=== PATIENT | female | born 1935 | race Caucasian/White ===

== ENCOUNTER 2017-09-19 18:16 | Emergency (ER) | payer BC ==
[~2017-09-19] VITALS: Ht 160 cm; Wt 62.3 kg
[~2017-09-19 18:16] MED LIST: BUPR-267 PO; ERGO500037 PO; LISI-461 PO; MAGNESIUM PO; PRX/40 PO; REPA0.5T PO; SIMV40TA2 PO; [UNRECOGNIZED DRUG - CODE] PO
[2017-09-19 18:19] VITALS: TEMP 36.3; Ht 160 cm; Wt 62.3 kg
[2017-09-19] MEDS ORDERED: ZCR40 PO (18:51)
[2017-09-19] MEDS ORDERED: METF500T5 PO (18:51)
[2017-09-19] MEDS ORDERED: SITA100T3 PO (18:51)
[2017-09-19] MEDS ORDERED: ASPI81TA28 PO (18:51)
[2017-09-19] MEDS ORDERED: TPRSR/25 PO (18:51)
[2017-09-19] MEDS ORDERED: PXL20 PO (18:51)
[2017-09-19] MEDS ORDERED: MULT-1092 PO (18:51)
[2017-09-19 18:52] LABS: BASO % 0.1 %; BASO ABS # 0.01 K/uL (0-0.2); COMPLETE YES; EOS % 1.1 %; HEMATOCRIT 44.5 % (37-47); IG% 0.1 %; MEAN CELL VOLUME 89.9 fL (80-100); MEAN CORPUSCULAR HEMOGLOBIN 30.1 pg (25-34); MEAN CORPUSCULAR HGB CONC 33.5 g/dl (32-36); MEAN PLATELET VOLUME 10.5 fL (7.4-10.4); MONO % 6.1 %; NEUT % 61.6 %; PLATELET COUNT 235 K/uL (130-400); RED BLOOD COUNT 4.95 M/uL (4.2-5.4); WHITE BLOOD COUNT 7.09 K/uL (4.8-10.8)
[2017-09-19 19:14] LABS: BUN/CREATININE RATIO 18.4 (10-20); CALCIUM 9.5 mg/dl (8.5-10.1); CREATININE 0.94 mg/dl (0.60-1.20); POTASSIUM 4.3 mmol/L (3.5-5.1)
--- NOTE | 2017-09-19 19:34 | DIAGNOSTIC IMAGING REPORT ---
CHEST ONE VIEW PORTABLE HISTORY: EVALUATE ALTERED MENTAL STATUS/WEAKNESS COMPARISON: Chest 10/03/2013. FINDINGS: The lungs are clear. Cardiac silhouette is normal in size. No pleural effusions. No pneumothorax. Mild elevation the right hemidiaphragm, unchanged. Calcified thoracic aorta is also unchanged. IMPRESSION: No significant change compared to the prior study. No acute process. Electronically signed by: Anthony Velazquez M.D. 09/19/2017 7:33 PM Dictated Date/Time: 09/19/2017 7:31 PM
[2017-09-19] MEDS ORDERED: NovoLIN-R INSULIN PER UNIT CHARGE SC STA (19:40)
[2017-09-19 20:36] LABS: URINE APPEARANCE CLEAR (CLEAR); URINE BILIRUBIN NEG (NEG); URINE COLOR YELLOW; URINE NITRITE NEG (NEG); URINE SPECIFIC GRAVITY 1.027 (1.000-1.030); UROBILINOGEN NEG (NEG); ZZUR CULT IF INDIC CLEAN CATCH NO
[2017-09-19 20:39] LABS: MANUAL MICROSCOPIC REQUIRED? NO; REVIEW REQ? NO
--- NOTE | 2017-09-19 21:20 | EMERGENCY ROOM VISIT NOTE ---
History Report prepared by Faustino: Hailee Taylor Under the Supervision of: Dr. Alex Lynch D.O. First contact with patient: 18:24 Chief Complaint: HYPERGLYCEMIA Stated Complaint: SUGAR HAS BEEN UP AND DOWN, TIRED History of Present Illness The patient is a 82 year old female who presents to the Emergency Room with complaints of constant fatigue beginning today. The patient states that she has diabetes and her blood sugar has been high throughout the day. She reports that her blood sugar was 235 at 1730 and it was 324 at 1600. The patient's daughter states that the patient sometimes takes her medication after eating instead of before. The patient denies any abdominal pain, chest pain, and shortness of breath. She notes that she takes metformin for her diabetes. Source of History: patient Onset: today Position: other (global) Quality: other (fatigue) Associated Symptoms: No chest pain, No SOB, No abdominal pain Note: The patient complains of hyperglycemia. Review of Systems See HPI for pertinent positives & negatives. A total of 10 systems reviewed and were otherwise negative. Past Medical & Surgical Medical Problems: (1) Depression (2) Diabetes (3) Hx of migraines Family History Cardiovascular disease Diabetes mellitus Social History Smoking Status: Never Smoker Drug Use: none Marital Status: Housing Status: lives alone Occupation Status: retired Current/Historical Medications Scheduled Aspirin (Aspirin Ec), 81 MG PO DAILY Metformin Hcl Er (Glucophage Er), 1,000 MG PO BIDM Metoprolol Succinate (Metoprolol Succinate ER), 25 MG PO DAILY Multiple Vitamins W/ Minerals (Centrum Silver 50+Women), 1 TAB PO DAILY Paroxetine (Paroxetine HCl), 30 MG PO DAILY Simvastatin (Simvastatin), 40 MG PO QPM Sitagliptin Phosphate (Januvia), 100 MG PO DAILY Allergies Coded Allergies: Amoxicillin (Verified Allergy, Unknown, UNKNOWN, 05/07/15) Physical Exam Vital Signs Date Time Temp Pulse Resp B/P (MAP) Pulse Ox O2 Delivery O2 Flow Rate FiO2 09/19/17 21:57 82 18 160/82 96 Room Air 09/19/17 20:59 79 18 94 Room Air 09/19/17 19:11 76 09/19/17 19:10 85 18 152/76 97 Room Air 09/19/17 18:19 36.3 108 19 179/92 97 Room Air Physical Exam CONSTITUTIONAL/VITAL SIGNS: Reviewed / noted above. GENERAL: Non-toxic in appearance. INTEGUMENTARY: Warm, dry, and [place]. HEAD: Normocephalic. EYES: without scleral icterus or trauma. ENT/OROPHARYNX: clear and moist. LYMPHADENOPATHY/NECK: Is supple without lymphadenopathy or meningismus. RESPIRATORY: Lungs clear and equal. CARDIOVASCULAR: Regular rate and rhythm. GI/ABDOMEN: Soft and nontender. No organomegaly or pulsatile mass. No rebound or guarding. Normal bowel sounds. EXTREMITIES: Warm and well perfused. BACK: No CVA tenderness. NEUROLOGICAL: Intact without focal deficits. PSYCHIATRIC: normal affect. MUSCULOSKELETAL: Normally developed with good muscle tone. Medical Decision & Procedures ER Provider Diagnostic Interpretation: X ray results and stated below per my interpretation and radiology interpretation. CHEST ONE VIEW PORTABLE FINDINGS: The lungs are clear. Cardiac silhouette is normal in size. No pleural effusions. No pneumothorax. Mild elevation the right hemidiaphragm, unchanged. Calcified thoracic aorta is also unchanged. IMPRESSION: No significant change compared to the prior study. No acute process. Electronically signed by: Anthony Velazquez M.D. 09/19/2017 7:33 PM Dictated Date/Time: 09/19/2017 7:31 PM Laboratory Results 09/19/17 18:35 Red Blood Count 4.95, Mean Corpuscular Volume 89.9, Mean Corpuscular Hemoglobin 30.1, Mean Corpuscular Hemoglobin Concent 33.5, Mean Platelet Volume 10.5, Neutrophils (%) (Auto) 61.6, Lymphocytes (%) (Auto) 31.0, Monocytes (%) (Auto) 6.1, Eosinophils (%) (Auto) 1.1, Basophils (%) (Auto) 0.1, Neutrophils # (Auto) 4.36, Lymphocytes # (Auto) 2.20, Monocytes # (Auto) 0.43, Eosinophils # (Auto) 0.08, Basophils # (Auto) 0.01 09/19/17 18:35 Test 09/19/17 18:35 09/19/17 20:30 09/19/17 20:35 White Blood Count 7.09 K/uL (4.8-10.8) Red Blood Count 4.95 M/uL (4.2-5.4) Hemoglobin 14.9 g/dL (12.0-16.0) Hematocrit 44.5 % (37-47) Mean Corpuscular Volume 89.9 fL (80-100) Mean Corpuscular Hemoglobin 30.1 pg (25-34) Mean Corpuscular Hemoglobin Concent 33.5 g/dl (32-36) Platelet Count 235 K/uL (130-400) Mean Platelet Volume 10.5 fL (7.4-10.4) Neutrophils (%) (Auto) 61.6 % Lymphocytes (%) (Auto) 31.0 % Monocytes (%) (Auto) 6.1 % Eosinophils (%) (Auto) 1.1 % Basophils (%) (Auto) 0.1 % Neutrophils # (Auto) 4.36 K/uL (1.4-6.5) Lymphocytes # (Auto) 2.20 K/uL (1.2-3.4) Monocytes # (Auto) 0.43 K/uL (0.11-0.59) Eosinophils # (Auto) 0.08 K/uL (0-0.5) Basophils # (Auto) 0.01 K/uL (0-0.2) RDW Standard Deviation 42.8 fL (36.4-46.3) RDW Coefficient of Variation 13.2 % (11.5-14.5) Immature Granulocyte % (Auto) 0.1 % Immature Granulocyte # (Auto) 0.01 K/uL (0.00-0.02) Anion Gap 8.0 mmol/L (3-11) Est Creatinine Clear Calc Drug Dose 36.8 ml/min Estimated GFR () 64.6 Estimated GFR (Non- 55.7 BUN/Creatinine Ratio 18.4 (10-20) Calcium Level 9.5 mg/dl (8.5-10.1) Urine Color YELLOW Urine Appearance CLEAR (CLEAR) Urine pH 5.0 (4.5-7.5) Urine Specific [place] 1.027 (1.000-1.030) Urine Protein NEG (NEG) Urine Glucose (UA) 3+ (NEG) Urine Ketones TRACE (NEG) Urine Occult Blood NEG (NEG) Urine Nitrite NEG (NEG) Urine Bilirubin NEG (NEG) Urine Urobilinogen NEG (NEG) Urine Leukocyte Esterase NEG (NEG) Urine WBC (Auto) 1-5 /hpf (0-5) Urine RBC (Auto) 0-4 /hpf (0-4) Urine Hyaline Casts (Auto) 1-5 /lpf (0-5) Urine Epithelial Cells (Auto) 10-20 /lpf (0-5) Urine Bacteria (Auto) NEG (NEG) Bedside Glucose 157 mg/dl (70-90) Laboratory results as stated above per my review. Medications Administered Medications (Trade) Dose Ordered Sig/Joaquin Route Start Time Stop Time Status Last Admin Dose Admin Insulin Human Regular (novoLIN-R U-100 PER UNIT) 3 units NOW STAT SC 09/19/17 19:40 09/19/17 19:41 DC 09/19/17 19:56 3 UNITS ECG Indication: other Rate (beats per minute): 79 Rhythm: sinus rhythm Findings: PAC, no acute ischemic change ED Course 1823: Previous medical records were reviewed. The patient was evaluated in room B9. A complete history and physical examination was performed. 1939: Insulin Human Regular 3 units SC. Medical Decision Differential includes acute coronary syndrome, myocardial infarction, CVA, TIA, anemia, infection, pneumonia, UTI, pyelonephritis, poor nutrition, dehydration, electrolyte disturbance,hypoglycemia. This is an 82-year-old female who presents to the ED with a chief complaint of blood sugars being up and down. The patient also reports fatigue and tiredness. She has no other complaints. Denies chest pains, shortness of breath or abdominal pains. No vomiting or diarrhea. No recent illness. No fevers. Her physical exam was normal. CBC is normal, chemistry panel was normal with exception of glucose of 242. EKG shows a sinus rhythm. The patient was given subcutaneous insulin 3 units. Urine did not show infection. The patient was told the results. She is felt to be stable for discharge. Medication Reconcilliation Current Medication List: was personally reviewed by me Blood Pressure Screening Patient's blood pressure: Elevated blood pressure Blood pressure disposition: Referred to PCP Impression Primary Impression: Hyperglycemia Scribe Attestation The scribe's documentation has been prepared under my direction and personally reviewed by me in its entirety. I confirm that the note above accurately reflects all work, treatment, procedures, and medical decision making performed by me. Departure Information Referrals Ronda Merrill (PCP) Patient Instructions My [facility] Additional Instructions Drink plenty of water. Talk to your doctor next week about your high blood sugars.
[2017-09-19 21:57] VITALS: BP 160/82; PULSE 82; O2SAT 96
== END 2017-09-19 21:59 | disposition home or self-care (01) ==
LOC: C.EDB 18:17
DX: E11.65 Type 2 diabetes mellitus with hyperglycemia (principal); F32.9 Major depressive disorder, single episode, unspecified; Z79.84 Long term (current) use of oral hypoglycemic drugs; Z79.82 Long term (current) use of aspirin

== ENCOUNTER 2019-09-29 04:02 | Inpatient (IN) ==
[2019-09-29] MEDS ORDERED: AMIODARONE IV BOLUS / DRIP IV STA (04:32)
[2019-09-29] MEDS ORDERED: AMIODARONE / D5W 150 MG/100 ML BAG IV STA (04:32)
[2019-09-29] MEDS ORDERED: ONDANSETRON INJ 2 MG/ML 2 ML VIAL ONE (04:38)
[2019-09-29 04:45] LABS: Basophils # (auto) 0.01 K/uL (0-0.2); Basophils % (auto) 0.1 %; Eosinophils # (auto) 0.03 K/uL (0-0.5); Eosinophils % (auto) 0.4 %; Hematocrit (blood only) 36.7 % (37-47); Hemoglobin 12.2 g/dL (12.0-16.0); Immature Granulocytes # (auto) 0.02 K/uL (0.00-0.02); Immature Granulocytes % (auto) 0.3 %; Lymphocytes # (auto) 1.79 K/uL (1.2-3.4); Lymphocytes % (auto) 25.6 %; Mean Corpuscular Hgb Conc 33.2 g/dL (32-36); Mean Corpuscular Volume 90.4 fL (80-100); Mean Platelet Volume 10.9 fL (7.4-10.4); Monocytes # (auto) 0.53 K/uL (0.11-0.59); Monocytes % (auto) 7.6 %; Platelet Count 211 K/uL (130-400); RDW Coefficient of Variation 13.7 % (11.5-14.5); RDW Standard Deviation 45.2 fL (36.4-46.3); Red Blood Count 4.06 M/uL (4.2-5.4); White Blood Count 6.98 K/uL (4.8-10.8)
[2019-09-29] MEDS ORDERED: AMIODARONE / D5W 360 MG/200 ML BAG IV SCH ×2 (04:45→10:33)
[2019-09-29 05:02] LABS: Albumin Level 3.5 gm/dl (3.4-5.0); BUN Creatinine Ratio 19.7 (10-20); Calcium 8.2 mg/dl (8.5-10.1); Creatinine Clr Calc Pharmacy 35.3 ml/min; Est GFR (African American) 53.8; Est GFR (Non-African American) 46.4; Potassium 3.8 mmol/L (3.5-5.1)
[2019-09-29 05:07] LABS: Albumin Globulin Ratio 1.1 (0.9-2); Bilirubin,Total 0.8 mg/dl (0.2-1); Globulin 3.2 gm/dl (2.5-4.0); Total Protein 6.7 gm/dl (6.4-8.2); Troponin I 1.99 ng/ml (0-0.045)
--- NOTE | 2019-09-29 06:43 | Emergency Department Note ---
Entered by Jose Campos acting as a scribe for Adelina Dang DO History of Present Illness General Chief complaint: Cardiac Assessment Stated complaint: SHOULDER PAIN Time Seen by Provider: 09/29/19 04:21 Source: patient and family History of Present Illness Provider complaint: arm pain Onset (ago): day(s) 5 Location: upper extremity and right Radiation: other (left arm and jaw) Pain Consistency: + intermittent Quality: + other (numbing) Associated symptoms: + denies other symptoms The patient is an 84 y/o female who presents to the emergency department for evaluation of intermittent right arm pain that began 5 days ago. The patients daughter states that the patient has been complaining of right sided arm pain in the middle of the arm since last Thursday after she raked some leaves. They note that the pain was managed by pain relievers but tonight has escalated with pain in both arms and the jaw. The daughter reports that the patient has also been more short of breath which is new for her. The patient states that the arm pain also makes her arms feel numb down into her fingertips. The patient denies any other symptoms. Home Medications Home Medications Medication Instructions Recorded Confirmed Type aspirin 81 mg PO DAILY 04/15/19 09/29/19 History escitalopram oxalate 20 mg PO DAILY 04/15/19 09/29/19 History esomeprazole magnesium 40 mg PO DAILY 04/15/19 09/29/19 History lisinopril 5 mg PO DAILY 04/15/19 09/29/19 History metformin 1,000 mg PO BID 04/15/19 09/29/19 History simvastatin 40 mg PO DAILY 04/15/19 09/29/19 History sitagliptin [Januvia] 100 mg PO DAILY 04/15/19 09/29/19 History cyanocobalamin (vitamin B-12) 1,000 mcg PO 3XWK 09/29/19 09/29/19 History [Vitamin B-12] Allergies Allergy/AdvReac Type Severity Reaction Status Date / Time amoxicillin Allergy Unknown UNKNOWN Verified 09/29/19 05:41 Past Med/Surg History Medical History Diabetes (Chronic) Social History Preferred Language: Albanian Feels Safe at Home: Yes Smoking Status: Never smoker Review of Systems See HPI for pertinent positives & negatives. and A total of 10 systems reviewed and were otherwise negative Physical Exam Vital Signs Vital Signs - 24 hr 09/29/19 04:06 09/29/19 04:17 09/29/19 04:19 Pulse Rate 160 H Pulse Rate from SpO2 Sensor Respiratory Rate 22 Respiratory Effort / Characteristics Non-Labored Spontaneous Respiratory Depth Normal Respiratory Pattern Regular Blood Pressure 117/83 Blood Pressure Mean 94 Blood Pressure Position Sitting Pulse Oximetry 97 88 L 88 L Oxygen Delivery Method Room Air Room Air Room Air Oxygen Flow Rate Sepsis Recent Fever Within 48 Hours No Sepsis Action Taken by Nursing No Action Required Pulse Oximetry Post Tiitration 95 09/29/19 04:22 09/29/19 04:30 09/29/19 04:34 Pulse Rate 155 H 159 H 158 H Pulse Rate from SpO2 Sensor 155 H 159 H 160 H Respiratory Rate 35 H Respiratory Effort / Characteristics Respiratory Depth Respiratory Pattern Blood Pressure 124/91 Blood Pressure Mean 96 Blood Pressure Position Pulse Oximetry 91 95 94 Oxygen Delivery Method Nasal Cannula Nasal Cannula Oxygen Flow Rate 2 3 3 Sepsis Recent Fever Within 48 Hours Sepsis Action Taken by Nursing Pulse Oximetry Post Tiitration 09/29/19 04:44 09/29/19 04:45 09/29/19 05:00 Pulse Rate 158 H 158 H 89 Pulse Rate from SpO2 Sensor 158 H 90 Respiratory Rate 24 32 H 19 Respiratory Effort / Characteristics Respiratory Depth Respiratory Pattern Blood Pressure 122/92 122/86 126/80 Blood Pressure Mean 99 97 101 Blood Pressure Position Pulse Oximetry 93 91 Oxygen Delivery Method Nasal Cannula Oxygen Flow Rate 3 3 4 Sepsis Recent Fever Within 48 Hours Sepsis Action Taken by Nursing Pulse Oximetry Post Tiitration 09/29/19 05:15 09/29/19 05:30 09/29/19 05:45 Pulse Rate 93 H 91 H 90 Pulse Rate from SpO2 Sensor 93 H 91 H 91 H Respiratory Rate 28 H 26 H 30 H Respiratory Effort / Characteristics Respiratory Depth Respiratory Pattern Blood Pressure 135/82 139/89 134/85 Blood Pressure Mean 102 113 108 Blood Pressure Position Pulse Oximetry 94 95 95 Oxygen Delivery Method Nasal Cannula Nasal Cannula Nasal Cannula Oxygen Flow Rate 3 3 3 Sepsis Recent Fever Within 48 Hours Sepsis Action Taken by Nursing Pulse Oximetry Post Tiitration 09/29/19 06:00 09/29/19 06:15 Pulse Rate 89 90 Pulse Rate from SpO2 Sensor 89 90 Respiratory Rate 28 H 33 H Respiratory Effort / Characteristics Respiratory Depth Respiratory Pattern Blood Pressure 134/77 133/82 Blood Pressure Mean 103 103 Blood Pressure Position Pulse Oximetry 97 96 Oxygen Delivery Method Nasal Cannula Nasal Cannula Oxygen Flow Rate 3 3 Sepsis Recent Fever Within 48 Hours Sepsis Action Taken by Nursing Pulse Oximetry Post Tiitration HEENT: Head - normocephalic and atraumatic. Pupils are equal, round, and reactiv e to light. Extraocular eye muscles are intact, and sclera are anicteric. Nose - moist nasal mucosa without discharge. Mouth - moist buccal mucosa. Oropharynx is nonerythematous and there is no tonsillar exudate or edema noted. Neck: Supple; no JVD, nuchal rigidity, cervical lymphadenopathy, or auscultated bruits. Heart: Tachycardic rate and rhythm. There is a normal S1 and S2 with no murmurs, clicks, or gallops appreciated. Lungs: Clear to auscultation bilaterally with no wheezes, rales, or rhonchi. Abdomen: Soft, completely nontender, nondistended, with good bowel sounds. There are no palpable pulsatile masses or hepatosplenomegaly. There is no guarding, rigidity, or rebound noted. Extremities: No evidence of cyanosis, clubbing, or edema. There are easily palpable peripheral pulses. Skin: pale, diaphoretic, and warm with good turgor and no rashes. Course Course 0424: Past medical records reviewed. The patient was evaluated in room B11. A complete history and physical exam was performed. An IV lock was initiated and labs were drawn as above. I ordered continuous cardiac monitoring which revealed ventricular tachycardia at a rate of 160. A twelve-lead EKG was obtained. A portable chest x-ray was performed. 0432: I ordered an amiodarone bolus with an IV amiodarone drip. 0438: I ordered Zofran 4 mg IV. 0446: The patient is being moved to B1. 0459: I checked on the patient. She appears much better and her heart rate is down in the 90s. She is no longer in ventricular tachycardia. She is in a normal sinus rhythm. Her twelve-lead EKG will be repeated. 0511: I discussed admission with the patient and family. The patient is currently feeling much better. 0515: I spoke with Dr. Vivian Alexander hospitalist. Who will evaluate for further management. Administered Medications Amiodarone HCl/Dextrose (Nexterone / D5w) 360 mg in 200 mls @ 33.333 mls/hr IV .Q6H BRISEIDA Stop: 09/29/19 10:44 Last Admin: 09/29/19 04:58 Dose: 1 mg/min, 33.3 mls/hr Documented by: [id number] Cosigned by: [id number] Discontinued Medications Amiodarone HCl (Cordarone Iv Bolus / Drip) 1 ea IV NOW STA; Protocol Stop: 09/29/19 04:33 Last Admin: 09/29/19 05:02 Dose: Not Given Documented by: [id number] Amiodarone HCl/Dextrose (Nexterone / D5w) 150 mg in 100 mls @ 600 mls/hr IV ONE STA Stop: 09/29/19 04:41 Last Infusion: 09/29/19 04:55 Dose: 0 mls/hr Documented by: [id number] Cosigned by: [id number] Admin: 09/29/19 04:44 Dose: 600 mls/hr Documented by: [id number] Cosigned by: [id number] Ondansetron HCl (Zofran) Confirm Administered Dose 4 mg .ROUTE .STK-MED ONE Stop: 09/29/19 04:39 Last Admin: 09/29/19 04:56 Dose: 4 mg Documented by: [id number] Critical Care Time Critical Care Time: Yes Total Critical Care Time: 75 I have personally spent 75 minutes of critical care time in the direct managem ent of this patient. This includes bedside care, interpretation of diagnostic studies, and testing, discussion with consultants, patient, and family members, and other required patient management activities. This 75 minutes is in excess of all separately billable procedures. Medical Decision Making Differential Diagnosis Differential diagnosis: STEMI, cardiac dysrhythmia, aortic dissection, NSTEMI Medical Records Attestation: I reviewed the patient's medical records. Home Medications Current Medication List: was personally reviewed by me Laboratory Data Attestation: I reviewed the patient's lab results. Result diagrams: 09/29/19 04:33 09/29/19 04:33 Lab Results 09/29/19 09/29/19 Range/Units 04:33 04:33 WBC 6.98 (4.8-10.8) K/uL RBC 4.06 L (4.2-5.4) M/uL Hgb 12.2 (12.0-16.0) g/dL Hct 36.7 L (37-47) % MCV 90.4 (80-100) fL MCH 30.0 (25-34) pg MCHC 33.2 (32-36) g/dL RDW Std Deviation 45.2 (36.4-46.3) fL RDW Coeff of Yohannes 13.7 (11.5-14.5) % Plt Count 211 (130-400) K/uL MPV 10.9 H (7.4-10.4) fL Immature Gran % (Auto) 0.3 % Neut % (Auto) 66.0 % Lymph % (Auto) 25.6 % Coal % (Auto) 7.6 % Eos % (Auto) 0.4 % Baso % (Auto) 0.1 % Immature Gran # (Auto) 0.02 (0.00-0.02) K/uL Neut # (Auto) 4.60 (1.4-6.5) K/uL Lymph # (Auto) 1.79 (1.2-3.4) K/uL [place] # (Auto) 0.53 (0.11-0.59) K/uL Eos # (Auto) 0.03 (0-0.5) K/uL Baso # (Auto) 0.01 (0-0.2) K/uL Sodium 137 (136-145) mmol/L Potassium 3.8 (3.5-5.1) mmol/L Chloride 104 (98-107) mmol/L Carbon Dioxide 24 (21-32) mmol/L Anion Gap 9.0 (3-11) BUN 21 H (7-18) mg/dl Creatinine 1.08 (0.6-1.2) mg/dl Est Cr Clr Drug Dosing 35.3 ml/min Est GFR ( Amer) 53.8 Est GFR (Non-Af Amer) 46.4 BUN/Creatinine Ratio 19.7 (10-20) Glucose 256 H (70-99) mg/dl Calcium 8.2 L (8.5-10.1) mg/dl Total Bilirubin 0.8 (0.2-1) mg/dl AST 82 H (15-37) U/L ALT 81 H (12-78) U/L Alkaline Phosphatase 75 (45-117) U/L Troponin I 1.990 H* (0-0.045) ng/ml Total Protein 6.7 (6.4-8.2) gm/dl Albumin 3.5 (3.4-5.0) gm/dl Globulin 3.2 (2.5-4.0) gm/dl Albumin/Globulin Ratio 1.1 (0.9-2) Lipase 89 (73-393) U/L Imaging Data Attestation: I personally reviewed and interpreted this imaging study as follows: My Impression: Portable chest x-ray showed no pulmonary pathology and normal mediastinum. Calcified aorta noted. ECG Data Attestation: I personally reviewed and interpreted this ECG as follows: Indication: + back/shoulder pain Rate (beats per minute): 157 Rhythm: + v-tach ECG ST segments: + ST elevation (V4/V5) Comparison ECG Date: from (09/19/17) Additional Comments: repeat EKG at 0457 Normal sinus at 87 bpm Occasional PVC noted RBBB ST depression in V4, V5, A and AVL Blood Pressure Blood Pressure Findings: Elevated blood pressure Blood Pressure Disposition: further management by hospitalist MIKAL Calderón The patient is an 84 y/o female who presents to the emergency department for evaluation of intermittent right arm pain that began 5 days ago. The patient awoke this morning with increased shortness of breath, bilateral upper arm pain and jaw pain. On physical exam, the patient is pale and appears tachypneic. EKG is concerning for ventricular tachycardia. Initially, she was hemodynamically stable. The patient had 2 large-bore IV locks initiated and she was placed on the code cart with defibrillation pads in place. The patient was started on IV amiodarone bolus and then a drip. The patient's heart rate came back down to normal and she went back into normal sinus rhythm after bolus of amiodarone. She will be maintained on an amiodarone drip and admitted to the ICU. Patient had an elevated troponin on laboratory testing. Repeat EKG showed normal sinus rhythm with some ST segment depression but no obvious ST segment elevation. Her arm pain and jaw pain has subsided. Impression & Plan Ventricular tachycardia, Non-ST elevation CA (NSTEMI) Discharge Plan Visit Data Chief Complaint: Cardiac Assessment Stated Complaint: SHOULDER PAIN ED Provider: Adelina Dang Discharge Problem: Ventricular tachycardia, Non-ST elevation CA (NSTEMI) Patient Disposition: Being Evaluated by Hospitalist Discharge Instructions Interventions: ED Discharge Assessment Last Done: 09/29/19 06:25 Forms Stand Alone Forms: My [facility] Prescriptions Prescriptions: No Action simvastatin 40 mg tablet 40 mg PO DAILY RF: 0 esomeprazole magnesium 40 mg capsule,delayed release(DR/EC) 40 mg PO DAILY RF: 0 lisinopril 5 mg tablet 5 mg PO DAILY RF: 0 metformin 500 mg tablet extended release 24 hr 1,000 mg PO BID RF: 0 escitalopram oxalate 20 mg tablet 20 mg PO DAILY RF: 0 Januvia 100 mg tablet 100 mg PO DAILY RF: 0 aspirin 81 mg Tablet,Delayed Release (Dr/Ec) 81 mg PO DAILY RF: 0 cyanocobalamin (vitamin B-12) [Vitamin B-12] 1,000 mcg Tablet Extended Release 1,000 mcg PO 3XWK RF: 0 Referrals Referrals: Teena Barrera, DO [Primary Care Provider] - The scribe's documentation has been prepared under my direction and personally reviewed by me in its entirety. I confirm that the note above accurately reflects all work, treatment, procedures, and medical decision making performed by me.
[2019-09-29] MEDS ORDERED: SODIUM CHLORIDE 0.9% 1000ML 1,000 ML IV SCH (07:10)
[2019-09-29] MEDS ORDERED: ASPIRIN 81 MG CHEW PO STA (07:10)
[2019-09-29] MEDS ORDERED: Heparin IV Standard *NO* Bolus IV SCH (07:10)
[2019-09-29] MEDS ORDERED: ICU PROTOCOL FOR HYPERGLYCEMIA PRN (07:10)
[2019-09-29] MEDS ORDERED: GLUCOSE 40% GEL 15 GM TUBE PO PRN (07:15)
[2019-09-29] MEDS ORDERED: GLUCAGON FOR INJ 1 MG VIAL IM PRN (07:15)
[2019-09-29] MEDS ORDERED: DEXTROSE 50% 50 ML SYRINGE IV PRN (07:15)
[2019-09-29] MEDS ORDERED: GLUCOSE 10 TABS/TUBE PO PRN (07:15)
[2019-09-29] MEDS ORDERED: CARBOHYDRATES FOR HYPOGLYCEMIA PO PRN (07:15)
--- NOTE | 2019-09-29 07:15 | XRay Report ---
XR chest 1V portable CLINICAL HISTORY: 84 years-old Female presenting with Chest Pain, nausea. TECHNIQUE: Portable upright AP view of the chest was obtained. COMPARISON: 09/19/2017. FINDINGS: Atherosclerosis of the aortic arch. Cardiac silhouette enlarged. Bibasilar opacity. This is new from prior. Persistent elevation of the right hemidiaphragm. Small right pleural effusion also suspected. No pneumothorax. Osteopenia. Upper abdomen normal. IMPRESSION: 1. Right basilar infiltrate compatible with pneumonia. Underlying lesion not excluded. This should b e followed to resolution. 2. Associated small right pleural effusion. 3. Cardiomegaly. No significant evidence of congestive change. The report will be called/faxed according to standard departmental protocol. ACT 112: Negative or not required by law. Electronically signed by: Lavon Rosen M.D. 09/29/2019 7:14 AM
[2019-09-29] MEDS ORDERED: POTASSIUM CHLORIDE 20 MEQ TABCR PO STA (07:23)
--- NOTE | 2019-09-29 08:36 | Critical Care Consultation ---
Date of Consultation September 29, 2019 Assessment & Plan (1) Depression: Reason Critically Ill: Ms Pritchett is an 84 year old woman who presented with chest pain and was thought to be in SVT Neuro: Neurologically intact, awake alert and oriented x4 Cardiovascular: Patient with what looks to be SVT rather than ventricular tachycardia We will continue our amiodarone IV course and metoprolol 12.5 mg TID Rate now sinus and 80's to 90's Bedside US showing what appears to be marked wall motion abnormality but will defer to official read No history of known heart disease or previous caths but has had these "shoulder pain" episodes in the past when she's working outside Dr. Palmer of cardiology consulted waiting on echo read for possible further workup. Respiratory: Patient is breathing comfortably on nasal cannula currently She has some evidence of consolidation and a small pleural effusion on the right side per bedside echo Will get procalcitonin and start on doxycycline for now as patient has a penicil woody allergy GI Abdomen exams normally apart from some mild Tenderness to palpation epigastric region NPO pending echo results and possible need for cath ID: B lines appreciated on bedside ultrasound indicative of consolidation, possible pneumonia Treating with doxycycline for possible pneumonia as patient has penicillin allergy Heme: On heparin drip currently, will continue until cardiology makes decision about ACS workup Will potentially transition to lovenox DVT PPx: heparin drip F/E/N: NPO pending decision for cath just stopped maintenance fluids will either resume or start diet Dispo: Continue to stay in ICU until decision made for possible catheterization. (2) Diabetes: (3) Non-ST elevation MO (NSTEMI): (4) Near syncope: Supervising Physician Co-Signing Physician Notes Dr. Fuentes was the resident-physician during care of patient. I separately evaluated patient for newman portions of the history and the exam. I was present during the critical portion of medical decision making, and I discussed the case with the resident. I generally agree with the findings and plan except for any additions/exceptions noted. Patient seen and examined at bedside. Feeling better in the ICU. Denies any palpitations. No dizziness. No shortness of breath. Patient never had such episode in the past. She has a history of dyslipidemia and hypertension. She might not be compliant with her hypertension medication as per the daughter. Positive runny nose and tearing from the eyes couple of days prior. Dry cough. No fever or chills. No dysuria, no diarrhea. Denies any weight gain or weight loss. Based on the EKG there is discordance in the lateral leads which goes against ventricular tachycardia it was most likely SVT versus A. fib. Patient is on amiodarone right now. We will start the patient on metoprolol 12.5 mg every 6 hours with holding parameters. On the repeat EKG is sinus rhythm with right bundle branch block, and left anterior fascicular block, there is ST depression appreciated in the lateral leads V4, V5, V6. Elevated troponin. We will trend troponin. Continue with ACS protocol. Patient is already on statin, aspirin, lisinopril. Will start her on Plavix 75 mg. Follow-up influenza a and B Official echo has been ordered. Cardiology has been consulted. Will follow recommendation Strict in and out. BiPAP nightly and PRN shortness of breath. I have personally spent 60 minutes of critical care time in the direct management of this patient. This is a life/limb threatening event. This inc ludes time spent evaluating patient, direct bedside care, chart review, placing orders, interpretation of diagnostic studies, discussion with consultants, patient, and/or family members regarding treatment decisions, as well as other required patient management activities. This time is exclusive of all separately billable procedures, and teaching time and separate from and in addition to any other critical care service time. History of Present Illness Reason for Consultation: Patient with wide complex tachycardia on admission Requesting Physician: Vivian Attending Physician: Rand Johnston MD History of Present Illness Ms. Jacob Pritchett is an 84 year old woman with a past medical history of HTN, HLD, GERD, DM II who presented to emergency department for bilateral shoulder/arm pain. She had been having pain in her arms off and on for several days about five different episodes. Last night her pain was the worst and moved across both shoulders and into her back and was associated with shortness of breath and diaphoresis. Episode started around 11:30 Daughter was called and saw her at home around 2:30 am this morning. Her daughter decided she needed to come into the emergency department. On presentation to the ED she was notably tachycardic in a wide complex tachycardia which was suspicious for V tach. Patients blood pressure remained stable throughout. Labwork was notable for an elevated troponin of 1.9 and elevated AST and ALT both into the 80's. Patient was started on an amiodarone drip, returned to a sinus rhythm with evidence of RBBB and bifascicular block but rate improved from about 150 bpm down to 80 bpm and patient was transferred down to the ICU. Patient with no history of these episodes before, no history of cardiac catheterization, no history of MO, no history of CVA. Multiple children of hers do have CAD and her father in his forties from heart disease. Allergies Allergy/AdvReac Type Severity Reaction Status Date / Time amoxicillin Allergy Unknown UNKNOWN Verified 09/29/19 05:41 Home Medications Home Medications Medication Instructions Recorded Confirmed Type aspirin 81 mg PO DAILY 04/15/19 09/29/19 History escitalopram oxalate 20 mg PO DAILY 04/15/19 09/29/19 History esomeprazole magnesium 40 mg PO DAILY 04/15/19 09/29/19 History lisinopril 5 mg PO DAILY 04/15/19 09/29/19 History metformin 1,000 mg PO BID 04/15/19 09/29/19 History simvastatin 40 mg PO DAILY 04/15/19 09/29/19 History sitagliptin [Januvia] 100 mg PO DAILY 04/15/19 09/29/19 History cyanocobalamin (vitamin B-12) 1,000 mcg PO 3XWK 09/29/19 09/29/19 History [Vitamin B-12] Patient History Medical History Diabetes (Chronic) Social History Preferred Language: Armenian Communication Ability: Effective 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 Respiratory: + cough (Starting this morning) and + dyspnea (Starting this morning.) Gastrointestinal: + nausea; no abdominal pain and no vomiting Genitourinary: no problem reported Physical Exam Physical Exam: COnstitutional: Well appearing 84 year old woman appearing younger than stated age resting comfortably in bed in no apparent distress with nasal cannula in place Eyes: EOMMI bilaterally, no scleral icterus Respiratory: Chest expansion symmetric, no accessory muscle use, lungs clear to auscultation no rales or crackles good air entry globally Cardiovascular: Regular rate regular rhythm, loud systolic ejection murmur, no lower limb edema, pulses strong. GI: Abdomen soft, mildly tender epigastric region Skin: Warm dry no rashes Results & Data Vital Signs (Past 12 Hours) Vital Signs Temp Pulse Pulse Resp BP BP Pulse Ox 09/29/19 06:47 36.3 C L 96 H 16 173/76 H 98 09/29/19 06:15 90 33 H 133/82 96 09/29/19 06:00 89 28 H 134/77 97 09/29/19 05:45 90 30 H 134/85 95 09/29/19 05:30 91 H 26 H 139/89 95 09/29/19 05:15 93 H 28 H 135/82 94 09/29/19 05:00 89 19 126/80 91 09/29/19 04:45 158 H 32 H 122/86 93 09/29/19 04:44 158 H 24 122/92 09/29/19 04:34 158 H 124/91 94 09/29/19 04:30 159 H 95 09/29/19 04:22 155 H 35 H 91 09/29/19 04:19 88 L 09/29/19 04:17 88 L 09/29/19 04:06 160 H 22 117/83 97 09/29/19 04:33 09/29/19 04:33 Resident Activity Tracking Resident Involvement: Resident Care Provided Care Provided: Adult Hospital Medicine
[2019-09-29 08:48] LABS: INR 1.1 (0.9-1.1); Partial Thromboplastin Ratio 0.9; Partial Thromboplastin Time 24.9 Seconds (21.0-31.0); Prothrombin Time 11.2 Seconds (9.0-12.0)
[2019-09-29] MEDS: HEPARIN SODIUM/DEXTROSE 25,000 UNITS/500 ML BAG IV SCH (08:52)
[2019-09-29] MEDS: MAGNESIUM SULFATE / D5W 1 GM/100 ML BAG IV SCH ×2 (08:52→10:12)
[2019-09-29] MEDS: DOXYCYCLINE HYCLATE 100 MG CAP PO SCH ×2 (08:53→21:10)
[2019-09-29] MEDS: NITROGLYCERIN 2% OINTMENT 30GM TUBE EXT SCH ×2 (08:57→13:42)
[2019-09-29] MEDS: lisinopriL 5 MG TAB PO SCH (08:57)
[2019-09-29] MEDS: SIMVASTATIN 40 MG TAB PO SCH (08:57)
[2019-09-29] MEDS: ASPIRIN 81 MG ECTAB PO SCH (08:58)
[2019-09-29] MEDS: PANTOprazole 40 MG TAB PO SCH (08:59)
[2019-09-29] MEDS ORDERED: METOPROLOL TARTRATE 25 MG TAB PO SCH (09:00)
[2019-09-29] MEDS ORDERED: ASPIRIN 81 MG ECTAB PO SCH (09:00)
[2019-09-29] MEDS ORDERED: ESCITALOPRAM OXALATE 20 MG TAB PO SCH (09:00)
[2019-09-29] MEDS: INSULIN ASPART 100 UNITS/ML 3 ML PEN SC SCH ×4 (09:06→21:11)
--- NOTE | 2019-09-29 09:08 | History and Physical Report ---
DATE OF ADMISSION: 09/29/2019 CHIEF COMPLAINT: Chest pain. HISTORY OF PRESENT ILLNESS: This is an 84-year-old female with past medical history significant for diabetes, depression with anxiety, hyperlipidemia, presents with chest pain. The patient was raking leaves and she was having right arm pain since last 2 weeks on and off, for which she was using Tylenol, but yesterday she had Paulina dinner with her daughter. Daughter lives close by. The patient lives alone and daughter dropped the patient home at 5 p.m. and around 2:30 a.m. the patient called the daughter stating that she is having chest pain all over the chest radiating to her left arm and left hand is numb and also going to left shoulder and jaw region. Daughter came and brought the patient to the ER. In the ER when she came in, the patient's EKG showed wide complex tachycardia. She was started on amiodarone drip and converted to sinus rhythm. Currently, patient is resting comfortably, hemodynamically stable and symptoms resolved. During the episode, she was short of breath and nauseous but improved now. Denies any headache, no dizziness, no blurred vision. Hard of hearing. No sore throat, no difficulty swallowing. Appetite is okay. At one point she has had difficulty swallowing pills and she was placed on Nexium. No cough, no fevers, no nausea currently, no abdominal pain. Normal bowel and bladder movements. No blood in stools or black stools. Today, she felt she might have noticed some blood in the urine, but hemoglobin is stable on the lab work. ALLERGIES: AMOXICILLIN. PAST MEDICAL HISTORY: As mentioned above. PAST SURGICAL HISTORY: Cataract surgery. MEDICATIONS: The patient is on metformin 1000 mg daily, Lexapro 20 mg p.o. daily, Januvia 100 mg daily, simvastatin 40 mg daily, cyanocobalamin 1000 mcg daily, Nexium 40 mg at bedtime, lisinopril 5 mg daily, aspirin 81 mg p.o. daily. FAMILY HISTORY: No family history in file. SOCIAL HISTORY: Currently living alone. No smoking, no alcohol, no drug use. REVIEW OF SYMPTOMS: As per HPI. Rest of review of systems negative. PHYSICAL EXAMINATION: GENERAL: The patient is old and frail, not in acute distress. VITAL SIGNS: Temperature afebrile, pulse 93, respiratory rate in 20s, blood pressure 134/85, oxygen 95% on 3 liters. HEENT: No pallor, no icterus. NECK: No JVD, no neck masses, no carotid bruits. CARDIOVASCULAR: S1, S2 heard, regular rate and rhythm, no murmur, no gallop. RESPIRATORY SYSTEM: Normal AP diameter. No accessory muscle use. No wheezing, no crackles. ABDOMEN: Soft, bowel sounds present. Mild left lower quadrant tenderness, no guarding, no rigidity. No distention. CENTRAL NERVOUS SYSTEM: Cranial nerves II-XII grossly nonfocal. EXTREMITIES: No edema, no erythema. LABORATORY DATA: WBC 6.89, hemoglobin 12.2, hematocrit 36.7, platelets 211. Sodium 137, potassium 3.8, chloride 101, bicarbonate 24, BUN 21, creatinine 1.01. Serum glucose 256, calcium 8.2, total bilirubin 0.8, AST 82, ALT 81, alkaline phosphatase 75. Troponin 1.9, lipase 89. Chest x-ray: No acute findings. EKG: Wide QRS tachycardia at rate of 167, right bundle branch block, left anterior fascicular block. Repeat EKG showing sinus rhythm with occasional PVCs and PACs at rate of 87, right bundle branch block, left anterior fascicular block. ASSESSMENT AND PLAN: This is an 84-year-old female who presents with chest pain and presents with ventricular tachycardia, currently in sinus rhythm. 1. Ventricular tachycardia, resolved with IV amiodarone, which we will continue, possibly secondary to Non St elevated myocardial infarction. Patient presented with chest pain and troponin is 1.9. Started on IV heparin. Continue amiodarone drip. We will place on nitro paste and aspirin. Follow serial cardiac enzymes, echocardiogram, and consulted and notified Cardiology. Closely monitor in the ICU for now. 2. Questionable hematuria. The patient says she saw some blood in the urine today, but hemoglobin is stable. We will follow urinalysis. Closely monitor as started on IV heparin. 3. Diabetes. Hold metformin and Januvia, placed on insulin sliding scale. Monitor blood sugars closely. 4. Hyperlipidemia. follow lipid profile. 5. Depression. Continue Lexapro. 6. Gastroesophageal reflux disease on Nexium. 7. Hypertension, on lisinopril. Currently, placed on nitro paste. We will monitor the blood pressure. 8. Deep venous thrombosis prophylaxis, on IV heparin. DISPOSITION: Closely monitor in the ICU. Level 1 full code. MTDD
--- NOTE | 2019-09-29 09:46 | Hospitalist Progress Note ---
Date of Service September 29, 2019 Assessment & Plan (1) Chest pain: (2) Non-ST elevation PR (NSTEMI): Chest pain, elevated troponin (Initial trop was 1.99) EKG showed wide complex tachycardia. Initially thought to be ventricular tachycardia and started on amiodarone drip. However, patient has old bifascicular block from review of EKG from June 2017. Discontinue amiodarone drip for now Continue to trend troponin. QTc 534. Avoid QT prolonging medications Follow-up echo done this morning Discussed with science faculty member Dr. Palmer. Got Aspirin 325 loading Will follow-up science faculty member recommendations about possible catheterization and management Patient reports cough for cough. Chest x-ray showed right basilar infiltrate Started on doxycycline for right lower lobe pneumonia due to reported allergy to penicillins (3) Diabetes: DM type II Hemoglobin A1c 7.8 Hold metformin and Januvia home medication Monitor with Lantus and sliding scale for now. Monitor blood glucose. (4) Depression: Stable Home citalopram on hold for now. (5) Hypertension: Stable. Continue home medications Monitor blood pressure (6) DVT prophylaxis: On hep gtt for NSTEMI Subjective Patient seen and examined this morning. Reports that chest pain resolved in the ER. Reported shortness of breath at time of chest pain Denied any arm or shoulder pain at this time. Reports nonproductive cough recently. Denies any fevers, chills, nausea, vomiting Denied any orthopnea, dyspnea exertion, PND, leg swelling Denied any dizziness, syncope Review of Systems Review of Systems: All systems reviewed and unremarkable except for mentioned above. Physical Exam Physical Exam: General: Elderly woman in no distress Eyes: PERRL, conjunctivae normal, EOM intact bilaterally ENMT: External ear and nose normal, oropharynx normal Neck: Normal visual inspection, no tracheal deviation, no swelling noted Respiratory: Normal respiratory effort, no respiratory distress, lungs clear to auscultation, no crackles and no wheezes Cardiovascular: Pulse is RRR. S1 S2 no pedal edema Chest (Breasts): Chest: normal inspection of chest , no tenderness on palpation Gastrointestinal (Abdomen): Abdomen is not distended, soft, non-tender to palpation, no guarding, no palpable hepatosplenomegaly, normal bowel sounds Musculoskeletal: No cyanosis or clubbing, all extremities motor strength 5/5 Genitourinary: No CVA tenderness Skin: No rash noted on gross inspection, No ulcers noted Neurologic: Alert and oriented x 3, No focal weakness, sensation grossly intact Psychiatric: Euthymic affect, no depressed affect Lymphatic: No cervical lymphadenopathy Results & Data Vital Signs (Past 12 Hours) Vital Signs Temp Pulse Pulse Resp BP BP Pulse Ox 09/29/19 06:47 36.3 C L 96 H 16 173/76 H 98 09/29/19 06:15 90 33 H 133/82 96 09/29/19 06:00 89 28 H 134/77 97 09/29/19 05:45 90 30 H 134/85 95 09/29/19 05:30 91 H 26 H 139/89 95 09/29/19 05:15 93 H 28 H 135/82 94 09/29/19 05:00 89 19 126/80 91 09/29/19 04:45 158 H 32 H 122/86 93 09/29/19 04:44 158 H 24 122/92 09/29/19 04:34 158 H 124/91 94 09/29/19 04:30 159 H 95 09/29/19 04:22 155 H 35 H 91 09/29/19 04:19 88 L 09/29/19 04:17 88 L 09/29/19 04:06 160 H 22 117/83 97 Laboratory Results Laboratory Results - last 24 hr 09/29/19 09/29/19 09/29/19 04:33 04:33 06:40 WBC 6.98 RBC 4.06 L Hgb 12.2 Hct 36.7 L MCV 90.4 MCH 30.0 MCHC 33.2 RDW Std Deviation 45.2 RDW Coeff of Yohannes 13.7 Plt Count 211 MPV 10.9 H Immature Gran % (Auto) 0.3 Neut % (Auto) 66.0 Lymph % (Auto) 25.6 Gentry % (Auto) 7.6 Eos % (Auto) 0.4 Baso % (Auto) 0.1 Immature Gran # (Auto) 0.02 Neut # (Auto) 4.60 Lymph # (Auto) 1.79 Gentry # (Auto) 0.53 Eos # (Auto) 0.03 Baso # (Auto) 0.01 PT INR APTT PTT Ratio Sodium 137 Potassium 3.8 Chloride 104 Carbon Dioxide 24 Anion Gap 9.0 BUN 21 H Creatinine 1.08 Est Cr Clr Drug Dosing 35.3 Est GFR ( Amer) 53.8 Est GFR (Non-Af Amer) 46.4 BUN/Creatinine Ratio 19.7 Glucose 256 H POC Glucose Estimat Average Glucose Hemoglobin A1c Calcium 8.2 L Magnesium Total Bilirubin 0.8 AST 82 H ALT 81 H Alkaline Phosphatase 75 Troponin I 1.990 H* Total Protein 6.7 Albumin 3.5 Globulin 3.2 Albumin/Globulin Ratio 1.1 Lipase 89 Procalcitonin Nasal Screen MRSA (PCR) Negative 09/29/19 09/29/19 09/29/19 08:22 08:22 08:26 WBC RBC Hgb Hct MCV MCH MCHC RDW Std Deviation RDW Coeff of Yohannes Plt Count MPV Immature Gran % (Auto) Neut % (Auto) Lymph % (Auto) Gentry % (Auto) Eos % (Auto) Baso % (Auto) Immature Gran # (Auto) Neut # (Auto) Lymph # (Auto) Gentry # (Auto) Eos # (Auto) Baso # (Auto) PT 11.2 INR 1.1 APTT 24.9 PTT Ratio 0.9 Sodium Potassium Chloride Carbon Dioxide Anion Gap BUN Creatinine Est Cr Clr Drug Dosing Est GFR ( Amer) Est GFR (Non-Af Amer) BUN/Creatinine Ratio Glucose POC Glucose Estimat Average Glucose 177 Hemoglobin A1c 7.8 H Calcium Magnesium Total Bilirubin AST ALT Alkaline Phosphatase Troponin I Total Protein Albumin Globulin Albumin/Globulin Ratio Lipase Procalcitonin < 0.05 Nasal Screen MRSA (PCR) 09/29/19 09/29/19 09/29/19 08:26 09:00 09:03 WBC RBC Hgb Hct MCV MCH MCHC RDW Std Deviation RDW Coeff of Yohannes Plt Count MPV Immature Gran % (Auto) Neut % (Auto) Lymph % (Auto) Gentry % (Auto) Eos % (Auto) Baso % (Auto) Immature Gran # (Auto) Neut # (Auto) Lymph # (Auto) Gentry # (Auto) Eos # (Auto) Baso # (Auto) PT INR APTT PTT Ratio Sodium Potassium Chloride Carbon Dioxide Anion Gap BUN Creatinine Est Cr Clr Drug Dosing Est GFR ( Amer) Est GFR (Non-Af Amer) BUN/Creatinine Ratio Glucose POC Glucose 240 H Estimat Average Glucose Hemoglobin A1c Calcium Magnesium 1.3 L Total Bilirubin AST ALT Alkaline Phosphatase Troponin I Total Protein Albumin Globulin Albumin/Globulin Ratio Lipase Procalcitonin Nasal Screen MRSA (PCR) Pending 09/29/19 10:06 WBC RBC Hgb Hct MCV MCH MCHC RDW Std Deviation RDW Coeff of Yohannes Plt Count MPV Immature Gran % (Auto) Neut % (Auto) Lymph % (Auto) Gentry % (Auto) Eos % (Auto) Baso % (Auto) Immature Gran # (Auto) Neut # (Auto) Lymph # (Auto) Gentry # (Auto) Eos # (Auto) Baso # (Auto) PT INR APTT PTT Ratio Sodium Potassium Chloride Carbon Dioxide Anion Gap BUN Creatinine Est Cr Clr Drug Dosing Est GFR ( Amer) Est GFR (Non-Af Amer) BUN/Creatinine Ratio Glucose POC Glucose Estimat Average Glucose Hemoglobin A1c Calcium Magnesium Total Bilirubin AST ALT Alkaline Phosphatase Troponin I 4.750 H* Total Protein Albumin Globulin Albumin/Globulin Ratio Lipase Procalcitonin Nasal Screen MRSA (PCR) Diagnostic Findings Chest Xray 1. Right basilar infiltrate compatible with pneumonia. Underlying lesion not excluded. This should be followed to resolution. 2. Associated small right pleural effusion. 3. Cardiomegaly. No significant evidence of congestive change.
[2019-09-29] MEDS: METOPROLOL TARTRATE 25 MG TAB PO SCH ×3 (10:12→21:13)
[2019-09-29] MEDS ORDERED: INSULIN GLARGINE SOLOSTAR 100 UNITS/ML 3 ML PEN SC ONE (10:15)
[2019-09-29 11:22] LABS: Estimated Average Glucose 177 mg/dl; Hemoglobin A1C 7.8 % (4.5-5.6)
[2019-09-29] MEDS: AMIODARONE / D5W 360 MG/200 ML BAG IV SCH (11:27)
--- NOTE | 2019-09-29 13:35 | Cardiology Consultation ---
Date of Consultation September 29, 2019 Assessment & Plan (1) Wide-complex tachycardia: Patient was in wide-complex tachycardia upon presentation but on further review it appears that she is underlying bifascicular block and this was in fact sustained supraventricular tachycardia with underlying bifascicular block. It is unclear the duration of this arrhythmia given the fact that she is been having nonspecific symptoms for 2 weeks now. She is feeling better now that she is in normal sinus rhythm. Given the extent of her cardiomyopathy and mitral regurgitation is not surprising that she would go into supraventricular tachycardia. She will complete 24 hours of amiodarone and then will be discontinued. She has been started on metoprolol tartrate for arrhythmia suppression and they will be changed to succinate in the a.m. Continue to monitor on telemetry No role for anticoagulation at this time given the fact that the arrhythmia did not appear to be atrial fibrillation or flutter (2) Cardiomyopathy: Unclear etiology No previous echocardiograms. The patient and her family were counseled on the differential diagnosis of her cardiomyopathy including possible ischemia, valvular disease or other nonischemic possibilities We have discussed the work-up including possible cardiac catheterization along with the risks and benefits of this. They were unsure at this time if would wish to proceed with a catheterization after explained that her moreno do appear thinned and appears that her myocardium is scarred along with the risks that go along with cardiac catheterization on her in a 4-year-old woman. We will proceed with goal-directed medical therapy for her cardiomyopathy at this time. Her metoprolol be switched to succinate in the a.m. and would like to see how she tolerates it for 24 hours Ideally I would also like to start her on Entresto prior to discharge given that most recent cardiac literature suggests benefit of initiation during initial hospital stay. We will continue lisinopril for now She does not examine his volume overloaded so no loop diuretics are necessary at this time It is okay to transfer to telemetry from a cardiac standpoint (3) Diabetes: (4) Depression: (5) Abdominal pain: History of Present Illness Reason for Consultation: Wide-complex tachycardia Requesting Physician: Dr. Johnston Attending Physician: Rand Johnston MD History of Present Illness It was my pleasure to see Mrs. Pritchett in consultation today September 29, 2019. She is a very pleasant 84-year-old woman who is never been seen by cardiology previously. She was into [facility] with complaints of abdominal pain. She states that this 4 started approximately 2 weeks ago. She first noticed that when she was outside raking leaves and she developed a pressure sensation across her upper abdomen that seem to radiate up into her left arm. When this occurred she became somewhat short of breath but does not remember having any other associated symptoms. After about half hour the discomfort resolved. She is had waxing and waning symptoms up until 09/28 when her daughter dropped into visit her and brought her into the emergency room after the patient states that she had another episode of chest pain. Again the patient did not experience any palpitations, lightheadedness or dizziness. Upon arrival she was found to be in a wide-complex tachycardia possibly ventricular tachycardia but she was hemodynamically stable and she was bolused with IV amiodarone with successful conversion to normal sinus rhythm. Currently she is resting comfortably without complaint at rest. Her son and daughter were also present during the interview and subsequent reevaluation to update on the echocardiogram findings. Allergies Allergy/AdvReac Type Severity Reaction Status Date / Time amoxicillin Allergy Unknown UNKNOWN Verified 09/29/19 05:41 Home Medications Home Medications Medication Instructions Recorded Confirmed Type aspirin 81 mg PO DAILY 04/15/19 09/29/19 History escitalopram oxalate 20 mg PO DAILY 04/15/19 09/29/19 History esomeprazole magnesium 40 mg PO DAILY 04/15/19 09/29/19 History lisinopril 5 mg PO DAILY 04/15/19 09/29/19 History metformin 1,000 mg PO BID 04/15/19 09/29/19 History simvastatin 40 mg PO DAILY 04/15/19 09/29/19 History sitagliptin [Januvia] 100 mg PO DAILY 04/15/19 09/29/19 History cyanocobalamin (vitamin B-12) 1,000 mcg PO 3XWK 09/29/19 09/29/19 History [Vitamin B-12] Patient History Medical History Diabetes (Chronic) Social History Preferred Language: Marshallese Communication Ability: Effective Hair Dresser Required: No Current Living Situation: Alone Other Information That Helps Us Care for You: No Feels Safe at Home: Yes Safety Concerns: Feels Safe At This Time Smoking Status: Never smoker Hx Alcohol Use: No Hx Substance Use: No Review of Systems Review of Systems: All systems reviewed & are unremarkable except as noted in HPI & below Physical Exam Physical Exam: General: Awake, alert and oriented x 3. Somewhat confused. No acute distress. Very hard of hearing HEENT: Normocephalic, atraumatic. Pupils equal, round and reactive to light and accommodation. Extraocular muscles are intact. Anicteric sclera. Moist mucous membranes. Neck: No JVD. No bruit. Cardiovascular: Regular. Positive S-4. Normal S-1 and S-2. No S-3. 3/6 holosystolic ejection murmur, left sternal border, mid-clavicular line with radiation to the axilla. No rubs. Pulmonary: Clear to auscultation bilaterally. No rales, rhonchi, or wheezing. Abdomen: Bowel sounds x 4, soft. No rebound, guarding or tenderness. No organomegaly. Extremities: No clubbing, cyanosis or edema. +2 pedal pulses bilaterally. Skin: Warm and dry. Results & Data Vital Signs (Past 12 Hours) Vital Signs Temp Pulse Pulse Resp BP BP Pulse Ox 09/29/19 11:46 36.4 C L 75 26 H 110/74 96 09/29/19 10:00 93 H 28 H 100 09/29/19 09:46 91 H 28 H 145/96 H 95 09/29/19 08:46 92 H 35 H 133/86 94 09/29/19 08:00 36.4 C L 91 H 26 H 95 09/29/19 07:45 96 H 32 H 140/87 09/29/19 06:47 36.3 C L 96 H 16 173/76 H 98 09/29/19 06:15 90 33 H 133/82 96 09/29/19 06:00 89 28 H 134/77 97 09/29/19 05:45 90 30 H 134/85 95 09/29/19 05:30 91 H 26 H 139/89 95 09/29/19 05:15 93 H 28 H 135/82 94 09/29/19 05:00 89 19 126/80 91 09/29/19 04:45 158 H 32 H 122/86 93 09/29/19 04:44 158 H 24 122/92 12/26/19 04:34 158 H 124/91 94 09/29/19 04:30 159 H 95 09/29/19 04:22 155 H 35 H 91 09/29/19 04:19 88 L 09/29/19 04:17 88 L 09/29/19 04:06 160 H 22 117/83 97 Laboratory Results Laboratory Results - last 24 hr 09/29/19 09/29/19 09/29/19 04:33 04:33 06:40 WBC 6.98 RBC 4.06 L Hgb 12.2 Hct 36.7 L MCV 90.4 MCH 30.0 MCHC 33.2 RDW Std Deviation 45.2 RDW Coeff of Yohannes 13.7 Plt Count 211 MPV 10.9 H Immature Gran % (Auto) 0.3 Neut % (Auto) 66.0 Lymph % (Auto) 25.6 [place] % (Auto) 7.6 Eos % (Auto) 0.4 Baso % (Auto) 0.1 Immature Gran # (Auto) 0.02 Neut # (Auto) 4.60 Lymph # (Auto) 1.79 [place] # (Auto) 0.53 Eos # (Auto) 0.03 Baso # (Auto) 0.01 PT INR APTT PTT Ratio Sodium 137 Potassium 3.8 Chloride 104 Carbon Dioxide 24 Anion Gap 9.0 BUN 21 H Creatinine 1.08 Est Cr Clr Drug Dosing 35.3 Est GFR ( Amer) 53.8 Est GFR (Non-Af Amer) 46.4 BUN/Creatinine Ratio 19.7 Glucose 256 H POC Glucose Estimat Average Glucose Hemoglobin A1c Calcium 8.2 L Magnesium Total Bilirubin 0.8 AST 82 H ALT 81 H Alkaline Phosphatase 75 Troponin I 1.990 H* Total Protein 6.7 Albumin 3.5 Globulin 3.2 Albumin/Globulin Ratio 1.1 Lipase 89 Procalcitonin Nasal Screen MRSA (PCR) Negative 09/29/19 09/29/19 09/29/19 08:22 08:22 08:26 WBC RBC Hgb Hct MCV MCH MCHC RDW Std Deviation RDW Coeff of Yohannes Plt Count MPV Immature Gran % (Auto) Neut % (Auto) Lymph % (Auto) [place] % (Auto) Eos % (Auto) Baso % (Auto) Immature Gran # (Auto) Neut # (Auto) Lymph # (Auto) [place] # (Auto) Eos # (Auto) Baso # (Auto) PT 11.2 INR 1.1 APTT 24.9 PTT Ratio 0.9 Sodium Potassium Chloride Carbon Dioxide Anion Gap BUN Creatinine Est Cr Clr Drug Dosing Est GFR ( Amer) Est GFR (Non-Af Amer) BUN/Creatinine Ratio Glucose POC Glucose Estimat Average Glucose 177 Hemoglobin A1c 7.8 H Calcium Magnesium Total Bilirubin AST ALT Alkaline Phosphatase Troponin I Total Protein Albumin Globulin Albumin/Globulin Ratio Lipase Procalcitonin < 0.05 Nasal Screen MRSA (PCR) 09/29/19 09/29/19 09/29/19 08:26 09:00 09:03 WBC RBC Hgb Hct MCV MCH MCHC RDW Std Deviation RDW Coeff of Yohannes Plt Count MPV Immature Gran % (Auto) Neut % (Auto) Lymph % (Auto) [place] % (Auto) Eos % (Auto) Baso % (Auto) Immature Gran # (Auto) Neut # (Auto) Lymph # (Auto) [place] # (Auto) Eos # (Auto) Baso # (Auto) PT INR APTT PTT Ratio Sodium Potassium Chloride Carbon Dioxide Anion Gap BUN Creatinine Est Cr Clr Drug Dosing Est GFR ( Amer) Est GFR (Non-Af Amer) BUN/Creatinine Ratio Glucose POC Glucose 240 H Estimat Average Glucose Hemoglobin A1c Calcium Magnesium 1.3 L Total Bilirubin AST ALT Alkaline Phosphatase Troponin I Total Protein Albumin Globulin Albumin/Globulin Ratio Lipase Procalcitonin Nasal Screen MRSA (PCR) Negative 09/29/19 09/29/19 10:06 13:09 WBC RBC Hgb Hct MCV MCH MCHC RDW Std Deviation RDW Coeff of Yohannes Plt Count MPV Immature Gran % (Auto) Neut % (Auto) Lymph % (Auto) [place] % (Auto) Eos % (Auto) Baso % (Auto) Immature Gran # (Auto) Neut # (Auto) Lymph # (Auto) [place] # (Auto) Eos # (Auto) Baso # (Auto) PT INR APTT PTT Ratio Sodium Potassium Chloride Carbon Dioxide Anion Gap BUN Creatinine Est Cr Clr Drug Dosing Est GFR ( Amer) Est GFR (Non-Af Amer) BUN/Creatinine Ratio Glucose POC Glucose 205 H Estimat Average Glucose Hemoglobin A1c Calcium Magnesium Total Bilirubin AST ALT Alkaline Phosphatase Troponin I 4.750 H* Total Protein Albumin Globulin Albumin/Globulin Ratio Lipase Procalcitonin Nasal Screen MRSA (PCR) Diagnostic Findings Transthoracic echocardiogram: Mildly dilated LV chamber size with normal wall thickness. Severely reduced LV systolic function, EF 25-30%. Severe hypokinesis to akinesis of the anterior, anterolateral, inferolateral and inferior moreno. Aortic valve sclerosis moderate, without significant aortic valvular stenosis. There is severe mitral annular calcification. There is moderate to severe mitral regurgitation. Moderate to severe tricuspid regurgitation. Severe left atrial enlargement. No previous study available for comparison. Medications Administered Current Inpatient Medications Aspirin (Ecotrin Ectab) 81 mg PO DAILY [facility] Stop: 10/30/19 08:59 Dextrose (Dextrose 50%) 25 - 50 ml IV UD PRN; Protocol PRN Reason: Hypoglycemia Protocol Stop: 10/29/19 07:14 Doxycycline Hyclate (Vibramycin) 100 mg PO BID [facility] Stop: 10/06/19 08:59 Last Admin: 09/29/19 08:53 Dose: 100 mg Documented by: Escitalopram Oxalate (Lexapro Tab) 20 mg PO DAILY [facility] Stop: 10/29/19 08:59 Last Admin: 09/29/19 08:57 Dose: 20 mg Documented by: Glucagon (Glucagen) 1 mg IM UD PRN; Protocol PRN Reason: Hypoglycemia Protocol Stop: 10/29/19 07:14 Glucose (Glucose 40%) 15 - 30 gm PO UD PRN; Protocol PRN Reason: Hypoglycemia Protocol Stop: 10/29/19 07:14 Glucose (Dex4 Glucose) 4 - 8 tabs PO UD PRN; Protocol PRN Reason: Hypoglycemia Protocol Stop: 10/29/19 07:14 Heparin Sodium/Dextrose (Heparin Sodium/Dextrose) 25,000 units in 500 mls @ 21 mls/hr IV .[id number] [facility]; Protocol Stop: 10/29/19 07:09 Last Admin: 09/29/19 08:52 Dose: 1,050 units/hr, 21 mls/hr Documented by: Amiodarone HCl/Dextrose (Nexterone / D5w) 360 mg in 200 mls @ 16.667 mls/hr IV .Q12H [facility] Stop: 10/29/19 09:29 Last Admin: 09/29/19 11:27 Dose: 0.5 mg/min, 16.7 mls/hr Documented by: Insulin Aspart (Novolog Flexpen) 0 units SC Q6 [facility] Stop: 10/29/19 07:29 Last Admin: 09/29/19 09:06 Dose: 2 units Documented by: Insulin Glargine (Lantus Solostar Pen) 7 units SC BID [facility] Stop: 10/29/19 20:59 Lisinopril (Zestril) 5 mg PO DAILY [facility] Stop: 10/29/19 08:59 Last Admin: 09/29/19 08:57 Dose: 5 mg Documented by: Metoprolol Succinate (Toprol Xl) 25 mg PO QAM [facility] Stop: 10/30/19 08:59 Metoprolol Tartrate (Lopressor) 12.5 mg PO Q6H [facility] Stop: 10/29/19 23:55 Last Admin: 09/29/19 10:12 Dose: Not Given Documented by: Miscellaneous (Icu Protocol For Hyperglycemia) 1 ea N/A PRN PRN; Protocol PRN Reason: Hyperglycemia Protocol Stop: 10/01/19 07:09 Miscellaneous (Carbohydrates For Hypoglycemia) 15 - 30 gm PO UD PRN PRN Reason: Hypoglycemia Treatment Stop: 10/29/19 07:14 Nitroglycerin (Nitro-Bid 2%) 0.5 inch EXT Q6H [facility] Stop: 10/29/19 07:09 Last Admin: 09/29/19 08:57 Dose: 0.5 inch Documented by: Pantoprazole Sodium (Protonix) 40 mg PO DAILY [facility]; Protocol Stop: 10/29/19 08:59 Last Admin: 09/29/19 08:59 Dose: 40 mg Documented by: Simvastatin (Zocor) 40 mg PO DAILY [facility] Stop: 10/29/19 08:59 Last Admin: 09/29/19 08:57 Dose: 40 mg Documented by:
[2019-09-29] MEDS ORDERED: Nursing to Pharmacy Communication ONE (13:52)
--- NOTE | 2019-09-29 14:40 | Billing Data ---
Date of Service September 29, 2019 Coding Level of Care Code Critical Care 1st 30-74 mins Time Spent (min) 90
--- NOTE | 2019-09-29 14:40 | Communication Note ---
Date of Service: September 29, 2019 Critical CARE addendum: POCUS: Heart: Decreased ejection fraction, akinesia of anterior lateral wall, RVOT normal in size, mild pericardial effusion. IVC greater than 1.5 cm nonvariable. Lungs: Bilateral pleural effusion, atelectasis of the right lower lobe. Abdomen: No fluid appreciated in the abdomen. Please look at the images separately.
[2019-09-29] MEDS: FUROSEMIDE 40 MG TAB PO SCH (15:43)
[2019-09-29] MEDS: CLOPIDOGREL BISULFATE 75 MG TAB PO SCH (15:44)
[2019-09-29 15:53] LABS: Partial Thromboplastin Ratio 1.8
[2019-09-29 16:14] LABS: Influenza A virus by PCR Neg for Influ A (Neg); Influenza B virus by PCR Neg for Influ B (Neg)
[2019-09-29 16:21] LABS: Partial Thromboplastin Time 47.6 Seconds (21.0-31.0)
[2019-09-29] MEDS: NITROGLYCERIN SL 0.4 MG/TAB TAB SL PRN ×2 (16:45→16:59)
[2019-09-29] MEDS: ACETAMINOPHEN 325 MG TAB PO PRN (16:57)
[2019-09-29] MEDS: INSULIN GLARGINE SOLOSTAR 100 UNITS/ML 3 ML PEN SC SCH (21:12)
[2019-09-30] MEDS: AMIODARONE / D5W 360 MG/200 ML BAG IV SCH ×2 (00:41→19:30)
[2019-09-30] MEDS ORDERED: FUROSEMIDE 20 MG in SYRINGE 0 ML IV ONE (01:22)
--- NOTE | 2019-09-30 06:32 | XRay Report ---
XR chest 1V portable CLINICAL HISTORY: Shortness of breath. Pulmonary vascular congestion. COMPARISON STUDY: 09/29/2019 FINDINGS: The heart is at the upper limits of normal in size. There are extensive aortic calcificatio ns. There is radiographic evidence of congestive failure/fluid overload with bilateral pleural effusi ons. There are associated basilar airspace opacities, likely representing atelectasis or focal edema although superimposed pneumonia cannot be excluded. IMPRESSION: 1. Radiographic evidence of congestive failure/fluid overload with bilateral pleural effusions and as sociated basilar airspace opacities. As stated above a superimposed pneumonia cannot be excluded. ACT 112: Negative or not required by law. Electronically signed by: Chong Mar M.D. 09/30/2019 6:31 AM
[2019-09-30] MEDS: INSULIN ASPART 100 UNITS/ML 3 ML PEN SC SCH ×4 (07:48→21:11)
[2019-09-30] MEDS: HEPARIN SODIUM/DEXTROSE 25,000 UNITS/500 ML BAG IV SCH (07:50)
[2019-09-30] MEDS: INSULIN GLARGINE SOLOSTAR 100 UNITS/ML 3 ML PEN SC SCH ×2 (07:51→21:10)
[2019-09-30 07:54] LABS: Eosinophils # (auto) 0.02 K/uL (0-0.5); Eosinophils % (auto) 0.4 %; Hematocrit (blood only) 36.5 % (37-47); Immature Granulocytes # (auto) 0.01 K/uL (0.00-0.02); Immature Granulocytes % (auto) 0.2 %; Lymphocytes # (auto) 1.25 K/uL (1.2-3.4); Lymphocytes % (auto) 22.6 %; Mean Corpuscular Hemoglobin 29.8 pg (25-34); Mean Corpuscular Hgb Conc 32.9 g/dL (32-36); Mean Corpuscular Volume 90.6 fL (80-100); Mean Platelet Volume 10.9 fL (7.4-10.4); Monocytes # (auto) 0.28 K/uL (0.11-0.59); Monocytes % (auto) 5.1 %; Neutrophils # (auto) 3.98 K/uL (1.4-6.5); Neutrophils % (auto) 71.7 %; Platelet Count 199 K/uL (130-400); RDW Coefficient of Variation 13.8 % (11.5-14.5); Red Blood Count 4.03 M/uL (4.2-5.4); White Blood Count 5.54 K/uL (4.8-10.8)
[2019-09-30] MEDS: FUROSEMIDE 40 MG TAB PO SCH (08:00)
[2019-09-30] MEDS: METOPROLOL SUCC 25MG EXT REL TAB PO SCH (08:00)
[2019-09-30] MEDS: SIMVASTATIN 40 MG TAB PO SCH (08:00)
[2019-09-30] MEDS: lisinopriL 5 MG TAB PO SCH (08:00)
[2019-09-30] MEDS: PANTOprazole 40 MG TAB PO SCH (08:00)
[2019-09-30] MEDS: ASPIRIN 81 MG ECTAB PO SCH (08:00)
[2019-09-30] MEDS: DOXYCYCLINE HYCLATE 100 MG CAP PO SCH ×2 (08:00→21:09)
[2019-09-30] MEDS: CLOPIDOGREL BISULFATE 75 MG TAB PO SCH (08:00)
[2019-09-30 08:15] LABS: Partial Thromboplastin Ratio 3.3
[2019-09-30 08:25] LABS: Partial Thromboplastin Time 89.4 Seconds (21.0-31.0)
[2019-09-30 08:27] LABS: BUN Creatinine Ratio 20.2 (10-20); Calcium 8.6 mg/dl (8.5-10.1); Creatinine Clr Calc Pharmacy 35.2 ml/min; Est GFR (African American) 59.8; Est GFR (Non-African American) 51.6; Magnesium 1.4 mg/dl (1.8-2.4); Potassium 3.3 mmol/L (3.5-5.1)
--- NOTE | 2019-09-30 12:49 | Hospitalist Progress Note ---
Date of Service September 30, 2019 Assessment & Plan (1) Cardiomyopathy: (2) Wide-complex tachycardia: (3) Chest pain: (4) Non-ST elevation NV (NSTEMI): Chest pain, elevated troponin (Initial trop was 1.99) peaked at 6.5 EKG showed wide complex tachycardia. 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 Was on amiodarone drip for 24 hoursdiscontinued today QTc 534 on admission. Avoid QT prolonging medications Was on heparin drip for the past 24 hours, discontinued today Echo showed severe left ventricular systolic dysfunction with EF of 25 to 30%, severe hypokinesis to akinesis of anterior, anterolateral, inferolateral and inferior moreno. Aortic valve sclerosis moderate. Severe left atrial enlargement. Moderate to severe mitral regurgitation. Moderate to severe tricuspid regurgitation Coin Machine Mechanic discussed with patient and family yesterday and he opted for medical management. We will continue aspirin and Plavix. Started on metoprolol succinate this morning Plan to start on Entresto per cardiology's recommendation Continue IV diuresis for now and monitor electrolytes. Replete as needed. Chest x-ray showed right basilar infiltrate Started on doxycycline for right lower lobe pneumonia due to reported allergy to penicillins Palliative consult appreciated (5) Diabetes: DM type II Hemoglobin A1c 7.8 Hold metformin and Januvia home medication Monitor with Lantus and sliding scale for now. Monitor blood glucose. (6) Depression: Stable Home citalopram on hold for now. (7) Hypertension: Stable. Continue metoprolol succinate Plan to start entresto as above Monitor blood pressure (8) DVT prophylaxis: heparin sq Subjective Patient seen and examined. Patient and daughters and son with grandkids were in the room. Patient had shortness of breath overnight and received IV Lasix. Reports she is feeling better this morning. Denies any chest pain, dizziness, palpitations Denied any abdominal pain, nausea, vomiting. Still has occasional arm pain which resolves with Tylenol Review of Systems Review of Systems: All systems reviewed and unremarkable except for mentioned above. Physical Exam Physical Exam: General: Elderly woman in no distress Eyes: PERRL, conjunctivae normal, EOM intact bilaterally ENMT: External ear and nose normal, oropharynx normal Neck: Normal visual inspection, no tracheal deviation, no swelling noted Respiratory: Normal respiratory effort, no respiratory distress, on nasal cannula, mild bibasilar crackles Cardiovascular: Pulse is RRR. S1 S2, Systolic murmur. no pedal edema Gastrointestinal (Abdomen): Abdomen is not distended, soft, non-tender to palpation, no guarding, no palpable hepatosplenomegaly, normal bowel sounds Neurologic: Alert and oriented x 3, No focal weakness, sensation grossly intact Psychiatric: Euthymic affect, no depressed affect Results & Data Vital Signs (Past 12 Hours) Vital Signs Temp Pulse Resp BP BP Pulse Ox 09/30/19 08:00 36.8 C 77 156/88 H 94 09/30/19 03:30 36.7 C 77 20 142/84 H 93 Laboratory Results Abnormal lab results 09/29/19 09/29/19 09/30/19 Range/Units 20:36 22:05 07:20 RBC 4.03 L (4.2-5.4) M/uL Hct 36.5 L (37-47) % MPV 10.9 H (7.4-10.4) fL APTT (21.0-31.0) Seconds Potassium (3.5-5.1) mmol/L BUN (7-18) mg/dl BUN/Creatinine Ratio (10-20) Glucose (70-99) mg/dl POC Glucose 194 H (70-99) Magnesium (1.8-2.4) mg/dl Troponin I 5.940 H* (0-0.045) ng/ml 09/30/19 09/30/19 09/30/19 Range/Units 07:20 07:20 07:45 RBC (4.2-5.4) M/uL Hct (37-47) % MPV (7.4-10.4) fL APTT 89.4 H* (21.0-31.0) Seconds Potassium 3.3 L (3.5-5.1) mmol/L BUN 20 H (7-18) mg/dl BUN/Creatinine Ratio 20.2 H (10-20) Glucose 211 H (70-99) mg/dl POC Glucose 191 H (70-99) Magnesium 1.4 L (1.8-2.4) mg/dl Troponin I (0-0.045) ng/ml 09/30/19 Range/Units 11:59 RBC (4.2-5.4) M/uL Hct (37-47) % MPV (7.4-10.4) fL APTT (21.0-31.0) Seconds Potassium (3.5-5.1) mmol/L BUN (7-18) mg/dl BUN/Creatinine Ratio (10-20) Glucose (70-99) mg/dl POC Glucose 187 H (70-99) Magnesium (1.8-2.4) mg/dl Troponin I (0-0.045) ng/ml
[2019-09-30] MEDS: SPIRONOLACTONE 25 MG TAB PO SCH (12:59)
--- NOTE | 2019-09-30 15:19 | Palliative Care Consultation ---
Date of Consultation September 30, 2019 Assessment & Plan (1) Goals of care, counseling/discussion: -84 year old female patient with PMH diabetes, depression with anxiety, hyperlipidemia, and hearing impairment, presented to the hospital several days ago with chest pain. She was found to be in wide-complex tachycardia in ED, but turns out to be SVT. Troponin elevated and peaked at 6.5. Patient has no known history of heart disease, but unfortunately her echocardiogram showed EF 25% with severe mitral regurg and severe hypokinesis/akinesis of several moreno. Patient and family opted for medical management. Patient is a full code, but difficult to know what she fully understands per the photonics technician. Palliative care is consulted to discuss goals of care. -Met with patient and her eldest daughter/POA, Halie Tate. Patient is awake, pleasant and oriented but is extremely [place] and does not have her hearing aids present. -Patient understands that she has an extremely weakened heart, but she has somewhat limited insight. Her daughter Halie is well-aware of the medical situation and we discussed it further. -Patient lives alone, but Halie lives "[place]" and is with patient every day. Patient does have some mild forgetfulness-- forgets her evening meds occasionally. Otherwise, patient is still pretty independent, so this is quite new for them. -Patient has total of six children. Halie is the oldest and is the POA. We talked about goals of care and code status. Patient has a living will that indicates when end-stage, she would not want any heroic measures. However, patient currently made the decision to be full code. Having said that, Halie states that she doesn't think patient fully understood what was being asked. -Plan is for Halie to continue this discussion with the patient over the weekend and we will reconvene on Thursday to discuss further about goals and code status. Halie hopes some of the patient's other children can be present. (2) Cardiomyopathy: (3) Wide-complex tachycardia: (4) Ventricular tachycardia: History of Present Illness Attending Physician: Rand Johnston MD History of Present Illness This 84 year old female patient with PMH diabetes, depression with anxiety, hyperlipidemia, and hearing impairment, presented to the hospital several days ago with chest pain. She was found to be in wide-complex tachycardia in ED. Troponin elevated and peaked at 6.5. Patient has no known history of heart disease, but unfortunately her echocardiogram showed EF 25% with severe mitral regurg and severe hypokinesis/akinesis of several moreno. Patient and family opted for medical management. Patient is a full code, but difficult to know what she fully understands per the photonics technician. Palliative care is consulted to discuss goals of care. Thank you kindly for this consult. Palliative care team will follow as needed. Allergies Allergy/AdvReac Type Severity Reaction Status Date / Time amoxicillin Allergy Unknown UNKNOWN Verified 09/29/19 05:41 Home Medications Home Medications Medication Instructions Recorded Confirmed Type aspirin 81 mg PO DAILY 04/15/19 09/29/19 History escitalopram oxalate 20 mg PO DAILY 04/15/19 09/29/19 History esomeprazole magnesium 40 mg PO DAILY 04/15/19 09/29/19 History lisinopril 5 mg PO DAILY 04/15/19 09/29/19 History metformin 1,000 mg PO BID 04/15/19 09/29/19 History simvastatin 40 mg PO DAILY 04/15/19 09/29/19 History sitagliptin [Januvia] 100 mg PO DAILY 04/15/19 09/29/19 History cyanocobalamin (vitamin B-12) 1,000 mcg PO 3XWK 09/29/19 09/29/19 History [Vitamin B-12] Patient History Medical History Diabetes (Chronic) Social History Preferred Language: Occitan Communication Ability: Effective Optimization Analyst Required: No Current Living Situation: Alone Other Information That Helps Us Care for You: No Feels Safe at Home: Yes Safety Concerns: Feels Safe At This Time Smoking Status: Never smoker Hx Alcohol Use: No Hx Substance Use: No Review of Systems Review of Systems: Const: No weakness ENMT: No dysphagia. Extremely [place] Resp: No SOB, no cough Cardio: No chest pain, no edema GI: No abdominal pain, no N/V MS: No musculoskeletal pain Neuro: No confusion Psych: No anxiety, no depression Physical Exam Constitutional: well developed and well nourished; no acute distress elderly ENMT: external ear and nose normal, oropharynx normal Ears: + hearing impairment Respiratory: normal respiratory effort, lungs clear to auscultation Auscultation: + diminished lung sounds Cardiovascular: RRR, no murmur, no edema Gastrointestinal (Abdomen): Inspection/Auscultation: normal bowel sounds Percussion/Palpation: abdomen soft; abdomen nontender Neurologic: moves all extremities and awake; not confused Psychiatric: Orientation: alert and oriented x 3 Insight: + limited insight (conversation difficult due to extreme [place]) Results & Data Vital Signs (Past 12 Hours) Vital Signs Temp Pulse Resp BP BP Pulse Ox 09/30/19 12:00 36.4 C L 80 20 131/72 92 09/30/19 08:00 36.8 C 77 156/88 H 94 09/30/19 03:30 36.7 C 77 20 142/84 H 93 Time Spent Midlevel 70 minutes with >50% of the time spent at bedside with patient and family discussing condition and GOC.
--- NOTE | 2019-09-30 16:20 | Cardiology Progress Note ---
Date of Service September 30, 2019 Assessment & Plan (1) Wide-complex tachycardia: Patient was in wide-complex tachycardia upon presentation but on further review it appears that she is underlying bifascicular block and this was in fact sustained supraventricular tachycardia with underlying bifascicular block. It is unclear the duration of this arrhythmia given the fact that she is been having nonspecific symptoms for 2 weeks now. She is feeling better now that she is in normal sinus rhythm. Given the extent of her cardiomyopathy and mitral regurgitation is not surprising that she would go into supraventricular tachycardia. She will complete 24 hours of amiodarone and it will now be discontinued along with her heparin. She was transitioned to metoprolol succinate this a.m. and tolerating well hemodynamically. No role for anticoagulation at this time given the fact that the arrhythmia did not appear to be atrial fibrillation or flutter (2) Cardiomyopathy: Unclear etiology No previous echocardiograms. The patient and her family were counseled on the differential diagnosis of her cardiomyopathy including possible ischemia, valvular disease or other nonischemic possibilities We will proceed with goal-directed medical therapy for her cardiomyopathy at this time. She is now on evidence-based beta-wally and tolerating well. She has been on lisinopril as an outpatient and that will be discontinued after today. Given her severely reduced LV systolic function along with the fact she remains in normal sinus rhythm I will transition her to Entresto in the a.m. given that recent cardiac literature supports inpatient initiation to help reduce morbidity after discharge I will also start her on aldosterone antagonist today with spironolactone 12.5 mg p.o. daily She is volume overloaded at this time which is not unexpected. She is diuresing well with initial IV diuretic and I will continue her on Lasix 40 mg IV twice daily Her volume status should be followed closely Continue to monitor on telemetry (3) Diabetes: (4) Depression: (5) Abdominal pain: (6) Goals of care, counseling/discussion: The patient previously had a living will stating DNR status however she subsequently changed her mind. Given the new discovery of severe mitral regurgitation along with severe cardiomyopathy and the associated reduction in longevity I will ask our palliative care colleagues to discuss goals of care with the patient and her family so that everyone is on the same page. Subjective Patient seen and examined with 2 daughters, 1 of which is the power of staff attorney at bedside. Patient states that she was little short of breath overnight and was given IV Lasix with significant diuresis. States her breathing is now easier and otherwise feels well. She denies any chest pain, palpitations, lightheadedness, dizziness or syncope. Telemetry reviewed: Normal sinus rhythm with underlying bifascicular block, no sustained arrhythmias. Review of Systems Review of Systems: All systems reviewed & are unremarkable except as noted in HPI & below Physical Exam Physical Exam: General: Awake, alert and oriented x 3. No acute distress. HEENT: Normocephalic, atraumatic. Pupils equal, round and reactive to light and accommodation. Extraocular muscles are intact. Anicteric sclera. Moist mucous membranes. Neck: No JVD. No bruit. Cardiovascular: Regular. Positive S-4. Normal S-1 and S-2. No S-3. 3/6 holosystolic ejection murmur, left sternal border, mid-clavicular line with radiation to the axilla. No rubs. Pulmonary: Crackles present in the bilateral bases. No rhonchi or wheezing. Abdomen: Bowel sounds x 4, soft. No rebound, guarding or tenderness. No organomegaly. Extremities: No clubbing, cyanosis or edema. +2 pedal pulses bilaterally. Skin: Warm and dry. Results & Data Vital Signs (Past 12 Hours) Vital Signs Temp Pulse Resp BP Pulse Ox 09/30/19 12:00 36.4 C L 80 20 131/72 92 09/30/19 08:00 36.8 C 77 156/88 H 94
[2019-09-30] MEDS: FUROSEMIDE 40 MG in SYRINGE 0 ML IV SCH (17:25)
[2019-09-30] MEDS: HEPARIN SOD 5,000 UNIT/0.5 ML VIAL SQ SCH (21:09)
[2019-10-01 06:48] LABS: Basophils # (auto) 0.01 K/uL (0-0.2); Basophils % (auto) 0.2 %; Eosinophils # (auto) 0.04 K/uL (0-0.5); Eosinophils % (auto) 0.7 %; Hematocrit (blood only) 37.1 % (37-47); Hemoglobin 12.3 g/dL (12.0-16.0); Immature Granulocytes # (auto) 0.01 K/uL (0.00-0.02); Immature Granulocytes % (auto) 0.2 %; Lymphocytes # (auto) 1.51 K/uL (1.2-3.4); Lymphocytes % (auto) 26.9 %; Mean Corpuscular Hemoglobin 29.9 pg (25-34); Mean Corpuscular Hgb Conc 33.2 g/dL (32-36); Mean Corpuscular Volume 90.3 fL (80-100); Mean Platelet Volume 10.6 fL (7.4-10.4); Monocytes # (auto) 0.62 K/uL (0.11-0.59); Monocytes % (auto) 11.1 %; Neutrophils # (auto) 3.42 K/uL (1.4-6.5); Neutrophils % (auto) 60.9 %; Platelet Count 199 K/uL (130-400); RDW Coefficient of Variation 13.6 % (11.5-14.5); RDW Standard Deviation 44.4 fL (36.4-46.3); Red Blood Count 4.11 M/uL (4.2-5.4); White Blood Count 5.61 K/uL (4.8-10.8)
[2019-10-01 07:42] LABS: BUN Creatinine Ratio 22.1 (10-20); Calcium 8.9 mg/dl (8.5-10.1); Creatinine Clr Calc Pharmacy 43.6 ml/min; Est GFR (African American) 77.4; Est GFR (Non-African American) 66.8; Magnesium 1.2 mg/dl (1.8-2.4); Potassium 2.9 mmol/L (3.5-5.1)
[2019-10-01] MEDS: INSULIN GLARGINE SOLOSTAR 100 UNITS/ML 3 ML PEN SC SCH ×2 (08:02→20:20)
[2019-10-01] MEDS: INSULIN ASPART 100 UNITS/ML 3 ML PEN SC SCH ×4 (08:02→20:21)
[2019-10-01] MEDS: FUROSEMIDE 40 MG in SYRINGE 0 ML IV SCH ×2 (08:02→16:55)
[2019-10-01] MEDS: HEPARIN SOD 5,000 UNIT/0.5 ML VIAL SQ SCH ×2 (08:03→20:19)
[2019-10-01] MEDS: DOXYCYCLINE HYCLATE 100 MG CAP PO SCH (08:03)
[2019-10-01] MEDS: SPIRONOLACTONE 25 MG TAB PO SCH (08:03)
[2019-10-01] MEDS: METOPROLOL SUCC 25MG EXT REL TAB PO SCH (08:04)
[2019-10-01] MEDS: CLOPIDOGREL BISULFATE 75 MG TAB PO SCH (08:04)
[2019-10-01] MEDS: PANTOprazole 40 MG TAB PO SCH (08:04)
[2019-10-01] MEDS: ASPIRIN 81 MG ECTAB PO SCH (08:04)
[2019-10-01] MEDS: SACUBITRIL-VALSARTAN 24-26 MG TAB PO SCH ×2 (08:04→20:19)
[2019-10-01] MEDS: SIMVASTATIN 40 MG TAB PO SCH (08:05)
[2019-10-01] MEDS: ACETAMINOPHEN 325 MG TAB PO PRN ×3 (08:45→20:18)
[2019-10-01] MEDS ORDERED: POTASSIUM CHLORIDE 20 MEQ TABCR PO STA (08:55)
[2019-10-01] MEDS: POTASSIUM CHLORIDE / WTR 10 MEQ/100 ML PLCT IV SCH ×4 (09:37→14:49)
[2019-10-01] MEDS: MAGNESIUM SULFATE / D5W 1 GM/100 ML BAG IV SCH ×2 (09:39→11:17)
--- NOTE | 2019-10-01 11:46 | Cardiology Progress Note ---
Date of Service October 01, 2019 Assessment & Plan (1) Cardiomyopathy: (2) Wide-complex tachycardia: (3) Systolic heart failure, ACC/AHA stage C: (4) Mitral regurgitation: The patient is doing well. I would continue the Entresto. She is stable on the telemetry. Potentially she could be discharged tomorrow. Subjective No complaints. Visiting with her family. Tolerating Entresto. Review of Systems Review of Systems: All systems reviewed & are unremarkable except as noted in HPI & below Nothing additional to add. Physical Exam Physical Exam: General: no acute distress and stated age Head: normocephalic, no masses, lesions, tenderness or abnormalities Eyes: conjunctiva are pink and non-injected, sclera clear Neck: supple, no adenopathy, no bruits, normal jugular venous pulse, no hepatojugular reflux Chest: normal shape and normal respiratory effort Lungs: clear to auscultation and percussion Cardiac Exam: - regular rate & rhythm, no murmurs gallops or rubs - normal S1, normal S2 Pulses: 2(+) throughout Abdomen: abdomen soft, non-tender, no abnormal masses and no hepatosplenomegaly Musculoskeletal: no gait disturbance, no joint inflammation, no deforming arthritis Extremities: no edema and no cyanosis Neuro: grossly normal exam Results & Data Vital Signs (Past 12 Hours) Vital Signs Temp Pulse Pulse Resp BP BP Pulse Ox 10/01/19 08:00 94 H 10/01/19 07:08 36.7 C 77 19 146/92 H 94 10/01/19 03:28 36.5 C 77 18 153/83 H 95 09/30/19 23:44 94 H Laboratory Results Laboratory Results - last 24 hr 09/30/19 09/30/19 09/30/19 11:59 16:48 20:56 WBC RBC Hgb Hct MCV MCH MCHC RDW Std Deviation RDW Coeff of Yohannes Plt Count MPV Immature Gran % (Auto) Neut % (Auto) Lymph % (Auto) Sharp % (Auto) Eos % (Auto) Baso % (Auto) Immature Gran # (Auto) Neut # (Auto) Lymph # (Auto) [place] # (Auto) Eos # (Auto) Baso # (Auto) Sodium Potassium Chloride Carbon Dioxide Anion Gap BUN Creatinine Est Cr Clr Drug Dosing Est GFR ( Amer) Est GFR (Non-Af Amer) BUN/Creatinine Ratio Glucose POC Glucose 187 H 139 H 214 H Calcium Magnesium 10/01/19 10/01/19 10/01/19 06:16 06:16 07:22 WBC 5.61 RBC 4.11 L Hgb 12.3 Hct 37.1 MCV 90.3 MCH 29.9 MCHC 33.2 RDW Std Deviation 44.4 RDW Coeff of Yohannes 13.6 Plt Count 199 MPV 10.6 H Immature Gran % (Auto) 0.2 Neut % (Auto) 60.9 Lymph % (Auto) 26.9 Sharp % (Auto) 11.1 Eos % (Auto) 0.7 Baso % (Auto) 0.2 Immature Gran # (Auto) 0.01 Neut # (Auto) 3.42 Lymph # (Auto) 1.51 Sharp # (Auto) 0.62 H Eos # (Auto) 0.04 Baso # (Auto) 0.01 Sodium 141 Potassium 2.9 L Chloride 101 Carbon Dioxide 35 H Anion Gap 5.0 BUN 18 Creatinine 0.80 Est Cr Clr Drug Dosing 43.6 Est GFR ( Amer) 77.4 Est GFR (Non-Af Amer) 66.8 BUN/Creatinine Ratio 22.1 H Glucose 144 H POC Glucose 125 H Calcium 8.9 Magnesium 1.2 L 10/01/19 11:26 WBC RBC Hgb Hct MCV MCH MCHC RDW Std Deviation RDW Coeff of Yohannes Plt Count MPV Immature Gran % (Auto) Neut % (Auto) Lymph % (Auto) [place] % (Auto) Eos % (Auto) Baso % (Auto) Immature Gran # (Auto) Neut # (Auto) Lymph # (Auto) Sharp # (Auto) Eos # (Auto) Baso # (Auto) Sodium Potassium Chloride Carbon Dioxide Anion Gap BUN Creatinine Est Cr Clr Drug Dosing Est GFR ( Amer) Est GFR (Non-Af Amer) BUN/Creatinine Ratio Glucose POC Glucose 167 H Calcium Magnesium Medications Administered Current Inpatient Medications Acetaminophen (Tylenol) 650 mg PO Q6H PRN PRN Reason: Pain Stop: 10/29/19 16:41 Last Admin: 10/01/19 08:45 Dose: 650 mg Documented by: Aspirin (Ecotrin Ectab) 81 mg PO DAILY [facility] Stop: 10/30/19 08:59 Last Admin: 10/01/19 08:04 Dose: 81 mg Documented by: Clopidogrel Bisulfate (Plavix) 75 mg PO QAM [facility] Stop: 10/29/19 14:44 Last Admin: 10/01/19 08:04 Dose: 75 mg Documented by: Dextrose (Dextrose 50%) 25 - 50 ml IV UD PRN; Protocol PRN Reason: Hypoglycemia Protocol Stop: 10/29/19 07:14 Doxycycline Hyclate (Vibramycin) 100 mg PO BID [facility] Stop: 10/06/19 08:59 Last Admin: 10/01/19 08:03 Dose: 100 mg Documented by: Glucagon (Glucagen) 1 mg IM UD PRN; Protocol PRN Reason: Hypoglycemia Protocol Stop: 10/29/19 07:14 Glucose (Glucose 40%) 15 - 30 gm PO UD PRN; Protocol PRN Reason: Hypoglycemia Protocol Stop: 10/29/19 07:14 Glucose (Dex4 Glucose) 4 - 8 tabs PO UD PRN; Protocol PRN Reason: Hypoglycemia Protocol Stop: 10/29/19 07:14 Heparin Sodium (Porcine) (Heparin Sodium (Porcine)) 5,000 units SQ Q12 [facility] Stop: 10/30/19 20:59 Last Admin: 10/01/19 08:03 Dose: 5,000 units Documented by: Furosemide 40 mg/ Syringe 4 mls @ 4 mls/min IV BID17 [facility] Stop: 10/30/19 16:59 Last Admin: 10/01/19 08:02 Dose: 4 mls/min Documented by: Potassium Chloride (K Alon / Wtr) 10 meq in 100 mls @ 100 mls/hr IV Q1H [facility] Stop: 10/01/19 13:29 Last Admin: 10/01/19 09:37 Dose: 100 mls/hr Documented by: Insulin Aspart (Novolog Flexpen) 0 units SC ACHS [facility] Stop: 10/29/19 16:29 Last Admin: 10/01/19 08:02 Dose: 3 units Documented by: Insulin Glargine (Lantus Solostar Pen) 7 units SC BID [facility] Stop: 10/29/19 20:59 Last Admin: 10/01/19 08:02 Dose: 7 units Documented by: Metoprolol Succinate (Toprol Xl) 25 mg PO QAM [facility] Stop: 10/30/19 08:59 Last Admin: 10/01/19 08:04 Dose: 25 mg Documented by: Miscellaneous (Carbohydrates For Hypoglycemia) 15 - 30 gm PO UD PRN PRN Reason: Hypoglycemia Treatment Stop: 10/29/19 07:14 Nitroglycerin (Nitrostat) 0.4 mg SL PRN PRN PRN Reason: Chest Pain Stop: 10/29/19 16:41 Last Admin: 09/29/19 16:59 Dose: 0.4 mg Documented by: Pantoprazole Sodium (Protonix) 40 mg PO DAILY [facility]; Protocol Stop: 10/29/19 08:59 Last Admin: 10/01/19 08:04 Dose: 40 mg Documented by: Sacubitril/Valsartan (Entresto 24/26mg) 2 tab PO BID [facility] Stop: 10/31/19 08:59 Last Admin: 10/01/19 08:04 Dose: 2 tab Documented by: Simvastatin (Zocor) 40 mg PO DAILY [facility] Stop: 10/29/19 08:59 Last Admin: 10/01/19 08:05 Dose: 40 mg Documented by: Spironolactone (Aldactone) 12.5 mg PO DAILY [facility] Stop: 10/30/19 11:14 Last Admin: 10/01/19 08:03 Dose: 12.5 mg Documented by:
--- NOTE | 2019-10-01 16:26 | Hospitalist Progress Note ---
Date of Service October 01, 2019 Assessment & Plan (1) Cardiomyopathy: (2) Wide-complex tachycardia: (3) Chest pain: (4) Non-ST elevation MD (NSTEMI): Chest pain, elevated troponin (Initial trop was 1.99) peaked at 6.5 EKG showed wide complex tachycardia. 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 Was on amiodarone drip for 24 hoursdiscontinued today QTc 534 on admission. Avoid QT prolonging medications Was on heparin drip for 24 hours and discontinued Echo showed severe left ventricular systolic dysfunction with EF of 25 to 30%, severe hypokinesis to akinesis of anterior, anterolateral, inferolateral and inferior moreno. Aortic valve sclerosis moderate. Severe left atrial enlargement. Moderate to severe mitral regurgitation. Moderate to severe tricuspid regurgitation Devops discussed with patient and family yesterday and she opted for medical management. Currently on metoprolol succinate and spironolactone Started on Entresto yesterday Continue IV diuresis for now. Hypokalemic and hypomagnesemic this morning. Potassium was 2.9 and magnesium was 1.2. Being aggressively repleted Antibiotics discontinued (5) Diabetes: DM type II Hemoglobin A1c 7.8 Hold metformin and Januvia home medication Monitor with Lantus and sliding scale for now. Monitor blood glucose. (6) Depression: Stable Home citalopram on hold for now. (7) Hypertension: Stable. Continue metoprolol succinate Plan to start entresto as above Monitor blood pressure (8) DVT prophylaxis: heparin sq Palliative care on board with ongoing goals of care discussion with family Subjective Patient seen and examined. Reports feeling much better today. Denies chest pain, shortness of breath. Reports minimal coughing today. Still has occasional pains that are resolved with Tylenol. Denies any dizziness, palpitations. Review of Systems Review of Systems: All systems reviewed and unremarkable except for mentioned above. Physical Exam Physical Exam: General: Elderly woman in no distress Eyes: PERRL, conjunctivae normal, EOM intact bilaterally ENMT: External ear and nose normal, Has hearing aides, oropharynx normal Neck: Normal visual inspection, no tracheal deviation, no swelling noted Respiratory: Normal respiratory effort, no respiratory distress, on nasal cannula, fine bibasilar crackles Cardiovascular: Pulse is RRR. S1 S2. no pedal edema Gastrointestinal (Abdomen): Abdomen is not distended, soft, non-tender to palpation, no guarding, no palpable hepatosplenomegaly, normal bowel sounds Neurologic: Alert and oriented x 3, No focal weakness, sensation grossly intact Psychiatric: Euthymic affect, no depressed affect Results & Data Vital Signs (Past 12 Hours) Vital Signs Temp Pulse Pulse Resp BP Pulse Ox 10/01/19 14:59 36.4 C L 77 19 155/85 H 91 10/01/19 11:50 36.4 C L 68 18 135/69 95 10/01/19 08:00 94 H 10/01/19 07:08 36.7 C 77 19 146/92 H 94 Laboratory Results Abnormal lab results 09/30/19 09/30/19 10/01/19 Range/Units 16:48 20:56 06:16 RBC 4.11 L (4.2-5.4) M/uL MPV 10.6 H (7.4-10.4) fL Gates # (Auto) 0.62 H (0.11-0.59) K/uL Potassium (3.5-5.1) mmol/L Carbon Dioxide (21-32) mmol/L BUN/Creatinine Ratio (10-20) Glucose (70-99) mg/dl POC Glucose 139 H 214 H (70-99) Magnesium (1.8-2.4) mg/dl 10/01/19 10/01/19 10/01/19 Range/Units 06:16 07:22 11:26 RBC (4.2-5.4) M/uL MPV (7.4-10.4) fL Gates # (Auto) (0.11-0.59) K/uL Potassium 2.9 L (3.5-5.1) mmol/L Carbon Dioxide 35 H (21-32) mmol/L BUN/Creatinine Ratio 22.1 H (10-20) Glucose 144 H (70-99) mg/dl POC Glucose 125 H 167 H (70-99) Magnesium 1.2 L (1.8-2.4) mg/dl
[2019-10-01 16:48] LABS: BUN Creatinine Ratio 17.6 (10-20); Calcium 9.3 mg/dl (8.5-10.1); Creatinine Clr Calc Pharmacy 34.2 ml/min; Est GFR (African American) 57.7; Est GFR (Non-African American) 49.8; Magnesium 1.8 mg/dl (1.8-2.4); Potassium 4.2 mmol/L (3.5-5.1)
[2019-10-02 06:54] LABS: Basophils # (auto) 0.02 K/uL (0-0.2); Basophils % (auto) 0.3 %; Eosinophils # (auto) 0.06 K/uL (0-0.5); Eosinophils % (auto) 0.8 %; Hematocrit (blood only) 45.6 % (37-47); Hemoglobin 15.3 g/dL (12.0-16.0); Immature Granulocytes # (auto) 0.01 K/uL (0.00-0.02); Immature Granulocytes % (auto) 0.1 %; Lymphocytes # (auto) 2.04 K/uL (1.2-3.4); Lymphocytes % (auto) 28.9 %; Mean Corpuscular Hemoglobin 30.5 pg (25-34); Mean Corpuscular Hgb Conc 33.6 g/dL (32-36); Mean Corpuscular Volume 90.8 fL (80-100); Mean Platelet Volume 10.4 fL (7.4-10.4); Monocytes # (auto) 0.65 K/uL (0.11-0.59); Monocytes % (auto) 9.2 %; Neutrophils # (auto) 4.28 K/uL (1.4-6.5); Neutrophils % (auto) 60.7 %; Platelet Count 262 K/uL (130-400); RDW Coefficient of Variation 13.5 % (11.5-14.5); RDW Standard Deviation 44.1 fL (36.4-46.3); Red Blood Count 5.02 M/uL (4.2-5.4); White Blood Count 7.06 K/uL (4.8-10.8)
[2019-10-02 07:24] LABS: BUN Creatinine Ratio 26.4 (10-20); Calcium 9.4 mg/dl (8.5-10.1); Creatinine Clr Calc Pharmacy 39.2 ml/min; Est GFR (Non-African American) 58.7; Magnesium 1.5 mg/dl (1.8-2.4); Potassium 3.3 mmol/L (3.5-5.1)
[2019-10-02] MEDS ORDERED: POTASSIUM CHLORIDE PWD 20 MEQ PACK PO STA (07:58)
[2019-10-02] MEDS: FUROSEMIDE 40 MG in SYRINGE 0 ML IV SCH (08:41)
[2019-10-02] MEDS: CLOPIDOGREL BISULFATE 75 MG TAB PO SCH (08:41)
[2019-10-02] MEDS: METOPROLOL SUCC 25MG EXT REL TAB PO SCH (08:42)
[2019-10-02] MEDS: HEPARIN SOD 5,000 UNIT/0.5 ML VIAL SQ SCH (08:42)
[2019-10-02] MEDS: ASPIRIN 81 MG ECTAB PO SCH (08:42)
[2019-10-02] MEDS: SPIRONOLACTONE 25 MG TAB PO SCH (08:42)
[2019-10-02] MEDS: SIMVASTATIN 40 MG TAB PO SCH (08:42)
[2019-10-02] MEDS: PANTOprazole 40 MG TAB PO SCH (08:43)
[2019-10-02] MEDS: INSULIN GLARGINE SOLOSTAR 100 UNITS/ML 3 ML PEN SC SCH (08:44)
[2019-10-02] MEDS: SACUBITRIL-VALSARTAN 24-26 MG TAB PO SCH (08:44)
[2019-10-02] MEDS: INSULIN ASPART 100 UNITS/ML 3 ML PEN SC SCH ×2 (08:45→12:07)
[2019-10-02] MEDS: ACETAMINOPHEN 325 MG TAB PO PRN (08:47)
--- NOTE | 2019-10-02 09:07 | Cardiology Progress Note ---
Date of Service October 02, 2019 Assessment & Plan (1) Systolic heart failure, ACC/AHA stage C: (2) Mitral regurgitation: (3) Cardiomyopathy: (4) Wide-complex tachycardia: The patient is tolerating medications. I think she can be discharged to outpatient follow-up. Subjective No new cardiac problems. Patient had an uneventful night and is tolerating medications. Review of Systems Review of Systems: All systems reviewed & are unremarkable except as noted in HPI & below Nothing additional to add. Physical Exam Physical Exam: General: no acute distress and stated age Head: normocephalic, no masses, lesions, tenderness or abnormalities Eyes: conjunctiva are pink and non-injected, sclera clear Neck: supple, no adenopathy, no bruits, normal jugular venous pulse, no hepatojugular reflux Chest: normal shape and normal respiratory effort Lungs: clear to auscultation and percussion Cardiac Exam: - regular rate & rhythm, no murmurs gallops or rubs - normal S1, normal S2 Pulses: 2(+) throughout Abdomen: abdomen soft, non-tender, no abnormal masses and no hepatosplenomegaly Musculoskeletal: no gait disturbance, no joint inflammation, no deforming arthritis Extremities: no edema and no cyanosis Neuro: grossly normal exam Results & Data Vital Signs (Past 12 Hours) Vital Signs Temp Pulse Resp BP Pulse Ox 10/02/19 07:08 36.3 C L 85 18 111/68 93 10/02/19 03:25 36.5 C 86 18 125/71 91 10/02/19 00:05 36.4 C L 75 18 133/72 94 Laboratory Results Laboratory Results - last 24 hr 10/01/19 10/01/19 10/01/19 11:26 15:58 16:30 WBC RBC Hgb Hct MCV MCH MCHC RDW Std Deviation RDW Coeff of Yohannes Plt Count MPV Immature Gran % (Auto) Neut % (Auto) Lymph % (Auto) [place] % (Auto) Eos % (Auto) Baso % (Auto) Immature Gran # (Auto) Neut # (Auto) Lymph # (Auto) [place] # (Auto) Eos # (Auto) Baso # (Auto) Sodium 134 L Potassium 4.2 D Chloride 97 L Carbon Dioxide 31 Anion Gap 6.0 BUN 18 Creatinine 1.02 Est Cr Clr Drug Dosing 34.2 Est GFR ( Amer) 57.7 Est GFR (Non-Af Amer) 49.8 BUN/Creatinine Ratio 17.6 Glucose 179 H POC Glucose 167 H 179 H Calcium 9.3 Magnesium 1.8 10/01/19 10/02/19 10/02/19 20:15 05:56 05:56 WBC 7.06 RBC 5.02 Hgb 15.3 D Hct 45.6 MCV 90.8 MCH 30.5 MCHC 33.6 RDW Std Deviation 44.1 RDW Coeff of Yohannes 13.5 Plt Count 262 MPV 10.4 Immature Gran % (Auto) 0.1 Neut % (Auto) 60.7 Lymph % (Auto) 28.9 [place] % (Auto) 9.2 Eos % (Auto) 0.8 Baso % (Auto) 0.3 Immature Gran # (Auto) 0.01 Neut # (Auto) 4.28 Lymph # (Auto) 2.04 [place] # (Auto) 0.65 H Eos # (Auto) 0.06 Baso # (Auto) 0.02 Sodium 138 Potassium 3.3 L D Chloride 99 Carbon Dioxide 31 Anion Gap 8.0 BUN 23 H Creatinine 0.89 Est Cr Clr Drug Dosing 39.2 Est GFR ( Amer) 68.0 Est GFR (Non-Af Amer) 58.7 BUN/Creatinine Ratio 26.4 H Glucose 190 H POC Glucose 167 H Calcium 9.4 Magnesium 1.5 L 10/02/19 07:19 WBC RBC Hgb Hct MCV MCH MCHC RDW Std Deviation RDW Coeff of Yohannes Plt Count MPV Immature Gran % (Auto) Neut % (Auto) Lymph % (Auto) [place] % (Auto) Eos % (Auto) Baso % (Auto) Immature Gran # (Auto) Neut # (Auto) Lymph # (Auto) [place] # (Auto) Eos # (Auto) Baso # (Auto) Sodium Potassium Chloride Carbon Dioxide Anion Gap BUN Creatinine Est Cr Clr Drug Dosing Est GFR ( Amer) Est GFR (Non-Af Amer) BUN/Creatinine Ratio Glucose POC Glucose 175 H Calcium Magnesium Medications Administered Current Inpatient Medications Acetaminophen (Tylenol) 650 mg PO Q6H PRN PRN Reason: Pain Stop: 10/29/19 16:41 Last Admin: 10/02/19 08:47 Dose: 650 mg Documented by: Aspirin (Ecotrin Ectab) 81 mg PO DAILY [facility] Stop: 10/30/19 08:59 Last Admin: 10/02/19 08:42 Dose: 81 mg Documented by: Clopidogrel Bisulfate (Plavix) 75 mg PO QAM [facility] Stop: 10/29/19 14:44 Last Admin: 10/02/19 08:41 Dose: 75 mg Documented by: Dextrose (Dextrose 50%) 25 - 50 ml IV UD PRN; Protocol PRN Reason: Hypoglycemia Protocol Stop: 10/29/19 07:14 Glucagon (Glucagen) 1 mg IM UD PRN; Protocol PRN Reason: Hypoglycemia Protocol Stop: 10/29/19 07:14 Glucose (Glucose 40%) 15 - 30 gm PO UD PRN; Protocol PRN Reason: Hypoglycemia Protocol Stop: 10/29/19 07:14 Glucose (Dex4 Glucose) 4 - 8 tabs PO UD PRN; Protocol PRN Reason: Hypoglycemia Protocol Stop: 10/29/19 07:14 Heparin Sodium (Porcine) (Heparin Sodium (Porcine)) 5,000 units SQ Q12 [facility] Stop: 10/30/19 20:59 Last Admin: 10/02/19 08:42 Dose: 5,000 units Documented by: Furosemide 40 mg/ Syringe 4 mls @ 4 mls/min IV BID17 [facility] Stop: 10/30/19 16:59 Last Admin: 10/02/19 08:41 Dose: 4 mls/min Documented by: Insulin Aspart (Novolog Flexpen) 0 units SC ACHS [facility] Stop: 10/29/19 16:29 Last Admin: 10/02/19 08:45 Dose: 4 units Documented by: Insulin Glargine (Lantus Solostar Pen) 7 units SC BID [facility] Stop: 10/29/19 20:59 Last Admin: 10/02/19 08:44 Dose: 7 units Documented by: Metoprolol Succinate (Toprol Xl) 25 mg PO QAM [facility] Stop: 10/30/19 08:59 Last Admin: 10/02/19 08:42 Dose: 25 mg Documented by: Miscellaneous (Carbohydrates For Hypoglycemia) 15 - 30 gm PO UD PRN PRN Reason: Hypoglycemia Treatment Stop: 10/29/19 07:14 Nitroglycerin (Nitrostat) 0.4 mg SL PRN PRN PRN Reason: Chest Pain Stop: 10/29/19 16:41 Last Admin: 09/29/19 16:59 Dose: 0.4 mg Documented by: Pantoprazole Sodium (Protonix) 40 mg PO DAILY [facility]; Protocol Stop: 10/29/19 08:59 Last Admin: 10/02/19 08:43 Dose: 40 mg Documented by: Sacubitril/Valsartan (Entresto 24/26mg) 2 tab PO BID [facility] Stop: 10/31/19 08:59 Last Admin: 10/02/19 08:44 Dose: 2 tab Documented by: Simvastatin (Zocor) 40 mg PO DAILY [facility] Stop: 10/29/19 08:59 Last Admin: 10/02/19 08:42 Dose: 40 mg Documented by: Spironolactone (Aldactone) 12.5 mg PO DAILY [facility] Stop: 10/30/19 11:14 Last Admin: 10/02/19 08:42 Dose: 12.5 mg Documented by:
--- NOTE | 2019-10-02 13:44 | Discharge Summary ---
Date of Service October 02, 2019 Admission HPI Per Admitting Provider 84-year-old female with past medical history significant for diabetes, depression with anxiety, hyperlipidemia, presents with chest pain. The patient was raking leaves and she was having right arm pain since last 2 weeks on and off, for which she was using Tylenol, but yesterday she had Paulina dinner with her daughter. Daughter lives close by. The patient lives alone and daughter dropped the patient home at 5 p.m. and around 2:30 a.m. the patient called the daughter stating that she is having chest pain all over the chest radiating to her left arm and left hand is numb and also going to left shoulder and jaw region. Daughter came and brought the patient to the ER. In the ER when she came in, the patient's EKG showed wide complex tachycardia. She was started on amiodarone drip and converted to sinus rhythm. Currently, patient is resting comfortably, hemodynamically stable and symptoms resolved. During the episode, she was short of breath and nauseous but improved now. Denies any headache, no dizziness, no blurred vision. Hard of hearing. No sore throat, no difficulty swallowing. Appetite is okay. At one point she has had difficulty swallowing pills and she was placed on Nexium. No cough, no fevers, no nausea currently, no abdominal pain. Normal bowel and bladder movements. No blood in stools or black stools. Today, she felt she might have noticed some blood in the urine, but hemoglobin is stable on the lab work. Admission Exam Per Admitting Provider GENERAL: The patient is old and frail, not in acute distress. VITAL SIGNS: Temperature afebrile, pulse 93, respiratory rate in 20s, blood pressure 134/85, oxygen 95% on 3 liters. HEENT: No pallor, no icterus. NECK: No JVD, no neck masses, no carotid bruits. CARDIOVASCULAR: S1, S2 heard, regular rate and rhythm, no murmur, no gallop. RESPIRATORY SYSTEM: Normal AP diameter. No accessory muscle use. No wheezing, no crackles. ABDOMEN: Soft, bowel sounds present. Mild left lower quadrant tenderness, no guarding, no rigidity. No distention. CENTRAL NERVOUS SYSTEM: Cranial nerves II-XII grossly nonfocal. EXTREMITIES: No edema, no erythema. Principal Diagnosis Cardiomyopathy Acute systolic heart failure Wide-complex tachycardia Discharge Exam General: Elderly woman in no distress Eyes: PERRL, conjunctivae normal, EOM intact bilaterally ENMT: External ear and nose normal, Has hearing aides, oropharynx normal Neck: Normal visual inspection, no tracheal deviation, no swelling noted Respiratory: Normal respiratory effort, no respiratory distress, on nasal cannula, fine bibasilar crackles Cardiovascular: Pulse is RRR. S1 S2. no pedal edema Gastrointestinal (Abdomen): Abdomen is not distended, soft, non-tender to palpation, no guarding, no palpable hepatosplenomegaly, normal bowel sounds Neurologic: Alert and oriented x 3, No focal weakness, sensation grossly intact Psychiatric: Euthymic affect, no depressed affect Discharge Data Allergies Allergy/AdvReac Type Severity Reaction Status Date / Time amoxicillin Allergy Unknown UNKNOWN Verified 09/29/19 05:41 Consultations 09/29/19 05:14 ED Decision to Admit Stat 09/29/19 07:10 Consult Case Management - Discharge Planning Routine Consult Count Team Clerk Routine 09/29/19 08:23 Consult Cardiology Routine 09/30/19 11:28 Consult Palliative Care Routine Ordered Studies 09/29/19 07:55 US point of care ultrasound Urgent Hospital Course (1) Cardiomyopathy: (2) Wide-complex tachycardia: (3) Chest pain: (4) Non-ST elevation [place] (NSTEMI): Chest pain, elevated troponin (Initial trop was 1.99) peaked at 6.5 EKG showed wide complex tachycardia. 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 Was on amiodarone drip and discontinued after 24 hours QTc 534 on admission. Avoid QT prolonging medications Was on heparin drip for 24 hours and discontinued Echo showed severe left ventricular systolic dysfunction with EF of 25 to 30%, s evere hypokinesis to akinesis of anterior, anterolateral, inferolateral and inferior moreno. Aortic valve sclerosis moderate. Severe left atrial enlargement. Moderate to severe mitral regurgitation. Moderate to severe tricuspid regurgitation Operations Scheduler discussed with patient and family and she opted for medical management. Initial chest x-ray showed right basilar opacity. Antibiotics were initially started this well due to concern of possible pneumonia but was discontinued. Subsequent chest x-ray showed pulmonary edema and bilateral pleural effusion. Patient received IV diuresis with continuous monitoring and repletion of her electrolytes She was started on metoprolol XL25 mg daily, Entresto 25/26 2 tablets twice daily, spironolactone 12.5 mg daily, aspirin 81 mg daily and Plavix 75 mg daily. She is being discharged on 40 mg tablet Lasix daily. To get BMP in 3 days to monitor electrolytes and kidney function. To follow-up with cardiology outpatient for continued management Follow-up with PCP (5) Diabetes: DM type II Hemoglobin A1c 7.8 Home metformin and Januvia home medication were held while inpatient. Managed with Lantus and insulin sliding scale while in the hospital with monitoring of blood glucose. Resume home antidiabetic's on discharge (6) Depression: Stable (7) Hypertension: Stable. Blood pressure well controlled. Continue antihypertensive listed above. Total Time Total Time Spent Total Time Spent (In Minutes): 35 Total Time Includes: Examination of the Patient, Discharge Planning, Medication Reconciliation and Communication With Other Providers Discharge Plan Discharge Items Patient Disposition: Home - Self-Care Reason For Visit: CHEST PAIN Discharge Diagnosis: Cardiomyopathy Acute systolic heart failure Wide-complex tachycardia Condition on Discharge: Good Activity: Resume your previous activity Weightbearing: Full weightbearing Non-emergency contact: Primary Care Provider and Operations Scheduler Call non-emergency contact if: you have any medication questions and your symptoms worsen Follow-up/Referrals: Teena Barrera, [Primary Care Provider] - (Follow-up with me in 1 week) Diet: Heart Healthy and Low Sodium (2gm) Fluids: 2000ml (8 cups) Ambulatory Orders: Basic Metabolic Panel (Routine) Timeframe: 3 Days Location: Determined by Patient Ordered By: Rand Crawford Attending Provider Instructions: Ms. Pritchett. You came to the hospital complaining of chest pain and arm pain associated with shortness of breath. He had an extensive evaluation in the hospital. Initial blood work showed elevated troponins and abnormal heart rhythm. You were initially managed with heparin drip and amiodarone drip. Chest x-ray showed fluid in your lungs initial concern for possible pneumonia for which she received antibiotics. Echocardiogram which is an ultrasound of your heart showed you have severely reduced function [ejection fraction of 25 to 30%] You were also seen treated with injection diuretics to remove the fluid in your lungs. This resulted in improvement of shortness of breath. After family meeting with you, the drilling engineering manager, palliative care team and your children, you opted for medical management of your medical problems. Your medications were optimized while you are in the hospital. You are being discharged to follow-up with cardiology as well as your primary doctor. Please take the new medications as prescribed. Please do the blood test basic metabolic panel in 3 days to monitor your kidney function and electrolytes. It was a pleasure taking care of you. Pending Studies at Discharge: No Stand-Alone Forms: [facility], Smoking Cessation Medications and DC Order Prescriptions: New metoprolol succinate 25 mg Tablet Extended Release 24 Hr 25 mg PO QAM 30 Days Qty: 30 RF: 0 Entresto 24-26 mg Tablet 2 tab PO BID 30 Days Qty: 120 RF: 0 acetaminophen [Mapap (acetaminophen)] 325 mg Tablet 650 mg PO Q6H PRN (Reason: pain) Qty: 30 RF: 0 spironolactone 25 mg Tablet 12.5 mg PO DAILY 30 Days Qty: 15 RF: 0 clopidogrel 75 mg Tablet 75 mg PO QAM 30 Days Qty: 30 RF: 0 furosemide [Lasix] 40 mg tablet 40 mg PO DAILY 30 Days Qty: 30 RF: 0 Continued metformin 500 mg tablet extended release 24 hr 1,000 mg PO BID RF: 0 escitalopram oxalate 20 mg tablet 20 mg PO DAILY RF: 0 Januvia 100 mg tablet 100 mg PO DAILY RF: 0 aspirin 81 mg Tablet,Delayed Release (Dr/Ec) 81 mg PO DAILY RF: 0 cyanocobalamin (vitamin B-12) [Vitamin B-12] 1,000 mcg Tablet Extended Release 1,000 mcg PO 3XWK RF: 0 simvastatin 40 mg tablet 40 mg PO DAILY 30 Days Qty: 30 RF: 0 Discontinued esomeprazole magnesium 40 mg capsule,delayed release(DR/EC) 40 mg PO DAILY RF: 0 lisinopril 5 mg tablet 5 mg PO DAILY RF: 0 Discharge Orders: Discharge Order (Routine); Ordered 10/02/19 Ordered By: Rand Johnston Admission Data Admit Date/Time: 09/29/19 05:50 Attending Provider: Rand Johnston I. Admit Provider: Murphy Park Primary Care Provider: Teena Barrrea Other Providers: [place] ; Josh Gutierrez ; Richard Palmer ; Angeline,Maria Esther H Other Interventions: Discharge Summary Assessment (RN) Last Done: 10/02/19 14:28 DC Date/Time DO NOT enter until pt leaves facility: 10/02/19 15:11
== END 2019-10-02 15:11 | disposition home or self-care (01) | DRG 280 ==
LOC: ED 04:02 → 1E 05:50 → 2S 16:14

== ENCOUNTER 2021-01-30 19:27 | Inpatient (IN) ==
[2021-01-30] MEDS ORDERED: SODIUM CHLORIDE 0.9% 500 ML IV STA (19:36)
[2021-01-30] MEDS ORDERED: ADENOSINE IV SOLN 3 MG/ML 2 ML VIAL IV STA (19:36)
[2021-01-30] MEDS ORDERED: AMIODARONE 150MG / 100ML D5W IV ONE (19:52)
[2021-01-30] MEDS ORDERED: LORazepam 0.25 MG/0.5 ML VIAL IV STA (19:57)
[2021-01-30] MEDS ORDERED: 0.2 MICRON FILTER SET 1 EA IV ONE ×2 (19:58→20:06)
[2021-01-30] MEDS ORDERED: STAT IV Infusion **Titration per Protocol STA (19:58)
[2021-01-30] MEDS ORDERED: AMIODARONE IV BOLUS & DRIP IV STA (19:58)
[2021-01-30] MEDS ORDERED: AMIODARONE / D5W 360 MG/200 ML BAG IV ONE (19:58)
[2021-01-30] MEDS ORDERED: AMIODARONE / D5W 150 MG/100 ML BAG IV STA ×2 (19:58→20:06)
--- NOTE | 2021-01-30 20:06 | XRay Report ---
XR chest 1V portable CLINICAL HISTORY: Chest Pain COMPARISON STUDY: Chest radiograph January 29, 2021. FINDINGS: Lung volumes are normal. Lungs are clear. There is no pneumothorax or pleural effusion. Car diac size is normal. Mitral annular calcification is noted. Mediastinal contours are normal. There is no evidence for pulmonary edema. IMPRESSION: No acute cardiopulmonary findings. ACT 112: Negative or not required by law. Electronically signed by: Christophe Bess M.D. 01/30/2021 8:04 PM
[2021-01-30 20:25] LABS: Basophils # (auto) 0.01 K/uL (0-0.2); Basophils % (auto) 0.2 %; Eosinophils # (auto) 0.06 K/uL (0-0.5); Eosinophils % (auto) 1.1 %; Hematocrit (blood only) 37.5 % (37-47); Hemoglobin 12.4 g/dL (12.0-16.0); Immature Granulocytes # (auto) 0.01 K/uL (0.00-0.02); Immature Granulocytes % (auto) 0.2 %; Lymphocytes # (auto) 1.25 K/uL (1.2-3.4); Lymphocytes % (auto) 22.2 %; Mean Corpuscular Hemoglobin 30.1 pg (25-34); Mean Corpuscular Hgb Conc 33.1 g/dL (32-36); Mean Platelet Volume 10.7 fL (7.4-10.4); Monocytes # (auto) 0.34 K/uL (0.11-0.59); Neutrophils # (auto) 3.96 K/uL (1.4-6.5); Neutrophils % (auto) 70.3 %; Platelet Count 200 K/uL (130-400); RDW Coefficient of Variation 13.2 % (11.5-14.5); RDW Standard Deviation 43.8 fL (36.4-46.3); Red Blood Count 4.12 M/uL (4.2-5.4); White Blood Count 5.63 K/uL (4.8-10.8)
[2021-01-30 20:34] LABS: iSTAT Creatinine 1.1 mg/dl (0.6-1.3); iSTAT Hemoglobin 13.3 g/dl (12.0-16.0); iSTAT Ionized Calcium 1.12 mmol/l (1.12-1.32); iSTAT Potassium 4.6 mmol/L (3.3-5.0)
[2021-01-30 20:46] LABS: Albumin Level 3.7 gm/dl (3.4-5.0); BUN Creatinine Ratio 23.4 (10-20); Creatinine Clr Calc Pharmacy 31.1 ml/min; Est GFR (Non-African American) 42.3; Magnesium 1.5 mg/dl (1.8-2.4); Potassium 4.5 mmol/L (3.5-5.1)
[2021-01-30] MEDS ORDERED: MAGNESIUM SULFATE / D5W 1 GM/100 ML BAG IV STA (20:51)
[2021-01-30 20:52] LABS: Albumin Globulin Ratio 1.3 (0.9-2); Bilirubin,Total 0.5 mg/dl (0.2-1); Globulin 2.8 gm/dl (2.5-4.0); Total Protein 6.5 gm/dl (6.4-8.2); Troponin I 0.388 ng/ml (0-0.045)
[2021-01-30] MEDS ORDERED: OPTIRAY 350 500ml IV ONE (21:24)
[2021-01-30 21:52] LABS: Influenza A virus by PCR Negative (Neg); Influenza B virus by PCR Negative (Neg); RSV by PCR Negative (Neg); SARS CoV2 RNA(COVID-19) InHosp NEGATIVE (Negative)
--- NOTE | 2021-01-30 22:26 | Emergency Department Note ---
History of Present Illness General Chief complaint: Chest Pain Stated complaint: CHEST PAIN, ARM PAIN Time Seen by Provider: 01/30/21 19:35 Source: family (Daughter at bedside) History of Present Illness Provider complaint: Weakness Onset (ago): day(s) 1 Maximum Pain Intensity: 10 85-year-old female presents emergency department for weakness. Patient has a history of dementia and is unable to give history. Daughter reports that the patient has been weak all day not getting out of bed. She reports that the pat ient did fall yesterday. Patient is not on any blood thinners. Daughter reports she took the patient's blood pressure at home and her heart rate was in the 140s. She reports she was seen here in the emergency department yesterday for high heart rate and was offered to stay overnight however they decided to go home. Home Medications Medication Instructions Recorded Confirmed Type Januvia 100 mg PO QAM 04/15/19 01/30/21 History aspirin 81 mg PO QAM 04/15/19 01/30/21 History escitalopram oxalate 20 mg PO HS 04/15/19 01/30/21 History metformin 500 mg PO BID 04/15/19 01/30/21 History acetaminophen [Tylenol Extra 500 mg PO Q6H PRN 01/29/21 01/30/21 History Strength] bupropion HCl 150 mg PO QAM 01/29/21 01/30/21 History metoprolol succinate 25 mg PO HS 01/29/21 01/30/21 History pantoprazole 40 mg PO HS 01/29/21 01/30/21 History sacubitril-valsartan [Entresto] 1 tab PO BID 01/29/21 01/30/21 History simvastatin 40 mg PO HS 01/29/21 01/30/21 History Allergies Allergy/AdvReac Type Severity Reaction Status Date / Time amoxicillin Allergy Unknown UNKNOWN Verified 01/30/21 20:58 Past Med/Surg History Medical History (Updated 01/30/21 @ 22:43 by Dirk Castillo) Cardiomyopathy Depression Diabetes Diabetes Hx of migraines Mitral regurgitation Myocardial infarction due to demand ischemia Non-ST elevation OK (NSTEMI) Paroxysmal supraventricular tachycardia Systolic heart failure, ACC/AHA stage C Ventricular tachycardia Wide-complex tachycardia Surgical History (Updated 01/30/21 @ 22:29 by Dirk Castillo) No pertinent past surgical history Family History (Updated 01/30/21 @ 22:30 by Dirk Castillo) Other Coronary heart disease Social History Smoking Status: Never smoker Hx Alcohol Use: No Hx Substance Use: No Preferred Language: Welsh Communication Ability: Effective [employer] Pasture [employer] Worker Required: No Current Living Situation: Alone Feels Safe at Home: Yes Assistive Devices: Denture - Upper, Hearing Aid - Bilateral and Oxygen - Continuous Review of Systems Unobtainable due to cognitive status Physical Exam Vital Signs Vital Signs - 24 hr 01/30/21 19:29 01/30/21 19:47 01/30/21 19:49 Temperature 36.4 C L Temperature Source Temporal Artery Scan Pulse Rate 150 H 142 H 142 H Pulse Rate from SpO2 Sensor 142 H 142 H Respiratory Rate 18 18 20 Respiratory Depth Normal Blood Pressure 124/80 119/90 Blood Pressure Mean 94 99 Pulse Oximetry 97 96 97 Oxygen Delivery Method Room Air Room Air Sepsis Recent Fever Within 48 Hours No Sepsis New/Unexplained Change in Mental Status N/A Sepsis Action Taken by Nursing No Action Required 01/30/21 19:50 01/30/21 19:51 01/30/21 19:52 Temperature Temperature Source Pulse Rate 143 H 144 H 144 H Pulse Rate from SpO2 Sensor 143 H 144 H 143 H Respiratory Rate 18 21 20 Respiratory Depth Blood Pressure 125/86 121/82 Blood Pressure Mean 99 95 Pulse Oximetry 96 97 97 Oxygen Delivery Method Sepsis Recent Fever Within 48 Hours Sepsis New/Unexplained Change in Mental Status Sepsis Action Taken by Nursing 01/30/21 19:54 01/30/21 19:56 01/30/21 19:58 Temperature Temperature Source Pulse Rate 143 H 142 H 139 H Pulse Rate from SpO2 Sensor 143 H 142 H 139 H Respiratory Rate 17 21 17 Respiratory Depth Blood Pressure 115/72 108/74 109/76 Blood Pressure Mean 86 85 87 Pulse Oximetry 98 98 98 Oxygen Delivery Method Sepsis Recent Fever Within 48 Hours Sepsis New/Unexplained Change in Mental Status Sepsis Action Taken by Nursing 01/30/21 20:00 01/30/21 20:01 01/30/21 20:02 Temperature Temperature Source Pulse Rate 139 H 136 H 131 H Pulse Rate from SpO2 Sensor 139 H 135 H 131 H Respiratory Rate 21 20 17 Respiratory Depth Blood Pressure 110/82 122/70 Blood Pressure Mean 91 87 Pulse Oximetry 97 97 97 Oxygen Delivery Method Sepsis Recent Fever Within 48 Hours Sepsis New/Unexplained Change in Mental Status Sepsis Action Taken by Nursing 01/30/21 20:14 01/30/21 20:16 01/30/21 20:20 Temperature Temperature Source Pulse Rate 132 H 133 H 127 H Pulse Rate from SpO2 Sensor 132 H 134 H Respiratory Rate 17 17 15 Respiratory Depth Blood Pressure 128/93 120/87 120/87 Blood Pressure Mean 104 98 98 Pulse Oximetry 92 93 92 Oxygen Delivery Method Sepsis Recent Fever Within 48 Hours Sepsis New/Unexplained Change in Mental Status Sepsis Action Taken by Nursing 01/30/21 20:25 01/30/21 20:30 01/30/21 20:35 Temperature Temperature Source Pulse Rate 120 H 120 H 120 H Pulse Rate from SpO2 Sensor Respiratory Rate 16 23 18 Respiratory Depth Blood Pressure 100/79 117/78 119/79 Blood Pressure Mean 86 91 92 Pulse Oximetry 95 94 98 Oxygen Delivery Method Room Air Sepsis Recent Fever Within 48 Hours Sepsis New/Unexplained Change in Mental Status Sepsis Action Taken by Nursing 01/30/21 20:40 01/30/21 20:45 01/30/21 20:50 Temperature Temperature Source Pulse Rate 122 H 123 H 121 H Pulse Rate from SpO2 Sensor 123 H Respiratory Rate 20 15 22 Respiratory Depth Blood Pressure 123/83 112/75 116/79 Blood Pressure Mean 96 87 91 Pulse Oximetry 93 95 94 Oxygen Delivery Method Sepsis Recent Fever Within 48 Hours Sepsis New/Unexplained Change in Mental Status Sepsis Action Taken by Nursing 01/30/21 20:55 01/30/21 21:00 01/30/21 21:05 Temperature Temperature Source Pulse Rate 122 H 125 H 125 H Pulse Rate from SpO2 Sensor 123 H 125 H Respiratory Rate 24 29 H 22 Respiratory Depth Blood Pressure 119/85 112/79 106/80 Blood Pressure Mean 96 90 88 Pulse Oximetry 94 94 93 Oxygen Delivery Method Sepsis Recent Fever Within 48 Hours Sepsis New/Unexplained Change in Mental Status Sepsis Action Taken by Nursing 01/30/21 21:10 01/30/21 21:15 01/30/21 21:16 Temperature Temperature Source Pulse Rate 124 H 123 H 123 H Pulse Rate from SpO2 Sensor 123 H 123 H Respiratory Rate 22 26 H 25 H Respiratory Depth Blood Pressure 111/81 130/82 Blood Pressure Mean 91 98 Pulse Oximetry 95 94 93 Oxygen Delivery Method Sepsis Recent Fever Within 48 Hours Sepsis New/Unexplained Change in Mental Status Sepsis Action Taken by Nursing 01/30/21 21:39 01/30/21 21:40 01/30/21 21:50 Temperature Temperature Source Pulse Rate 125 H 123 H 123 H Pulse Rate from SpO2 Sensor Respiratory Rate 21 23 17 Respiratory Depth Blood Pressure 118/77 103/71 107/75 Blood Pressure Mean 90 81 85 Pulse Oximetry 95 96 94 Oxygen Delivery Method Room Air Sepsis Recent Fever Within 48 Hours Sepsis New/Unexplained Change in Mental Status Sepsis Action Taken by Nursing 01/30/21 22:00 01/30/21 22:10 Temperature Temperature Source Pulse Rate 120 H 117 H Pulse Rate from SpO2 Sensor Respiratory Rate 20 22 Respiratory Depth Blood Pressure 107/74 120/81 Blood Pressure Mean 85 94 Pulse Oximetry 94 94 Oxygen Delivery Method Room Air Sepsis Recent Fever Within 48 Hours Sepsis New/Unexplained Change in Mental Status Sepsis Action Taken by Nursing Physical Exam GENERAL: She is oriented to person, place, and time. She appears well-developed and well-nourished. She does not appear distressed. HENT: Exam performed. -Head: Normocephalic and atraumatic. -Right Ear: External ear normal. No mastoid tenderness. -Left Ear: External ear normal. No mastoid tenderness. -Mouth/Throat: The oropharynx is clear and moist. No trismus in the jaw. No dental abscesses or uvula swelling. No oropharyngeal exudate or tonsillar abscesses. EYES: Conjunctivae and EOM are normal. Pupils are equal, round, and reactive to light. Right eye exhibits no discharge. Left eye exhibits no discharge. No scleral icterus. NECK: Normal range of motion. Neck supple. No JVD present. No spinous process tenderness present. No carotid bruit present. No rigidity. No tracheal deviation and normal range of motion present. No Brudzinski's sign and no Kernig's sign noted. CV: Tachycardic rate, regular rhythm, normal heart sounds and intact distal pulses. There is no peripheral edema. Palpable radial pulses bue. PULM/CHEST: Effort normal and breath sounds normal. No respiratory distress. No stridor. She has no wheezes. She has no rales. -Chest Wall: She exhibits no tenderness. ABD: The abdomen is soft. Bowel sounds are normal. She has no distension. No mass is present. There is no tenderness. There is no rebound, no guarding, no Dominguez's sign and no tenderness at McBurney's point. Rovsig negative MUSC/SKEL: Normal range of motion. There is no peripheral edema, tenderness or deformity. LYMPH: No cervical adenopathy. NEURO: She is alert and oriented to person, place, and time. She has normal strength. No cranial nerve deficit or sensory deficit. Coordination and gait normal. GCS eye subscore is 4. GCS verbal subscore is 5. GCS motor subscore is 6. Cerebellar tests wnl. SKIN: Skin is warm and dry. She is not diaphoretic. PSYCH: She has a normal mood and affect. Behavior is normal. Judgment and thought content normal. Course Course 1934: The patient was evaluated in room B7. A complete history and physical exam was performed Cardiac monitoring: An order was placed for continuous cardiac monitoring. The monitor shows a rate of 140 with regular rhythm EMR reviewed. Patient was seen in the emergency department yesterday. Patient was in a wide-complex tachycardia with a heart rate in the 140s. She was given 6 mg of adenosine which improved the patient's heart rate into the 70s. Patient was discharged home. We will attempt to regive the patient adenosine 6 mg to see if that helps. 1952: Adenosine 6 mg IV push did not improve the patient's ventricular rate. We will attempt amiodarone 150 mg over 10 minutes and then start amnio drip to improve the patient's ventricular rate. Ativan 0.25 mg ordered for the patient given the patient's elderly age. 2012: Patient's ventricular rate improved minimally into the 130s. We will reattempt to give amiodarone bolus of 150 mg again and if that does not improve the patient's ventricular rate will consider cardioversion. Dr. Rowland has been made aware of the patient. 2029: Patient's ventricular rate improved into the 1 teens. Patient still has a wide-complex tachycardia. It is unclear if the patient is in true ventricular tachycardia or could be in an underlying atrial flutter with an established bifascicular block. Patient started on amnio drip. 2049: Patient's labs show a magnesium of 1.5. Will replace patient's magnesium in the emergency department. Patient's troponin is elevated 0.388 up from 0.123 yesterday. Will obtain CTA of the chest to make sure there is no PE. Given the patient's recent fall also obtain CT of the head. Patient's INR is therapeutic. 2236: CT of the head is negative for acute intracranial injury and CTA of the chest is negative for PE. Patient remains in a wide-complex tachycardia with a ventricular rate in the 115 area on the amnio drip. [facility]. Administered Medications Amiodarone HCl/Dextrose (Nexterone / D5w) 360 mg in 200 mls @ 33.333 mls/hr IV ONE ONE Stop: 01/31/21 01:57 Last Admin: 01/30/21 20:31 Dose: 33.3 mls/hr Documented by: [id number] Cosigned by: [id number] Discontinued Medications Adenosine (Adenosine Iv Soln 3 Mg/Ml 2 Ml Vial) 6 mg IV NOW STA Stop: 01/30/21 19:37 Last Admin: 01/30/21 19:49 Dose: 6 mg Documented by: [id number] Amiodarone HCl/Dextrose (Amiodarone 150mg / 100ml D5w) Confirm Administered Dose 150 mg IV .STK-MED ONE Stop: 01/30/21 19:53 Last Admin: 01/30/21 19:55 Dose: 150 mg Documented by: [id number] Cosigned by: [id number] Amiodarone HCl (Amiodarone Iv Bolus & Drip) 1 ea IV NOW STA; Protocol Stop: 01/30/21 19:59 Last Admin: 01/30/21 20:02 Dose: 1 ea Documented by: [id number] Sodium Chloride (Nss) 500 mls @ 999 mls/hr IV .Q31M STA Stop: 01/30/21 20:06 Last Infusion: 01/30/21 20:29 Dose: 0 mls/hr Documented by: [id number] Admin: 01/30/21 19:49 Dose: 999 mls/hr Documented by: [id number] Lorazepam (Ativan) 0.25 mg in 0.5 mls @ 0.5 mls/min IV NOW STA Stop: 01/30/21 19:58 Last Admin: 01/30/21 20:05 Dose: 0.5 mls/min Documented by: [id number] Amiodarone HCl/Dextrose (Nexterone / D5w) 150 mg in 100 mls @ 600 mls/hr IV NOW STA Stop: 01/30/21 20:07 Last Admin: 01/30/21 20:02 Dose: Not Given Documented by: [id number] Amiodarone HCl/Dextrose (Nexterone / D5w) 150 mg in 100 mls @ 600 mls/hr IV NOW STA Stop: 01/30/21 20:15 Last Admin: 01/30/21 20:17 Dose: 600 mls/hr Documented by: [id number] Cosigned by: [id number] Magnesium Sulfate/Dextrose (Magnesium Sulfate / D5w) 1 gm in 100 mls @ 100 mls/hr IV NOW STA Stop: 01/30/21 21:50 Last Admin: 01/30/21 21:42 Dose: 100 mls/hr Documented by: [id number] Ioversol (Optiray 350 500ml) 96 ml IV ONCE ONE Stop: 01/30/21 21:25 Last Admin: 01/30/21 21:27 Dose: 96 ml Documented by: [id number] Miscellaneous (Stat Iv Infusion Titration Per Protocol) 1 ea N/A NOW STA Stop: 01/30/21 19:59 Last Admin: 01/30/21 20:02 Dose: 1 ea Documented by: [id number] Critical Care Time Critical Care Time: Yes Total Critical Care Time: 87 I have personally spent greater than 87 minutes of critical care time in the direct management of this patient. This includes bedside care, interpretation of diagnostic studies, and testing, discussion with consultants, patient, and family members, and other required patient management activities. This 87 minutes is in excess of all separately billable procedures. Medical Decision Making Laboratory Data Result diagrams: 01/30/21 20:14 01/30/21 20:14 Lab Results 01/30/21 01/30/21 01/30/21 Range/Units 20:14 20:14 20:20 WBC 5.63 (4.8-10.8) K/uL RBC 4.12 L (4.2-5.4) M/uL Hgb 12.4 (12.0-16.0) g/dL POC Hgb 13.3 (12.0-16.0) g/dl Hct 37.5 (37-47) % POC Hct 39 (37-47) % MCV 91.0 (80-100) fL MCH 30.1 (25-34) pg MCHC 33.1 (32-36) g/dL RDW Std Deviation 43.8 (36.4-46.3) fL RDW Coeff of Yohannes 13.2 (11.5-14.5) % Plt Count 200 (130-400) K/uL MPV 10.7 H (7.4-10.4) fL Immature Gran % (Auto) 0.2 % Neut % (Auto) 70.3 % Lymph % (Auto) 22.2 % [place] % (Auto) 6.0 % Eos % (Auto) 1.1 % Baso % (Auto) 0.2 % Neut # (Auto) 3.96 (1.4-6.5) K/uL Lymph # (Auto) 1.25 (1.2-3.4) K/uL [place] # (Auto) 0.34 (0.11-0.59) K/uL Eos # (Auto) 0.06 (0-0.5) K/uL Baso # (Auto) 0.01 (0-0.2) K/uL Immature Gran # (Auto) 0.01 (0.00-0.02) K/uL POC Sodium 134 L (135-144) mmol/L Sodium 135 L (136-145) mmol/L POC Potassium 4.6 (3.3-5.0) mmol/L Potassium 4.5 (3.5-5.1) mmol/L POC Chloride 102 (101-112) mmol/L Chloride 105 (98-107) mmol/L Carbon Dioxide 24 (21-32) mmol/L POC Total CO2 23 L (24-31) mmol/L Anion Gap 6.0 (3-11) POC Anion Gap 15.0 L (16-25) mmol/L POC BUN 26 H (7-18) mg/dl BUN 27 H (7-18) mg/dl Creatinine 1.16 (0.6-1.2) mg/dl POC Creatinine 1.1 (0.6-1.3) mg/dl Est Cr Clr Drug Dosing 31.1 ml/min Est GFR ( Amer) 49.0 Est GFR (Non-Af Amer) 42.3 BUN/Creatinine Ratio 23.4 H (10-20) Glucose 257 H (70-99) mg/dl POC Glucose (other) 255 H (70-99) mg/dl Calcium 9.0 (8.5-10.1) mg/dl POC Ioniz Calcium Kat 1.12 (1.12-1.32) mmol/l Magnesium 1.5 L (1.8-2.4) mg/dl Total Bilirubin 0.5 (0.2-1) mg/dl AST 20 (15-37) U/L ALT 18 (12-78) U/L Alkaline Phosphatase 55 (45-117) U/L Troponin I 0.388 H* (0-0.045) ng/ml Total Protein 6.5 (6.4-8.2) gm/dl Albumin 3.7 (3.4-5.0) gm/dl Globulin 2.8 (2.5-4.0) gm/dl Albumin/Globulin Ratio 1.3 (0.9-2) Lipase 99 (73-393) U/L COVID-19 Eval Order SARS-CoV-2 (PCR) (Negative) Influenza Type A (PCR) (Neg) Influenza Type B (PCR) (Neg) RSV (RT-PCR) (Neg) 01/30/21 01/30/21 Range/Units 20:53 20:53 WBC (4.8-10.8) K/uL RBC (4.2-5.4) M/uL Hgb (12.0-16.0) g/dL POC Hgb (12.0-16.0) g/dl Hct (37-47) % POC Hct (37-47) % MCV (80-100) fL MCH (25-34) pg MCHC (32-36) g/dL RDW Std Deviation (36.4-46.3) fL RDW Coeff of Yohannes (11.5-14.5) % Plt Count (130-400) K/uL MPV (7.4-10.4) fL Immature Gran % (Auto) % Neut % (Auto) % Lymph % (Auto) % [place] % (Auto) % Eos % (Auto) % Baso % (Auto) % Neut # (Auto) (1.4-6.5) K/uL Lymph # (Auto) (1.2-3.4) K/uL [place] # (Auto) (0.11-0.59) K/uL Eos # (Auto) (0-0.5) K/uL Baso # (Auto) (0-0.2) K/uL Immature Gran # (Auto) (0.00-0.02) K/uL POC Sodium (135-144) mmol/L Sodium (136-145) mmol/L POC Potassium (3.3-5.0) mmol/L Potassium (3.5-5.1) mmol/L POC Chloride (101-112) mmol/L Chloride (98-107) mmol/L Carbon Dioxide (21-32) mmol/L POC Total CO2 (24-31) mmol/L Anion Gap (3-11) POC Anion Gap (16-25) mmol/L POC BUN (7-18) mg/dl BUN (7-18) mg/dl Creatinine (0.6-1.2) mg/dl POC Creatinine (0.6-1.3) mg/dl Est Cr Clr Drug Dosing ml/min Est GFR ( Amer) Est GFR (Non-Af Amer) BUN/Creatinine Ratio (10-20) Glucose (70-99) mg/dl POC Glucose (other) (70-99) mg/dl Calcium (8.5-10.1) mg/dl POC Ioniz Calcium Kat (1.12-1.32) mmol/l Magnesium (1.8-2.4) mg/dl Total Bilirubin (0.2-1) mg/dl AST (15-37) U/L ALT (12-78) U/L Alkaline Phosphatase (45-117) U/L Troponin I (0-0.045) ng/ml Total Protein (6.4-8.2) gm/dl Albumin (3.4-5.0) gm/dl Globulin (2.5-4.0) gm/dl Albumin/Globulin Ratio (0.9-2) Lipase (73-393) U/L COVID-19 Eval Order CovFluRsv at [facility] SARS-CoV-2 (PCR) NEGATIVE (Negative) Influenza Type A (PCR) Negative (Neg) Influenza Type B (PCR) Negative (Neg) RSV (RT-PCR) Negative (Neg) Imaging Data Radiologist's Impression: Chest X-Ray 01/30/21 19:36 XR chest 1V portable CLINICAL HISTORY: Chest Pain COMPARISON STUDY: Chest radiograph January 29, 2021. FINDINGS: Lung volumes are normal. Lungs are clear. There is no pneumothorax or pleural effusion. Cardiac size is normal. Mitral annular calcification is noted. Mediastinal contours are normal. There is no evidence for pulmonary edema. IMPRESSION: No acute cardiopulmonary findings. ACT 112: Negative or not required by law. Electronically signed by: Christophe Bess M.D. 01/30/2021 8:04 PM Preliminary Findings Only See Final Report For Complete Findings CTA CHEST: No pulmonary embolism. Advanced coronary artery calcification. No acute abnormality in the lungs. Radiologist: Michael Franks MD Study ready at 21:39 and initial results transmitted at 22:10 Preliminary Findings Only See Final Report For Complete Findings CT HEAD: No intracranial hemorrhage, mass-effect, or edema. Chronic microvascular ischem ic changes. Paranasal sinuses and mastoid air cells are clear. No fracture. Radiologist: Michael Franks MD Study ready at 21:37 and initial results transmitted at 22:07 ECG Data Additional Comments: EKG #1 at 194: Wide-complex tachycardia with a ventricular rate of 143. QRS 140 QTC 546. Bifascicular block present. Left ventricular hypertrophy present. No ST elevation or ST depression. EKG #2 in 1952 status post adenosine 6 mg IV push: Wide-complex tachycardia with ventricular rate of 143. QRS 138 QTC 543. Bifascicular block present. Left ventricular hypertrophy present. No ST elevation or ST depression. EKG #3 at 2012 status post amiodarone 150 mg bolus over 10 minutes: Wide-complex tachycardia with ventricular rate of 130. QRS 150 QTC 562. Bifascicular block present. Left ventricular hypertrophy present. No ST elevation or ST depression. EKG #4 at 2028 status post second bolus of amiodarone 150 mg over 10 minutes: Wide-complex tachycardia with ventricular rate of 118. QRS 154 QTC 557. Bifascicular block present. Left ventricular hypertrophy present. No ST elevation or ST depression. [facility] Narrative 1935: The patient was evaluated in room B7. A complete history and physical exam was performed Cardiac monitoring: An order was placed for continuous cardiac monitoring. The monitor shows a rate of 140 with regular rhythm EMR reviewed. Patient was seen in the emergency department yesterday. Patient was in a wide-complex tachycardia with a heart rate in the 140s. She was given 6 mg of adenosine which improved the patient's heart rate into the 70s. Patient was discharged home. We will attempt to regive the patient adenosine 6 mg to see if that helps. 1952: Adenosine 6 mg IV push did not improve the patient's ventricular rate. We will attempt amiodarone 150 mg over 10 minutes and then start amnio drip to improve the patient's ventricular rate. Ativan 0.25 mg ordered for the patient given the patient's elderly age. 2012: Patient's ventricular rate improved minimally into the 130s. We will reattempt to give amiodarone bolus of 150 mg again and if that does not improve the patient's ventricular rate will consider cardioversion. Dr. Rowland has been made aware of the patient. 2029: Patient's ventricular rate improved into the 1 teens. Patient still has a wide-complex tachycardia. It is unclear if the patient is in true ventricular tachycardia or could be in an underlying atrial flutter with an established bifascicular block. Patient started on amnio drip. 2049: Patient's labs show a magnesium of 1.5. Will replace patient's magnesium in the emergency department. Patient's troponin is elevated 0.388 up from 0.123 yesterday. Will obtain CTA of the chest to make sure there is no PE. Given the patient's recent fall also obtain CT of the head. Patient's INR is therapeutic. 2235: CT of the head is negative for acute intracranial injury and CTA of the chest is negative for PE. Patient remains in a wide-complex tachycardia with a ventricular rate in the 115 area on the amnio drip. [facility]. Impression & Plan Wide-complex tachycardia, Hypomagnesemia Discharge Plan Visit Data Chief Complaint: Chest Pain Stated Complaint: CHEST PAIN, ARM PAIN ED Provider: Dirk Castillo Discharge Problem: Wide-complex tachycardia, Hypomagnesemia Patient Disposition: Admitted As Inpatient Forms Stand Alone Forms: My [facility] Prescriptions Prescriptions: No Action metformin 500 mg tablet extended release 24 hr 500 mg PO BID RF: 0 escitalopram oxalate 20 mg tablet 20 mg PO HS RF: 0 Januvia 100 mg tablet 100 mg PO QAM RF: 0 aspirin 81 mg Tablet,Delayed Release (Dr/Ec) 81 mg PO QAM RF: 0 acetaminophen [Tylenol Extra Strength] 500 mg Tablet 500 mg PO Q6H PRN (Reason: Pain) RF: 0 pantoprazole 40 mg tablet,delayed release (DR/EC) 40 mg PO HS RF: 0 metoprolol succinate 25 mg tablet extended release 24 hr 25 mg PO HS RF: 0 bupropion HCl 150 mg tablet extended release 24 hr 150 mg PO QAM RF: 0 Entresto 49-51 mg tablet 1 tab PO BID RF: 0 simvastatin 40 mg tablet 40 mg PO HS RF: 0 Referrals Referrals: Daisha Workman PA-C [Primary Care Provider] -
[2021-01-31] MEDS ORDERED: HEPARIN SODIUM/DEXTROSE 25,000 UNITS/500 ML BAG IV SCH (00:53)
[2021-01-31] MEDS ORDERED: METOPROLOL SUCC 25MG EXT REL TAB PO STA (00:53)
[2021-01-31] MEDS ORDERED: NITROGLYCERIN SL 0.4 MG/TAB TAB SL PRN (00:53)
[2021-01-31] MEDS ORDERED: SODIUM CHLORIDE 0.9% 1000ML 1,000 ML IV SCH (00:53)
[2021-01-31] MEDS ORDERED: ACETAMINOPHEN 325 MG TAB PO PRN (00:53)
[2021-01-31] MEDS ORDERED: POLYETHYLENE (MIRALAX) 17 GM PACK PO PRN (00:53)
[2021-01-31] MEDS ORDERED: CARBOHYDRATES FOR HYPOGLYCEMIA PO PRN (01:15)
[2021-01-31] MEDS ORDERED: GLUCOSE 10 TABS/TUBE PO PRN (01:15)
[2021-01-31] MEDS ORDERED: GLUCAGON FOR INJ 1 MG VIAL SQ PRN (01:15)
[2021-01-31] MEDS ORDERED: GLUCOSE 40% GEL 15 GM TUBE PO PRN (01:15)
[2021-01-31] MEDS ORDERED: DEXTROSE 50% 50 ML SYRINGE IV PRN (01:15)
[2021-01-31 01:37] LABS: INR 1.1 (0.9-1.1); Prothrombin Time 10.8 Seconds (9.0-12.0)
[2021-01-31] MEDS ORDERED: AMIODARONE / D5W 360 MG/200 ML BAG IV SCH (01:58)
--- NOTE | 2021-01-31 02:45 | History and Physical Report ---
DATE OF ADMISSION: 01/30/2021 CHIEF COMPLAINT: Chest pain, dizziness. HISTORY OF PRESENT ILLNESS: An 85-year-old female with past medical history significant for type 2 diabetes, chronic kidney disease stage III, history of chronic systolic congestive heart failure, ejection fraction of 25% to 30%, nonischemic mitral valve regurgitation, bifascicular bundle branch block, nonrheumatic tricuspid valve regurgitation, left atrial enlargement, depression with anxiety, who presents with chest pain, dizziness, and not feeling well. The patient lives alone, ambulates without any support. Daughter lives next door. The patient was in the ER yesterday with a similar issue and she was found to be in wide complex tachycardia, which was resolved after a dose of adenosine. Seen by cardiology and as the patient did fine she was discharged home. As per daughter after going home, she did fine, she even worked in the garden and two out some weeds and did not have any issues last night, but today she slept whole day, not eating or drinking much and later in the day, she complained of chest pain and similar kind of symptoms and when daughter checked her systolic blood pressure was in 100s, diastolic in the 60s, but heart rate was again in like 130s and 140s, so she was brought in here and found to be in wide complex tachycardia. Adenosine was tried again, but it did not resolve the tachycardia and two doses of amiodarone 150 mg were given, which also slowed the heart rate, but did not help much. At that time, she was started on amiodarone drip and also cardiology on-call was notified. The patient says currently chest pain is resolved. Denies any headache. When her sugar is high, she gets some blurred visions. No runny nose, no sore throat, no cough, no shortness of breath, no nausea, no abdominal pain. Normal bowel and bladder movements. She says the appetite is good and she swallows okay. ALLERGIES: PENICILLINS. PAST MEDICAL HISTORY: As mentioned above. PAST SURGICAL HISTORY: Cataract surgery. MEDICATIONS: The patient is on Tylenol 500 mg p.o. q.6h. p.r.n., aspirin 81 mg p.o. daily, bupropion 150 mg p.o. a.m., Lexapro 20 mg p.o. daily, Januvia 100 mg a.m., metformin 500 mg p.o. b.i.d., Toprol-XL 25 mg p.o. at bedtime, Protonix 40 mg p.o. daily, Entresto 49/51 mg 1 tablet b.i.d., simvastatin 40 mg p.o. at bedtime. FAMILY HISTORY: No family history on file. SOCIAL HISTORY: Lives alone. Daughter lives next door. No smoking, no alcohol, no drug use. REVIEW OF SYSTEMS: As per HPI. Rest of the review of systems negative. PHYSICAL EXAMINATION: GENERAL: The patient is old and frail, not in acute distress. VITAL SIGNS: Temperature 36.4, pulse currently 116, respiratory rate in 30s, blood pressure 101/67, oxygen 96% on room air. HEENT: Pupils equal, round, reactive to light. Oral mucosa moist. NECK: No JVD, no neck masses. CARDIOVASCULAR: S1, S2 heard. Tachycardia. No murmurs. RESPIRATORY SYSTEM: Normal AP diameter. No accessory muscle use. No wheezing, no crackles. ABDOMEN: Soft, bowel sounds present, nontender. No distention. CENTRAL NERVOUS SYSTEM: Cranial nerves II-XII grossly intact, nonfocal. EXTREMITIES: No edema, no erythema. LABORATORY DATA: WBC 5.6, hemoglobin 12.4, hematocrit 37.5, platelets 200. Sodium 135, potassium 4.5, chloride 105, bicarbonate 24, BUN 27, creatinine 1.1, serum glucose 257, calcium 9, magnesium 1.5, total bilirubin 0.5, AST 20, ALT 18, alkaline phosphatase 55. Troponin I of 0.03, troponin 1 of 0.388. Lipase 99. SARS-CoV-2 PCR negative. Influenza A and B PCR negative, RSV PCR negative. IMAGING DATA: CT of the head, preliminary report, no acute findings. CT of the chest, preliminary report, no acute findings. Chest x-ray, no acute cardiopulmonary findings. EKG: Shows wide complex tachycardia with rate of 143, bifascicular block, QTc of 537. ASSESSMENT AND PLAN: This is an 85-year-old female who presents with dizziness, chest pain, and found to have wide complex tachycardia. 1. Chest pain: Non-ST elevated myocardial infarction with troponin of 0.3, could be d from tachycardia, and because of chest pain empirically started on IV heparin. Will follow serial enzymes, repeat EKG and echocardiogram. We will keep n.p.o. until seen by cardiology. Consult cardiology in the a.m. Continue her home Toprol-XL and aspirin. 2. Wide complex tachycardia: In the ER received dose of adenosine and IV amiodarone, currently on amiodarone which she will continue. Await cardiac input. Closely monitor in the tele floor. 3. Hypomagnesemia: Replaced in the ER. We will follow the repeat labs in the a.m. 4. History of chronic systolic congestive heart failure: Ejection fraction of 25% to 30%. Continue her home medication Entresto, Toprol-XL. Currently not on any diuretics. We will monitor for any volume overload. 5. History of hyperlipidemia: Continue statin. 6. History of diabetes: Hold metformin, Januvia. Currently on insulin sliding scale. Follow the blood sugar. 7. History of depression: Continue bupropion and Lexapro. 8. Prolonged qt. Avoid qt prolonging drugs.Replaced magnesium. Follow repet ekg 9. Deep venous thrombosis prophylaxis: On IV heparin. DISPOSITION: Closely monitor in the tele floor. Level 1 full code as per my discussion with the daughter. PT and OT prior to discharge. Social service to help with discharge planning. ALEXIS
[2021-01-31 03:07] LABS: Partial Thromboplastin Ratio 0.9; Partial Thromboplastin Time 24.4 Seconds (21.0-31.0)
[2021-01-31] MEDS: Heparin IV Adult Wt-Based Low-Dose *NO* Bolus Protocol IV SCH (03:29)
[2021-01-31] MEDS: INSULIN ASPART 100 UNITS/ML 3 ML PEN SC SCH ×5 (06:02→23:48)
[2021-01-31 06:09] LABS: Basophils # (auto) 0.01 K/uL (0-0.2); Basophils % (auto) 0.2 %; Eosinophils # (auto) 0.11 K/uL (0-0.5); Eosinophils % (auto) 2.2 %; Hematocrit (blood only) 34.6 % (37-47); Hemoglobin 11.4 g/dL (12.0-16.0); Immature Granulocytes # (auto) 0.01 K/uL (0.00-0.02); Immature Granulocytes % (auto) 0.2 %; Lymphocytes # (auto) 1.83 K/uL (1.2-3.4); Mean Corpuscular Hemoglobin 29.9 pg (25-34); Mean Corpuscular Hgb Conc 32.9 g/dL (32-36); Mean Corpuscular Volume 90.8 fL (80-100); Mean Platelet Volume 10.8 fL (7.4-10.4); Monocytes # (auto) 0.33 K/uL (0.11-0.59); Monocytes % (auto) 6.5 %; Neutrophils % (auto) 54.9 %; Platelet Count 186 K/uL (130-400); RDW Coefficient of Variation 13.2 % (11.5-14.5); RDW Standard Deviation 43.8 fL (36.4-46.3); Red Blood Count 3.81 M/uL (4.2-5.4); White Blood Count 5.09 K/uL (4.8-10.8)
[2021-01-31 06:16] LABS: Estimated Average Glucose 177 mg/dl; Hemoglobin A1C 7.8 % (4.5-5.6)
[2021-01-31 06:47] LABS: Calcium 8.5 mg/dl (8.5-10.1); Creatinine Clr Calc Pharmacy 40.7 ml/min; Est GFR (African American) 67.5; Est GFR (Non-African American) 58.3; Potassium 4.1 mmol/L (3.5-5.1)
[2021-01-31 07:01] LABS: Troponin I 0.48 ng/ml (0-0.045)
--- NOTE | 2021-01-31 07:10 | CT Scan Report ---
CT angio chest PE protocol HISTORY: 85 years-old Female with Chest Pain, eval for PE. Acute chest pain with shortness of breat h TECHNIQUE: Multiple CTA images of the chest were obtained after the intravenous administration of 96 ml Optiray. Coronal and sagittal MIPS were obtained from the axial data set and were submitted for [employer]. All measurements were obtained according to NASCET criteria. A dose lowering technique was ut ilized adhering to the principles of ALARA. COMPARISON: Chest radiograph of same day FINDINGS: Inferior left lung base is not imaged. CTA: The heart is upper limits of normal in size. No pericardial effusion. Extensive coronary artery calci fications. The left heart structures are not well opacified. Extensive calcified plaque of the thorac ic aorta without aneurysm or dissection. Pulmonary artery is opacified to level of the proximal subse gmental branches and demonstrates no filling defects to suggest pulmonary embolus. CT CHEST: Unremarkable thyroid. No pathologically enlarged lymph nodes. Right hemidiaphragmatic elevation. No p neumothorax, pleural effusion or overt pulmonary edema. Mild bibasilar groundglass opacities. 5 mm so lid nodule of the right lower lobe, image 122 series 6. Central airways are patent. No pneumoperitoneum. Wall thickening of the distal esophagus with small hiatal hernia. Unremarkable s oft tissues. No acute fracture. IMPRESSION: 1. No pulmonary emboli. 2. Bibasilar groundglass densities suggest atelectasis. 3. 5 mm solid pulmonary nodule of the right lower lobe. 4. Distal esophageal wall thickening with small hiatal hernia. Please refer to below summary of Fleischner criteria recommendations for follow-up of incidental CT n odules (Agnes Blackmon, Guidelines for management of small pulmonary nodules detected on CT scans: A sta tement from the Fleischner Society, Radiology 237: [id number].) SOLID NODULES Solitary nodule size: <6 mm * Low risk patients: no follow-up needed * high risk patients: optional CT at 12 months Note: newly detected indeterminate nodule in persons 35 years of age or older. * Low risk patients: minimal or absent history of smoking and/or other known risk factors * high risk patients: history of smoking or of other known risk factors (e.g. first degree relative with lung cancer, or exposure to asbestos, radon, uranium) * if a nodule up to 8 mm is partly solid or is ground glass further follow-up is required after 24 m onths to exclude possible slow growing adenocarcinoma (SILVIA) ACT 112: Negative or not required by law. The above report was generated using voice recognition software. It may contain grammatical, syntax o r spelling errors. Electronically signed by: Matthieu Thornton M.D. 01/31/2021 7:09 AM
--- NOTE | 2021-01-31 07:15 | CT Scan Report ---
HEAD CT NONCONTRAST CT DOSE: 967.15 mGy.cm HISTORY: fall TECHNIQUE: Multiaxial CT images of the head were performed without the use of intravenous contrast. A utomated exposure control was utilized for this study. A dose lowering technique was utilized adheri ng to the principles of ALARA. Comparison: Head CT 03/13/2015. Findings: The paranasal sinuses and mastoid air cells are clear. The calvarium and skull base are int act. There is no mass, hematoma, midline shift, acute infarct. White matter hypodensity is nonspecifi c but suggestive of microvascular ischemic change. The ventricles and sulci demonstrate mild age-rela denise involutional changes. Impression: No acute intracranial abnormality. Atrophy and microvascular ischemic changes. ACT 112: Negative or not required by law. Electronically signed by: Anthony Velazquez M.D. 01/31/2021 7:13 AM
[2021-01-31] MEDS: buPROPion XL 150 MG TABCR PO SCH (08:16)
[2021-01-31] MEDS: SACUBITRIL-VALSARTAN 49/51 MG TAB PO SCH ×2 (08:16→21:28)
[2021-01-31] MEDS: ASPIRIN 81 MG ECTAB PO SCH (08:16)
[2021-01-31] MEDS ORDERED: POTASSIUM CHLORIDE CRTAB 20 MEQ TABCR PO STA (09:21)
[2021-01-31 09:31] LABS: Partial Thromboplastin Ratio 1.6; Partial Thromboplastin Time 42.6 Seconds (21.0-31.0)
--- NOTE | 2021-01-31 09:52 | Cardiology Consultation ---
Date of Consultation January 31, 2021 Assessment & Plan (1) Wide-complex tachycardia: This most likely represents an SVT with a bifascicular block. It has been treated with adenosine successfully in the past however last evening they were not successful in the emergency department and started her on amiodarone. She is now in a sinus mechanism again. I would continue to load her with oral amiodarone however, the IV amiodarone can be discontinued. In regard to long- term anticoagulation, I do not believe she is a good candidate due to her early dementia and fall risk. I would recommend that we continue with aspirin and Plavix for now. (2) Troponin level elevated: I think the patient most likely does have some coronary artery disease however, I do not believe that this is due to acute coronary syndrome. I think it is stress-induced due to the tachycardia as well as a component of renal insufficiency. I think we can discontinue the IV heparin and go with dual antiplatelet therapy for now. (3) Cardiomyopathy: The patient has a cardiomyopathy with an estimated left ventricular ejection fraction of around 20-25%. I would continue guideline directed medication. (4) Systolic heart failure: She is [place] Heart Association class II. She did get IV fluids through the night and I hear some crackles at the bases of her lungs. I will give her 20 mg of IV Lasix this morning. Her IV fluids including the heparin and amiodarone have been discontinued. History of Present Illness Attending Physician: Madison Paz MD History of Present Illness This is an 85-year-old female whom I saw in the emergency department earlier this week. She has a bifascicular block and presented with a tachycardia that was wide-complex but resolved after single dose of adenosine. The patient is hard of hearing but also has some dementia. Her daughter was in the emergency department with her and although she lives in her home her daughter lives next door and provides a great deal support. She had a similar presentation in September with a short hospital stay overnight and was discharged home. She does have a history of a cardiomyopathy with an estimated left ventricular ejection fraction of between 20 and 25% along with secondary mitral regurgitation. After discussion with her daughter we decided she would be more comfortable at home with follow-up at our clinic as an outpatient. She returned home and actually was working in her garden a little bit in her garden without difficulty. Unfortunately, last evening she presented again with a wide-complex tachycardia. She was given a bolus of adenosine which did not stop the arrhythmia and she was started on IV amiodarone. Early this morning she converted to normal sinus rhythm where she has remained. During the tachycardia she is symptomatic with some upper back, bilateral arm and chest discomfort. She has had persistent elevation in her troponin dating back to her 2 previous hospital admissions. I do not believe that this is acute coronary syndrome. I think it is stress- induced type II elevation in her troponin also related to her renal insufficiency.. She has no ongoing complaints this morning. Allergies Allergy/AdvReac Type Severity Reaction Status Date / Time amoxicillin Allergy Unknown UNKNOWN Verified 01/30/21 20:58 Home Medications Medication Instructions Recorded Confirmed Type Januvia 100 mg PO QAM 04/15/19 01/30/21 History aspirin 81 mg PO QAM 04/15/19 01/30/21 History escitalopram oxalate 20 mg PO HS 04/15/19 01/30/21 History metformin 500 mg PO BID 04/15/19 01/30/21 History acetaminophen [Tylenol Extra 500 mg PO Q6H PRN 01/29/21 01/30/21 History Strength] bupropion HCl 150 mg PO QAM 01/29/21 01/30/21 History metoprolol succinate 25 mg PO HS 01/29/21 01/30/21 History pantoprazole 40 mg PO HS 01/29/21 01/30/21 History sacubitril-valsartan [Entresto] 1 tab PO BID 01/29/21 01/30/21 History simvastatin 40 mg PO HS 01/29/21 01/30/21 History Patient History Medical History Cardiomyopathy Depression Diabetes Diabetes Hx of migraines Mitral regurgitation Myocardial infarction due to demand ischemia Non-ST elevation [place] (NSTEMI) Paroxysmal supraventricular tachycardia Systolic heart failure, ACC/AHA stage C Ventricular tachycardia Wide-complex tachycardia Surgical History No pertinent past surgical history Family History Other Coronary heart disease Social History Smoking Status: Never smoker Hx Alcohol Use: No Hx Substance Use: No Preferred Language: Sudanese Communication Ability: Effective 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 Beliefs That Will Affect Care: None Current Living Situation: Alone Other Information That Helps Us Care for You: No Feels Safe at Home: Yes Safety Concerns: Feels Safe At This Time Assistive Devices: None Review of Systems Review of Systems: Unobtainable due to cognitive status Physical Exam Physical Exam: General: no acute distress and stated age Head: normocephalic, no masses, lesions, tenderness or abnormalities Eyes: conjunctiva are pink and non-injected, sclera clear Neck: supple, no adenopathy, no bruits, normal jugular venous pulse, no hep atojugular reflux Chest: normal shape and normal respiratory effort Lungs: Crackles at the bases. Cardiac Exam: - regular rate & rhythm, holosystolic murmur- normal S1, normal S2 Pulses: 2(+) throughout Abdomen: abdomen soft, non-tender, no abnormal masses and no hepatosplenomegaly Musculoskeletal: no gait disturbance, no joint inflammation, no deforming arthritis Extremities: no edema and no cyanosis Neuro: grossly normal exam Results & Data ([facility]) Vital Signs (Past 12 Hours) Vital Signs Temp Pulse Pulse Resp BP BP Pulse Ox 01/31/21 08:11 36.5 C 59 L 19 129/70 94 01/31/21 04:00 36.5 C 61 16 135/64 93 01/31/21 00:30 36.3 C L 129 H 18 116/79 96 01/31/21 00:01 117 H 19 01/31/21 00:00 115 H 20 110/55 L 01/30/21 23:51 115 H 27 H 01/30/21 23:50 116 H 25 H 97/63 L 01/30/21 23:40 116 H 29 H 107/62 01/30/21 23:30 116 H 32 H 106/71 01/30/21 23:20 118 H 24 107/71 01/30/21 23:10 116 H 31 H 101/67 01/30/21 23:00 127 H 20 102/70 01/30/21 22:50 121 H 25 H 105/67 01/30/21 22:40 120 H 20 105/91 96 01/30/21 22:30 121 H 25 H 128/81 94 01/30/21 22:20 120 H 19 112/74 93 01/30/21 22:10 117 H 22 120/81 94 01/30/21 22:00 120 H 20 107/74 94 01/30/21 21:50 123 H 17 107/75 94 Laboratory Results Laboratory Results - last 24 hr 01/30/21 01/30/21 01/30/21 20:14 20:14 20:15 WBC 5.63 RBC 4.12 L Hgb 12.4 POC Hgb Hct 37.5 POC Hct MCV 91.0 MCH 30.1 MCHC 33.1 RDW Std Deviation 43.8 RDW Coeff of Yohannes 13.2 Plt Count 200 MPV 10.7 H Immature Gran % (Auto) 0.2 Neut % (Auto) 70.3 Lymph % (Auto) 22.2 Josephine % (Auto) 6.0 Eos % (Auto) 1.1 Baso % (Auto) 0.2 Neut # (Auto) 3.96 Lymph # (Auto) 1.25 Josephine # (Auto) 0.34 Eos # (Auto) 0.06 Baso # (Auto) 0.01 Immature Gran # (Auto) 0.01 PT 10.8 INR 1.1 APTT PTT Ratio POC Sodium Sodium 135 L POC Potassium Potassium 4.5 POC Chloride Chloride 105 Carbon Dioxide 24 POC Total CO2 Anion Gap 6.0 POC Anion Gap POC BUN BUN 27 H Creatinine 1.16 POC Creatinine Est Cr Clr Drug Dosing 31.1 Est GFR ( Amer) 49.0 Est GFR (Non-Af Amer) 42.3 BUN/Creatinine Ratio 23.4 H Glucose 257 H POC Glucose POC Glucose (other) Estimat Average Glucose Hemoglobin A1c Calcium 9.0 POC Ioniz Calcium Kat Magnesium 1.5 L Total Bilirubin 0.5 AST 20 ALT 18 Alkaline Phosphatase 55 Troponin I 0.388 H* Total Protein 6.5 Albumin 3.7 Globulin 2.8 Albumin/Globulin Ratio 1.3 Lipase 99 COVID-19 Eval Order SARS-CoV-2 (PCR) Influenza Type A (PCR) Influenza Type B (PCR) RSV (RT-PCR) 01/30/21 01/30/21 01/30/21 20:15 20:20 20:53 WBC RBC Hgb POC Hgb 13.3 Hct POC Hct 39 MCV MCH MCHC RDW Std Deviation RDW Coeff of Yohannes Plt Count MPV Immature Gran % (Auto) Neut % (Auto) Lymph % (Auto) Josephine % (Auto) Eos % (Auto) Baso % (Auto) Neut # (Auto) Lymph # (Auto) Josephine # (Auto) Eos # (Auto) Baso # (Auto) Immature Gran # (Auto) PT INR APTT 24.4 PTT Ratio 0.9 POC Sodium 134 L Sodium POC Potassium 4.6 Potassium POC Chloride 102 Chloride Carbon Dioxide POC Total CO2 23 L Anion Gap POC Anion Gap 15.0 L POC BUN 26 H BUN Creatinine POC Creatinine 1.1 Est Cr Clr Drug Dosing Est GFR ( Amer) Est GFR (Non-Af Amer) BUN/Creatinine Ratio Glucose POC Glucose POC Glucose (other) 255 H Estimat Average Glucose Hemoglobin A1c Calcium POC Ioniz Calcium Kat 1.12 Magnesium Total Bilirubin AST ALT Alkaline Phosphatase Troponin I Total Protein Albumin Globulin Albumin/Globulin Ratio Lipase COVID-19 Eval Order [facility]Rsv at [facility] SARS-CoV-2 (PCR) Influenza Type A (PCR) Influenza Type B (PCR) RSV (RT-PCR) 01/30/21 01/31/21 01/31/21 20:53 05:22 05:32 WBC 5.09 RBC 3.81 L Hgb 11.4 L POC Hgb Hct 34.6 L POC Hct MCV 90.8 MCH 29.9 MCHC 32.9 RDW Std Deviation 43.8 RDW Coeff of Yohannes 13.2 Plt Count 186 MPV 10.8 H Immature Gran % (Auto) 0.2 Neut % (Auto) 54.9 Lymph % (Auto) 36.0 Josephine % (Auto) 6.5 Eos % (Auto) 2.2 Baso % (Auto) 0.2 Neut # (Auto) 2.80 Lymph # (Auto) 1.83 Josephine # (Auto) 0.33 Eos # (Auto) 0.11 Baso # (Auto) 0.01 Immature Gran # (Auto) 0.01 PT INR APTT PTT Ratio POC Sodium Sodium POC Potassium Potassium POC Chloride Chloride Carbon Dioxide POC Total CO2 Anion Gap POC Anion Gap POC BUN BUN Creatinine POC Creatinine Est Cr Clr Drug Dosing Est GFR ( Amer) Est GFR (Non-Af Amer) BUN/Creatinine Ratio Glucose POC Glucose 199 H POC Glucose (other) Estimat Average Glucose Hemoglobin A1c Calcium POC Ioniz Calcium Kat Magnesium Total Bilirubin AST ALT Alkaline Phosphatase Troponin I Total Protein Albumin Globulin Albumin/Globulin Ratio Lipase COVID-19 Eval Order SARS-CoV-2 (PCR) NEGATIVE Influenza Type A (PCR) Negative Influenza Type B (PCR) Negative RSV (RT-PCR) Negative 01/31/21 01/31/21 01/31/21 05:32 05:32 09:03 WBC RBC Hgb POC Hgb Hct POC Hct MCV MCH MCHC RDW Std Deviation RDW Coeff of Yohannes Plt Count MPV Immature Gran % (Auto) Neut % (Auto) Lymph % (Auto) Josephine % (Auto) Eos % (Auto) Baso % (Auto) Neut # (Auto) Lymph # (Auto) Josephine # (Auto) Eos # (Auto) Baso # (Auto) Immature Gran # (Auto) PT INR APTT 42.6 H PTT Ratio 1.6 POC Sodium Sodium 140 POC Potassium Potassium 4.1 POC Chloride Chloride 110 H Carbon Dioxide 26 POC Total CO2 Anion Gap 4.0 POC Anion Gap POC BUN BUN 19 H Creatinine 0.89 POC Creatinine Est Cr Clr Drug Dosing 40.7 Est GFR ( Amer) 67.5 Est GFR (Non-Af Amer) 58.3 BUN/Creatinine Ratio 21.0 H Glucose 189 H POC Glucose POC Glucose (other) Estimat Average Glucose 177 Hemoglobin A1c 7.8 H Calcium 8.5 POC Ioniz Calcium Kat Magnesium 2.0 Total Bilirubin AST ALT Alkaline Phosphatase Troponin I 0.480 H* Total Protein Albumin Globulin Albumin/Globulin Ratio Lipase COVID-19 Eval Order SARS-CoV-2 (PCR) Influenza Type A (PCR) Influenza Type B (PCR) RSV (RT-PCR) Diagnostic Findings EKG this morning reveals a bifascicular block and a sinus rhythm Medications Administered Current Inpatient Medications Acetaminophen (Acetaminophen 325 Mg Tab) 650 mg PO Q4H PRN PRN Reason: Pain or Fever Stop: 03/02/21 00:52 Amiodarone HCl (Amiodarone 200 Mg Tab) 200 mg PO TIDM [facility] Stop: 03/02/21 09:19 Aspirin (Aspirin 81 Mg Ectab) 81 mg PO QAM BRISEIDA Stop: 03/02/21 08:59 Last Admin: 01/31/21 08:16 Dose: 81 mg Documented by: Atorvastatin Calcium (Atorvastatin 20 Mg Tab) 20 mg PO QAM BRISEIDA Stop: 03/03/21 08:59 Bupropion HCl (Bupropion Xl 150 Mg Tabcr) 150 mg PO QAM [facility] Stop: 03/02/21 08:59 Last Admin: 01/31/21 08:16 Dose: 150 mg Documented by: Clopidogrel Bisulfate (Clopidogrel Bisulfate 75 Mg Tab) 75 mg PO QAM [facility] Stop: 03/02/21 09:44 Dextrose (Dextrose 50% 50 Ml Syringe) 25 - 50 ml IV UD PRN; Protocol PRN Reason: Hypoglycemia Protocol Stop: 03/02/21 01:14 Escitalopram Oxalate (Escitalopram Oxalate 20 Mg Tab) 20 mg PO [facility] Stop: 03/02/21 20:59 Glucagon (Glucagon For Inj 1 Mg Vial) 1 mg SQ UD PRN; Protocol PRN Reason: Hypoglycemia Protocol Stop: 03/02/21 01:14 Glucose (Glucose 40% Gel 15 Gm Tube) 15 - 30 gm PO UD PRN; Protocol PRN Reason: Hypoglycemia Protocol Stop: 03/02/21 01:14 Glucose (Glucose 10 Tabs/Tube) 4 - 8 tabs PO UD PRN; Protocol PRN Reason: Hypoglycemia Protocol Stop: 03/02/21 01:14 Insulin Aspart (Insulin Aspart 100 Units/Ml 3 Ml Pen) 0 units SC Q6 [facility] Stop: 03/02/21 05:59 Last Admin: 01/31/21 06:02 Dose: 2 units Documented by: Metoprolol Succinate (Metoprolol Succ 25mg Ext Rel Tab) 25 mg PO [facility] Stop: 03/02/21 20:59 Miscellaneous (Carbohydrates For Hypoglycemia ) 15 - 30 gm PO UD PRN PRN Reason: Hypoglycemia Treatment Stop: 03/02/21 01:14 Nitroglycerin (Nitroglycerin Sl 0.4 Mg/Tab Tab) 0.4 mg SL UD PRN PRN Reason: Chest Pain Stop: 03/02/21 00:52 Pantoprazole Sodium (Pantoprazole 40 Mg Tab) 40 mg PO [facility] Stop: 03/02/21 20:59 Polyethylene Glycol (Polyethylene (Miralax) 17 Gm Pack) 17 gm PO DAILY PRN PRN Reason: Constipation Stop: 03/02/21 00:52 Sacubitril/Valsartan (Sacubitril-Valsartan 49/51 Mg Tab) 1 tab PO BID [facility] Stop: 03/02/21 08:59 Last Admin: 01/31/21 08:16 Dose: 1 tab Documented by:
[2021-01-31] MEDS ORDERED: FUROSEMIDE 20 MG in SYRINGE 0 ML IV ONE (10:00)
[2021-01-31] MEDS: AMIODARONE 200 MG TAB PO SCH ×3 (10:06→17:37)
[2021-01-31] MEDS: CLOPIDOGREL BISULFATE 75 MG TAB PO SCH (11:01)
[2021-01-31] MEDS ORDERED: Nursing to Pharmacy Communication SCH (11:15)
--- NOTE | 2021-01-31 15:39 | Hospitalist Progress Note ---
Date of Service January 31, 2021 Assessment & Plan (1) Wide-complex tachycardia: Admitted with palpitation shortness of breath dyspnea on exertion noted to be in wide-complex tachycardia Recent admission in ER Patient input from cardiology, IV amiodarone discontinued patient is continue with p.o. amiodarone load Not a candidate for anticoagulation secondary to advanced age dementia high fall risk Patient will continue with Plavix Acute CHF with underlying systolic heart failure Due to tachyarrhythmia, given 1 dose of Lasix by cardiology Disposition: Continue to monitor in PCU possible discharge home in next 1-2 days Admission and Anticipated Discharge Date Admission Date: January 30, 2021 Subjective Patient reports improvement in symptoms no chest pain or discomfort, very pleasant Mentions she does not have any palpitation or dizzy spells Eager to be discharged home Review of Systems Review of Systems: All systems reviewed & are unremarkable except as noted in Subjective Physical Exam Physical Exam: Physical exam: General: No acute distress, alert awake oriented x3 HEENT: PERRLA, EOMI, Heart: Regular S1-S2, no carotid bruit, no JVD, no lower extremity edema Lungs: Clear to auscultate, no wheeze or rales Abdomen: Soft nontender, no organomegaly Extremity: No cyanosis, no deformity, normal strength 5 out of 5 with upper and lower Neuro: No focal neurological deficit normal speech, normal visual field, Motor strength : normal both upper and lower extremity, sensation intact Psych: Alert awake oriented x3, normal affect Results & Data Results & Data ([facility]) Vital Signs (Past 12 Hours) Vital Signs Temp Pulse Pulse Resp BP Pulse Ox 01/31/21 15:18 36.3 C L 62 19 140/59 L 96 01/31/21 11:37 36.4 C L 58 L 18 138/70 93 01/31/21 08:11 36.5 C 59 L 19 129/70 94 01/31/21 08:00 60 01/31/21 04:00 36.5 C 61 16 135/64 93
--- NOTE | 2021-01-31 16:04 | Communication Note ---
Date of Service: January 31, 2021 update given to daughter Halie pts sister Caridad : [phone] and Daughter in law Lyla Pritchett [phone] will be able to provide ride to home when pt is discharged Madison Paz MD
--- NOTE | 2021-01-31 20:14 | Electrocardiogram Report ---
Test Reason : Blood Pressure : / mmHG Vent. Rate : 143 BPM Atrial Rate : 127 BPM P-R Int : 000 ms QRS Dur : 146 ms QT Int : 348 ms P-R-T Axes : 000 -63 101 degrees QTc Int : 537 ms Wide QRS tachycardia with Premature supraventricular complexes , possibly atrial flutter vs SVT Right bundle branch block Left anterior fascicular block Bifascicular block Left ventricular hypertrophy with repolarization abnormality Abnormal ECG When compared with ECG of 29-JAN-2021 08:09, Wide QRS tachycardia has replaced Sinus rhythm Vent. rate has increased BY 67 BPM Confirmed by Shahriar Jacobson ([id number]) on 01/31/2021 8:13:58 PM Referred By: REFERRED SELF Confirmed By:Shahriar Jacobson
[2021-01-31] MEDS ORDERED: SIMVASTATIN 40 MG TAB PO SCH (21:00)
[2021-01-31] MEDS ORDERED: METOPROLOL SUCC 25MG EXT REL TAB PO SCH (21:00)
[2021-01-31] MEDS ORDERED: ESCITALOPRAM OXALATE 20 MG TAB PO SCH (21:00)
[2021-01-31] MEDS ORDERED: PANTOprazole 40 MG TAB PO SCH (21:00)
--- NOTE | 2021-02-01 06:09 | Electrocardiogram Report ---
Test Reason : Blood Pressure : / mmHG Vent. Rate : 143 BPM Atrial Rate : 000 BPM P-R Int : 000 ms QRS Dur : 140 ms QT Int : 354 ms P-R-T Axes : 000 -62 108 degrees QTc Int : 546 ms Wide QRS tachycardia , probable SVT Right bundle branch block Left anterior fascicular block Bifascicular block Left ventricular hypertrophy with repolarization abnormality Abnormal ECG When compared with ECG of 30-JAN-2021 19:33, Premature supraventricular complexes are no longer Present Confirmed by Shahriar Jacobson ([id number]) on 02/01/2021 6:08:41 AM Referred By: REFERRED SELF Confirmed By:Shahriar Jacobson
--- NOTE | 2021-02-01 06:10 | Electrocardiogram Report ---
Test Reason : Blood Pressure : / mmHG Vent. Rate : 143 BPM Atrial Rate : 000 BPM P-R Int : 000 ms QRS Dur : 138 ms QT Int : 352 ms P-R-T Axes : 000 -64 102 degrees QTc Int : 543 ms Wide QRS tachycardia with occasional Premature supraventricular complexes , consider SVT vs atrial fl utter Right bundle branch block Left anterior fascicular block Bifascicular block Left ventricular hypertrophy with repolarization abnormality Abnormal ECG When compared with ECG of 30-JAN-2021 19:48, Premature ventricular complexes are now Present Premature supraventricular complexes are now Present Confirmed by Shahriar Jacobson ([id number]) on 02/01/2021 6:10:34 AM Referred By: REFERRED SELF Confirmed By:Shahriar Jacobson
--- NOTE | 2021-02-01 06:14 | Electrocardiogram Report ---
Test Reason : Blood Pressure : / mmHG Vent. Rate : 130 BPM Atrial Rate : 096 BPM P-R Int : 000 ms QRS Dur : 150 ms QT Int : 382 ms P-R-T Axes : 000 -62 100 degrees QTc Int : 562 ms Poor data quality, interpretation may be adversely affected Wide QRS tachycardia Right bundle branch block Left anterior fascicular block Bifascicular block Left ventricular hypertrophy with repolarization abnormality Abnormal ECG When compared with ECG of 30-JAN-2021 19:53, Premature supraventricular complexes are no longer Present Confirmed by Shahriar Jacobson ([id number]) on 02/01/2021 6:14:49 AM Referred By: REFERRED SELF Confirmed By:Shahriar Jacobson
--- NOTE | 2021-02-01 06:16 | Electrocardiogram Report ---
Test Reason : Blood Pressure : / mmHG Vent. Rate : 118 BPM Atrial Rate : 127 BPM P-R Int : 000 ms QRS Dur : 154 ms QT Int : 398 ms P-R-T Axes : 000 -61 098 degrees QTc Int : 557 ms Wide QRS rhythm Right bundle branch block Left anterior fascicular block Bifascicular block Left ventricular hypertrophy with repolarization abnormality Abnormal ECG When compared with ECG of 30-JAN-2021 20:13, No significant change Confirmed by Shahriar Jacobson ([id number]) on 02/01/2021 6:15:31 AM Referred By: REFERRED SELF Confirmed By:Shahriar Jacobson
--- NOTE | 2021-02-01 06:27 | Electrocardiogram Report ---
Test Reason : Blood Pressure : / mmHG Vent. Rate : 059 BPM Atrial Rate : 059 BPM P-R Int : 154 ms QRS Dur : 146 ms QT Int : 504 ms P-R-T Axes : -07 -30 -41 degrees QTc Int : 498 ms Sinus bradycardia with Premature atrial complexes Left axis deviation Right bundle branch block Voltage criteria for left ventricular hypertrophy Abnormal ECG When compared with ECG of 30-JAN-2021 20:29, Sinus rhythm has replaced Wide QRS rhythm Vent. rate has decreased BY 59 BPM Confirmed by Shahriar Jacobson ([id number]) on 02/01/2021 6:27:01 AM Referred By: REFERRED SELF Confirmed By:Shahriar Jacobson
[2021-02-01] MEDS: INSULIN ASPART 100 UNITS/ML 3 ML PEN SC SCH ×2 (08:00→12:04)
[2021-02-01] MEDS: AMIODARONE 200 MG TAB PO SCH (08:11)
[2021-02-01] MEDS: ASPIRIN 81 MG ECTAB PO SCH (08:11)
[2021-02-01] MEDS: buPROPion XL 150 MG TABCR PO SCH (08:15)
[2021-02-01] MEDS: CLOPIDOGREL BISULFATE 75 MG TAB PO SCH (08:16)
[2021-02-01] MEDS: SACUBITRIL-VALSARTAN 49/51 MG TAB PO SCH (08:16)
[2021-02-01] MEDS ORDERED: ATORVASTATIN 20 MG TAB PO SCH (09:00)
--- NOTE | 2021-02-01 09:06 | Cardiology Progress Note ---
Date of Service February 01, 2021 Assessment & Plan (1) Wide-complex tachycardia: Patient was in SVT with a bifascicular block when presenting to the ED. It has been treated with adenosine successfully in the past however during this event patient required amiodarone. Patient maintains in normal sinus rhythm today with no acute events over night. LVEF remained normal at 55-60%. Patient should continue on Amiodarone following discharge. At this time amiodarone should be decreased to 200 mg twice daily and will follow up with cardiology as an out patient in 1 month. In regard to long-term anticoagulation, I do not believe she is a good candidate due to her early dementia and fall risk. I would recommend that we continue with aspirin and Plavix for now. (2) Troponin level elevated: Elevated troponin unlikley to be due to ACS. Trops peaked at 0672 and now tredning downward. Likely stress-induced due to the tachycardia as well as a component of renal insufficiency. Patient should continue ASA and Plavix. (3) Cardiomyopathy: LVEF improved on recent echo to 55-60%. Patient should continue all goal directed medical therapies including Entresto, and metoprolol. (4) Systolic heart failure: She is [place] Heart Association class II. Euvolemic on exam. No complaints suggestive of hypervolemia. Admission and Anticipated Discharge Date Admission Date: January 30, 2021 Supervising Physician Co-Signing Physician Notes Patient seen and examined with Ronda OTTO. Agree with findings and assessment as above. Patient denies recurrence of palpitations or chest discomfort overnight. Telemetry reviews no further arrhythmias. Okay for discharge today. Would discharge home on amiodarone 200 mg twice daily. Follow-up with cardiology in 1 month. Subjective Patient at time of examination was sitting up and resting in her chair. No acute events over night. Patient states she is feeling well and eager to get home. No further episodes of chest pain, palpitations, dizziness, or weakness. No complaints of orthopnea, however, did not sleep well over night- could not get comfortable. Tele reviewed. Patient has been in SR in the 60-70s. BP 153/66, prior to morning medicines. Patient is asymptomatic. Echo results reviewed with Dr. Palmer, lilia. LVEF 55-60%. No chest pain, shortness of breath, palpitations, dizziness, syncope or near syncope. No orthopnea, PND, or increased lower extremity edema. No fever, chills, cough, hematochezia, melena, or hemoptysis. Review of Systems Review of Systems: All systems reviewed & are unremarkable except as noted in HPI & below Physical Exam Physical Exam: General: No acute distress. A+Ox3. HEENT: Normocephalic. Atraumatic. PERRL. EOMI. Conjunctiva and sclera clear. NECK: No carotid bruits. No JVD. Carotid upstrokes are brisk. Heart: RRR. S1 and S2 noted. +2/6 holosystolic murmur. No rubs, gallops. PMI non displaced. Lungs: Clear to auscultation. No wheezes, rhonchi, rales. Abdomen: Normal bowel sounds. Soft. Nontender. No masses or organomegaly. No abdominal bruits. Extremities: No edema. No clubbing or cyanosis. Pulses: radial=2/4, posterior tibial=2/4, dorsalis pedis = 2/4. NEURO: No focal deficits. PSYCH: Normal. Results & Data ([facility]) Vital Signs (Past 12 Hours) Vital Signs Temp Pulse Pulse Resp BP Pulse Ox Pulse Ox 02/01/21 07:20 36.5 C 61 19 153/66 H 93 02/01/21 07:11 61 02/01/21 03:11 36.4 C L 58 L 12 138/73 94 02/01/21 00:53 91 02/01/21 00:30 70 01/31/21 23:34 36.7 C 61 24 121/68 91
--- NOTE | 2021-02-01 13:03 | Discharge Summary ---
Date of Service February 01, 2021 Admission HPI Per Admitting Provider DICTATED BY: Murphy Park MD DATE OF ADMISSION: 01/30/2021 CHIEF COMPLAINT: Chest pain, dizziness. HISTORY OF PRESENT ILLNESS: An 85-year-old female with past medical history significant for type 2 diabetes, chronic kidney disease stage III, history of chronic systolic congestive heart failure, ejection fraction of 25% to 30%, nonischemic mitral valve regurgitation, bifascicular bundle branch block, nonrheumatic tricuspid valve regurgitation, left atrial enlargement, depression with anxiety, who presents with chest pain, dizziness, and not feeling well. The patient lives alone, ambulates without any support. Daughter lives next door. The patient was in the ER yesterday with a similar issue and she was found to be in wide complex tachycardia, which was resolved after a dose of adenosine. Seen by cardiology and as the patient did fine she was discharged home. As per daughter after going home, she did fine, she even worked in the garden and two out some weeds and did not have any issues last night, but today she slept whole day, not eating or drinking much and later in the day, she complained of chest pain and similar kind of symptoms and when daughter checked her systolic blood pressure was in 100s, diastolic in the 60s, but heart rate was again in like 130s and 140s, so she was brought in here and found to be in wide complex tachycardia. Adenosine was tried again, but it did not resolve the tachycardia and two doses of amiodarone 150 mg were given, which also slowed the heart rate, but did not help much. At that time, she was started on amiodarone drip and also cardiology on-call was notified. The patient says currently chest pain is resolved. Denies any headache. When her sugar is high, she gets some blurred visions. No runny nose, no sore throat, no cough, no shortness of breath, no nausea, no abdominal pain. Normal bowel and bladder movements. She says the appetite is good and she swallows okay. Principal Diagnosis Wide-complex tachycardia Chronic diastolic CHF Discharge Exam Physical exam: General: No acute distress, alert awake oriented x3 HEENT: PERRLA, EOMI, Heart: Regular S1-S2, no carotid bruit, no JVD, no lower extremity edema Lungs: Clear to auscultate, no wheeze or rales Abdomen: Soft nontender, no organomegaly Extremity: No cyanosis, no deformity, normal strength 5 out of 5 with upper and lower Neuro: No focal neurological deficit normal speech, normal visual field, Motor strength : normal both upper and lower extremity, sensation intact Psych: Alert awake oriented x3, normal affect Discharge Data Allergies Allergy/AdvReac Type Severity Reaction Status Date / Time amoxicillin Allergy Unknown UNKNOWN Verified 01/30/21 20:58 Consultations 01/30/21 21:31 ED Decision to Admit Stat 01/31/21 08:00 Consult Cardiology Routine Ordered Studies 01/30/21 19:36 CT angio chest PE protocol Urgent 01/30/21 19:57 CT head/brain wo con Urgent Hospital Course (1) Wide-complex tachycardia: Admitted with palpitation shortness of breath dyspnea on exertion noted to be in wide-complex tachycardia Recent admission in ER with similar symptoms Patient input from cardiology, IV amiodarone discontinued patient is continue with p.o. amiodarone load Patient remained in sinus with rate controlled overnight, amiodarone dose adjusted to 200 mg twice daily Simvastatin discontinued for drug reaction with amiodarone Low-dose Lipitor 20 mg daily ordered Not a candidate for anticoagulation secondary to advanced age dementia high fall risk Patient will continue with Plavix History of chronic CHF with diastolic heart failure Developed pulmonary congestion/acute decompensation /shortness of breath Due to tachyarrhythmia, given 1 dose of Lasix by cardiology Volume status improved to baseline, No further diuresis needed Mild elevation of troponin Due to tachyarrhythmia, doubt any coronary thrombotic event Cardiology following Echo shows no wall motion abnormality Disposition: Will to be discharged home today Total Time Total Time Spent Total Time Spent (In Minutes): 35 minutes Total Time Includes: Examination of the Patient, Discharge Planning and Medication Reconciliation Discharge Plan Discharge Items Patient Disposition: Home - Home Health Services Reason For Visit: CHEST PAIN Discharge Diagnosis: Wide-complex tachycardia Chronic diastolic CHF Activity: Per Instructions section Activity Comment: As tolerated Non-emergency contact: Primary Care Provider Call non-emergency contact if: you have any medication questions Follow-up/Referrals: Zacarias Rowland, [Undercutter Operator] - 02/25/21 11:00 am (Please follow up with Dr. Rowland on Thursday02/25/21 at 11:00 am. Please arrive to the office at 10:45 am for your appointment. If you are unable to keep this appointment, please call the office to reschedule at [phone]. ) Daisha Workman PA-C [Primary Care Provider] - 02/05/21 2:20 pm (Please follow up with Daisha Workman PA-C on Thursday02/05/21 at 2:20 pm. Please arrive to the office at 2:05 pm for your appointment. If you are unable to keep this appointment, please call the office to reschedule at [phone]. ) Diet: Heart Healthy Addtl Attending Provider Instructions: Please take all medications as instructed on discharge list below. It is recommended that you follow-up with your primary care physician within 1-2 weeks of hospital discharge to ensure you are still doing well. Please call if you have any questions or problems. You can reach a [facility] hospitalist on duty at [facility] 24 hours a day by calling [phone] Pending Studies at Discharge: No Stand-Alone Forms: My [facility], Smoking Cessation Medications and DC Order Prescriptions: New atorvastatin 20 mg Tablet 20 mg PO QAM 30 Days Qty: 30 RF: 0 amiodarone 200 mg Tablet 200 mg PO BID 30 Days Qty: 60 RF: 0 clopidogrel 75 mg Tablet 75 mg PO QAM 30 Days Qty: 30 RF: 0 Continued metformin 500 mg tablet extended release 24 hr 500 mg PO BID RF: 0 escitalopram oxalate 20 mg tablet 20 mg PO HS RF: 0 Januvia 100 mg tablet 100 mg PO QAM RF: 0 aspirin 81 mg Tablet,Delayed Release (Dr/Ec) 81 mg PO QAM RF: 0 acetaminophen [Tylenol Extra Strength] 500 mg Tablet 500 mg PO Q6H PRN (Reason: Pain) RF: 0 pantoprazole 40 mg tablet,delayed release (DR/EC) 40 mg PO HS RF: 0 metoprolol succinate 25 mg tablet extended release 24 hr 25 mg PO HS RF: 0 bupropion HCl 150 mg tablet extended release 24 hr 150 mg PO QAM RF: 0 Entresto 49-51 mg tablet 1 tab PO BID RF: 0 Discontinued simvastatin 40 mg tablet 40 mg PO HS RF: 0 Discharge Orders: Discharge Order (Routine); Ordered 04/30/21 Ordered By: Madison Elliott/Other Patient Handouts: Managing Type 2 Diabetes Admission Data Admit Date/Time: 01/30/21 23:54 Attending Provider: Madison Paz Admit Provider: Murphy Park Primary Care Provider: Daisha Workman Other Providers: Murphy Park ; Zacarias Rowland Other Interventions: Discharge Summary Assessment (RN) Last Done: 02/01/21 12:06
--- NOTE | 2021-02-01 13:05 | Electrocardiogram Report ---
Test Reason : Blood Pressure : / mmHG Vent. Rate : 060 BPM Atrial Rate : 060 BPM P-R Int : 164 ms QRS Dur : 148 ms QT Int : 528 ms P-R-T Axes : 029 -58 -15 degrees QTc Int : 528 ms Normal sinus rhythm with sinus arrhythmia Right bundle branch block Left anterior fascicular block Bifascicular block Minimal voltage criteria for LVH, may be normal variant Abnormal ECG When compared with ECG of 31-JAN-2021 04:15, Premature atrial complexes are no longer Present Nonspecific T wave abnormality, improved in Lateral leads Confirmed by Ben Mc ([id number]) on 02/01/2021 1:05:10 PM Referred By: REFERRED SELF Confirmed By:Ben Mc
[2021-02-01] MEDS ORDERED: AMIODARONE 200 MG TAB PO SCH (21:00)
--- NOTE | 2021-02-13 12:22 | Coding Query ---
CODING QUERY To promote full compliance with coding requirements relating to patient care, provider participation is requested in all cases of it technical support specialist uncertainty. Please assist us with the question(s) below: Coding Question(s): 1. The Discharge Summary documents Chronic Diastolic CHF in the Principal Diagnosis Area and in the Hospital Course it documents, "History of chronic CHF with diastolic heart failure Developed pulmonary congestion/acute decompensation /shortness of breath Due to tachyarrhythmia, given 1 dose of Lasix by cardiology Volume status improved to baseline, No further diuresis needed", however, the H&P documents history of Chronic Systolic Congestive Heart Failure and the Cardiology Consultation documents Systolic Heart Failure and Progress Note 01/31 documents, "Acute CHF with underlying systolic heart failure Due to tachyarrhythmia, given 1 dose of Lasix by cardiology". Please specify below, regarding CHF. ( ) Chronic Diastolic CHF that developed Acute Decompensation, given 1 dose of Lasix ( x ) Chronic Systolic CHF that developed Acute Decompensation, given 1 dose of Lasix ( ) Chronic Diastolic CHF with NO Acute Decompensation ( ) Chronic Systolic CHF with NO Acute Decompensation ( ) Other: Please Specify 2. Wide Complex Tachycardia is documented. Cardiology documents, "Wide-complex tachycardia: Patient was in SVT with a bifascicular block when presenting to the ED. It has been treated with adenosine successfully in the past however during this event patient required amiodarone". Please specify below, in your clinical opinion regarding Wide Complex Tachycardia. ( x) Wide Complex Tachycardia is SVT with a bifascicular block ( ) Wide Complex Tachycardia is Other: Please Specify ( ) Wide Complex Tachycardia is Unknown/Unspecified 3. Elevated Troponin is documented with H&P documenting Non-ST Elevated Myocardial Infarction and Cardiology Consultation documents, "Troponin level elevated: I think the patient most likely does have some coronary artery disease however, I do not believe that this is due to acute coronary syndrome. I think it is stress-induced due to the tachycardia as well as a component of renal insufficiency", as well as, "I do not believe that this is acute coronary syndrome. I think it is stress-induced type II elevation in her troponin also related to her renal insufficiency", and Discharge Summary documents, "Mild elevation of troponin Due to tachyarrhythmia, doubt any coronary thrombotic event Cardiology following Echo shows no wall motion abnormality". It is not clear if documentation of Myocardial Infarction is ruled-out or is felt to be Type II, or just elevated troponin. Please specify below in your clinical opinion. (x ) Type 2 Myocardial Infarction ( ) NSTEMI ( ) Other [place]: Please Specify ( ) Elevated Troponin only, No Type 2 WA or other [place] ( ) Other: Please Specify Physician's Response(s): Thank you Jo Fajardo Principal Diagnosis: "that condition established after study, to be chiefly responsible for occasioning the admission of the patient to the hospital for care." Co-Existing Principal Diagnosis: "when two or more diagnoses equally meet the criteria for principal diagnosis as determined by the circumstances of admission, diagnostic work up, and/or therapy provided, and the Alphabetic Index, Tabular List, or another coding guideline does not provide sequencing direction, any one of the diagnoses may be sequenced first." "When the physician has documented what appears to be a current diagnosis in the body of the record, but has not included the diagnosis in the final diagnostic statement, the physician should be asked whether the diagnosis should be added." (Source [facility]oding [facility] 2 QTR90. p3-4) [facility]
== END 2021-02-01 14:10 | disposition home health service (06) | DRG 280 ==
LOC: ED 19:27 → 2S 23:54